=== PATIENT | male | born 1955 | race Caucasian/White ===

== ENCOUNTER 2024-04-10 11:26 | Inpatient (IN) ==
--- NOTE | 2024-04-10 11:45 | Emergency Department Note ---
Impression & Plan Hypoxia ADMIT ED Provider Note HPI: History obtained from patient. The patient is a 68-year-old gentleman with history of schizoaffective disorder, who presents the emergency department from his correctional facility with a chief complaint of altered mental status. Per report, the patient had some altered mentation beyond his baseline this morning and therefore was referred to the ER by medical staff at the intermediate. On arrival here to the ED the patient was noted to be hypotensive in the 60s, he was also hypoxic at 76 on room air. Patient was placed on nasal cannula oxygen and brought back to room B1 emergently for further assessment. On arrival here to the ED the patient is alert and he is able to follow commands, he is not able to provide me with much history and this is reportedly his baseline with history of schizoaffective disorder. He is responsive to verbal commands and appears to be protecting his airway without issue. ROS: - Per HPI Differential Diagnosis: Sepsis, pneumonia, stroke, intracranial hemorrhage, viral upper respiratory infection/COVID-19/influenza A, pleural effusion, pulmonary edema, acute coronary syndrome, pulmonary embolism, amongst other potential pathologies. *Outpatient medications and allergy history reviewed. 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, Psychiatric: Cooperative, confused at baseline with schizoaffective disorder INDEPENDENT INTERPRETATIONS: monitor tech: (As interpreted by myself): - An order was placed for continuous cardiac monitoring - Patient was noted to be in sinus rhythm with a rate of 98 EKG: (As interpreted by myself): Rate: 93 Rhythm: Normal sinus rhythm Intervals: Within normal limits ST changes: No ST elevation Time: 1143 Chest x-ray: (As interpreted by myself): Multifocal pneumonia pattern Interventions provided in ED: -IV fluid bolus, IV cefepime, IV azithromycin Medical Decision Making: IV was established and lab work obtained, patient was placed on teletypesetter monitor. Patient's blood pressure improved on reassessment into the 80s prior to IV fluids being initiated. Lab work shows no leukocytosis, hemoglobin is stable at 13.4, platelet count is normal, venous blood gas shows pH of 7.3, pCO2 is normal. CMP does not show any critical findings, creatinine is elevated at 1.55 with unclear baseline, lactic acid is also elevated at 3.5. Patient was given over 30 cc/kg of IV fluid and blood pressure improved to 101/64 prior to admission, troponin is noted to be negative. EKG per my interpretation shows normal sinus rhythm without any acute ischemic changes. Urinalysis shows trace ketones without obvious infection. Viral panel testing was obtained and is negative. Chest x-ray per my interpretation shows multifocal pneumonia pattern. Patient remained stable on 6 L oxy mask prior to admission. He appears improved on my reassessment. Lactic acid is downtrending on recheck to 2.3. I suspect his symptoms are secondary to multifocal pneumonia. CT imaging of the head was obtained that does not show any evidence of any acute intracranial process. I discussed the patient's presentation with the on-call hospitalist service for [facility], Sona Desai PA-C, and the patient was placed for admission in stable condition to the service of Dr. Lindquist. Consultants/Discussions held with other healthcare providers: -Hospitalist, Dr. Lindquist Disposition discussion held by myself with: -Patient and intermediate staff at the bedside * CRITICAL CARE TIME: ( 48 ) minutes -Management of patient with critical hypotension and hypoxia requiring IV fluid resuscitation and supplemental oxygen for hypoxia at 76% on room air on presentation, time spent at the bedside, interpretation of diagnostic studies, discussion with other healthcare providers and arrangement of admission. Diagnosis: 1. Multifocal pneumonia, acute 2. Hypotension, acute, fluid responsive 3. Hypoxia, acute 4. Lactic acidosis, acute 5. Ketonuria, acute Disposition: Admission Brian Lipscomb DO Emergency Medicine Past Med/Surg History Problem List (Updated 04/10/24 @ 15:01 by Brian Lipscomb DO) Hypoxia (Acute) Schizoaffective disorder Lactic acidosis Multifocal pneumonia Sepsis Medical History (Updated 04/10/24 @ 15:01 by Brian Lipscomb DO) Chronic constipation GERD (gastroesophageal reflux disease) HLD (hyperlipidemia) COPD (chronic obstructive pulmonary disease) Social History Smoking Status: Former smoker Preferred Language: [place] Home Meds Home Medications Medication Instructions Recorded Confirmed albuterol 90 mcg/actuation aerosol 90 mcg inhalation Q4H PRN 04/10/24 04/10/24 inhaler Shortness Of Breath aspirin 81 mg capsule 81 mg PO DAILY 04/10/24 04/10/24 brimonidine 0.2 % eye drops 1 drp ophthalmic (eye) TID 04/10/24 04/10/24 calcium polycarbophil 625 mg 1,250 mg PO BID 04/10/24 04/10/24 tablet (FiberCon) carbamazepine 200 mg tablet 200 mg PO BID 04/10/24 04/10/24 cholecalciferol (vitamin D3) 25 25 mcg PO DAILY 04/10/24 04/10/24 mcg (1,000 unit) tablet ciclesonide 80 mcg/actuation 1 puff inhalation Q12H 04/10/24 04/10/24 aerosol inhaler (Alvesco) levetiracetam 500 mg tablet 500 mg PO BID 04/10/24 04/10/24 levothyroxine 175 mcg tablet 175 mcg PO DAILY 04/10/24 04/10/24 linaclotide 145 mcg capsule 145 mcg PO DAILY 04/10/24 04/10/24 (Linzess) olanzapine 15 mg tablet 15 mg PO HS 04/10/24 04/10/24 omeprazole 40 mg capsule,delayed 40 mg PO BID 04/10/24 04/10/24 release rosuvastatin 10 mg tablet 10 mg PO DAILY 04/10/24 04/10/24 Results & Data (ED) Vital Signs Vital Signs - 24 hr 04/10/24 11:32 04/10/24 11:40 04/10/24 11:41 Temperature 36.6 C Temperature Source Skin Pulse Rate 98 H 96 H Pulse Rate [Right Finger] Pulse Rate from SpO2 Sensor Pulse Rhythm Regular Pulse Rhythm [Right Finger] Pulse Strength [Right Finger] Respiratory Rate 24 24 Respiratory Effort / Characteristics Non-Labored Spontaneous Respiratory Depth Normal Respiratory Pattern Regular Blood Pressure 65/45 L 85/58 L Blood Pressure [Left Arm] Blood Pressure Mean 51 72 Blood Pressure Mean [Left Arm] Blood Pressure Position [Left Arm] Pulse Oximetry 76 L 84 L 88 L Oxygen Delivery Method Room Air Oxymask Oxymask Oxygen Flow Rate 10 10 Sepsis Recent Fever Within 48 Hours No Sepsis New/Unexplained Change in Mental Status N/A Sepsis Action Taken by Nursing No Action Required 04/10/24 11:49 04/10/24 11:50 04/10/24 11:50 Temperature Temperature Source Pulse Rate 102 H 89 Pulse Rate [Right Finger] Pulse Rate from SpO2 Sensor 101 H Pulse Rhythm Pulse Rhythm [Right Finger] Pulse Strength [Right Finger] Respiratory Rate Respiratory Effort / Characteristics Respiratory Depth Respiratory Pattern Blood Pressure 87/67 L 99/67 L Blood Pressure [Left Arm] Blood Pressure Mean 75 71 Blood Pressure Mean [Left Arm] Blood Pressure Position [Left Arm] Pulse Oximetry Oxygen Delivery Method Oxygen Flow Rate Sepsis Recent Fever Within 48 Hours Sepsis New/Unexplained Change in Mental Status Sepsis Action Taken by Nursing 04/10/24 11:51 04/10/24 12:00 04/10/24 12:00 Temperature Temperature Source Pulse Rate 92 H Pulse Rate [Right Finger] Pulse Rate from SpO2 Sensor 93 H Pulse Rhythm Pulse Rhythm [Right Finger] Pulse Strength [Right Finger] Respiratory Rate 20 Respiratory Effort / Characteristics Respiratory Depth Respiratory Pattern Blood Pressure 116/85 116/85 Blood Pressure [Left Arm] Blood Pressure Mean 87 87 Blood Pressure Mean [Left Arm] Blood Pressure Position [Left Arm] Pulse Oximetry 97 Oxygen Delivery Method Oxymask Oxygen Flow Rate 10 Sepsis Recent Fever Within 48 Hours Sepsis New/Unexplained Change in Mental Status Sepsis Action Taken by Nursing 04/10/24 12:00 04/10/24 12:00 04/10/24 12:21 Temperature Temperature Source Pulse Rate 96 H 95 H Pulse Rate [Right Finger] Pulse Rate from SpO2 Sensor 99 H 93 H Pulse Rhythm Pulse Rhythm [Right Finger] Pulse Strength [Right Finger] Respiratory Rate 20 21 Respiratory Effort / Characteristics Respiratory Depth Respiratory Pattern Blood Pressure 116/85 Blood Pressure [Left Arm] Blood Pressure Mean 87 Blood Pressure Mean [Left Arm] Blood Pressure Position [Left Arm] Pulse Oximetry 92 96 Oxygen Delivery Method Oxymask Oxygen Flow Rate 10 Sepsis Recent Fever Within 48 Hours Sepsis New/Unexplained Change in Mental Status Sepsis Action Taken by Nursing 04/10/24 12:21 04/10/24 12:27 04/10/24 12:30 Temperature Temperature Source Pulse Rate 96 H Pulse Rate [Right Finger] 94 H Pulse Rate from SpO2 Sensor 96 H Pulse Rhythm Pulse Rhythm [Right Finger] Regular Pulse Strength [Right Finger] Normal Respiratory Rate 24 20 Respiratory Effort / Characteristics Non-Labored Spontaneous Respiratory Depth Normal Respiratory Pattern Regular Blood Pressure 144/80 H Blood Pressure [Left Arm] 104/72 Blood Pressure Mean 96 Blood Pressure Mean [Left Arm] 82 Blood Pressure Position [Left Arm] Sitting Pulse Oximetry 97 96 Oxygen Delivery Method Oxymask Oxygen Flow Rate 10 Sepsis Recent Fever Within 48 Hours Sepsis New/Unexplained Change in Mental Status Sepsis Action Taken by Nursing 04/10/24 12:45 04/10/24 12:45 04/10/24 12:48 Temperature Temperature Source Pulse Rate 96 H Pulse Rate [Right Finger] 94 H Pulse Rate from SpO2 Sensor 98 H Pulse Rhythm Pulse Rhythm [Right Finger] Regular Pulse Strength [Right Finger] Normal Respiratory Rate 20 21 Respiratory Effort / Characteristics Non-Labored Spontaneous Respiratory Depth Normal Respiratory Pattern Regular Blood Pressure 101/71 Blood Pressure [Left Arm] 101/69 Blood Pressure Mean 80 Blood Pressure Mean [Left Arm] 79 Blood Pressure Position [Left Arm] Sitting Pulse Oximetry 97 97 Oxygen Delivery Method Oxymask Oxygen Flow Rate 10 Sepsis Recent Fever Within 48 Hours Sepsis New/Unexplained Change in Mental Status Sepsis Action Taken by Nursing 04/10/24 12:49 04/10/24 12:57 04/10/24 13:15 Temperature Temperature Source Pulse Rate Pulse Rate [Right Finger] 96 H 95 H Pulse Rate from SpO2 Sensor Pulse Rhythm Pulse Rhythm [Right Finger] Regular Regular Pulse Strength [Right Finger] Normal Normal Respiratory Rate 22 20 Respiratory Effort / Characteristics Non-Labored Spontaneous Non-Labored Spontaneous Respiratory Depth Normal Normal Respiratory Pattern Regular Regular Blood Pressure 109/77 Blood Pressure [Left Arm] 106/76 106/70 Blood Pressure Mean 83 Blood Pressure Mean [Left Arm] 86 82 Blood Pressure Position [Left Arm] Sitting Sitting Pulse Oximetry 95 94 Oxygen Delivery Method Oxymask Oxymask Oxygen Flow Rate 10 6 Sepsis Recent Fever Within 48 Hours Sepsis New/Unexplained Change in Mental Status Sepsis Action Taken by Nursing 04/10/24 14:49 Temperature Temperature Source Pulse Rate Pulse Rate [Right Finger] 96 H Pulse Rate from SpO2 Sensor Pulse Rhythm Pulse Rhythm [Right Finger] Pulse Strength [Right Finger] Respiratory Rate 16 Respiratory Effort / Characteristics Spontaneous Respiratory Depth Respiratory Pattern Blood Pressure Blood Pressure [Left Arm] 101/64 Blood Pressure Mean Blood Pressure Mean [Left Arm] 76 Blood Pressure Position [Left Arm] Pulse Oximetry 93 Oxygen Delivery Method Oxymask Oxygen Flow Rate 6 Sepsis Recent Fever Within 48 Hours Sepsis New/Unexplained Change in Mental Status Sepsis Action Taken by Nursing Laboratory Data 04/10/24 11:45 04/10/24 11:45 Lab Results 04/10/24 04/10/24 04/10/24 Range/Units 11:40 11:45 11:46 WBC 8.09 (4.8-10.8) K/ul RBC 4.41 L (4.70-6.10) M/uL Hgb 13.4 L (14.0-18.0) g/dl POC Hgb (14.0-18.0) g/dl Hct 40.9 L (42.0-52.0) % POC Hct (42-52) % MCV 92.7 (80.0-100.0) fL MCH 30.4 (25.0-34.0) pg MCHC 32.8 (32.0-36.0) g/dL RDW Std Deviation 53.1 H (36.4-46.3) fL RDW Coeff of Yadira 15.9 H (11.5-14.5) % Plt Count 221 (130-400) K/uL MPV 12.3 (9.4-12.4) fL Immature Gran % (Auto) 0.1 % Neut % (Auto) 94.3 % Lymph % (Auto) 3.5 % [place] % (Auto) 1.7 % Eos % (Auto) 0.0 % Baso % (Auto) 0.4 % Neut # (Auto) 7.63 H (1.40-6.50) K/uL Lymph # (Auto) 0.28 L (1.20-3.40) K/uL [place] # (Auto) 0.14 (0.11-0.59) K/uL Eos # (Auto) 0.00 (0.00-0.50) K/uL Baso # (Auto) 0.03 (0.00-0.20) K/uL Immature Gran # (Auto) 0.01 (0.01-0.20) K/uL Toxic Vacuolation 2+ PT 12.2 H (9.0-12.0) Seconds INR 1.1 (0.9-1.1) VBG pH 7.30 L (7.36-7.41) VBG pCO2 47 (38-50) mmHg VBG pO2 33 mmHg VBG HCO3 23 mmol/L VBG O2 Saturation < 60.0 % VBG Base Excess -3.6 mEq/L POC Sodium (135-144) mmol/L Sodium 134 L (136-145) mmol/L POC Potassium (3.3-5.0) mmol/L Potassium 3.3 L (3.5-5.1) mmol/L POC Chloride (101-112) mmol/L Chloride 96 L (98-107) mmol/L Carbon Dioxide 26 (21-32) mmol/L POC Total CO2 (24-31) mmol/L Anion Gap 12 H (3-11) POC Anion Gap (16-25) mmol/L POC BUN (7-18) mg/dl BUN 28 H (6-23) mg/dl Creatinine 1.55 H (0.6-1.4) mg/dl POC Creatinine (0.6-1.3) mg/dl Est Cr Clr Drug Dosing 54.4 ml/min eGFR 49.06 BUN/Creatinine Ratio 18.1 (10-20) Glucose 111 H (70-99(Fasting)) mg/dl POC Glucose 106 H (70-99) mg/dl POC Glucose (other) (70-99) mg/dl Lactate (0.4-2.0) mmol/L Calcium 9.5 (8.6-10.3) mg/dl POC Ioniz Calcium Kaitlynn (1.12-1.32) mmol/l Magnesium 1.8 (1.7-2.4) mg/dl Total Bilirubin 0.9 (0.2-1.0) mg/dl Direct Bilirubin 0.3 H (0-0.2) mg/dl AST 20 (13-39) U/L ALT 15 (7-52) U/L Alkaline Phosphatase 71 (34-104) U/L Troponin I High Sens 6.9 (0-20) pg/ml Total Protein 6.9 (6.0-8.3) gm/dl Albumin 4.1 (3.4-5.0) gm/dl Procalcitonin Cancelled Urine Color Urine Appearance (Clear) Urine pH (4.5-7.5) Ur Specific [place] (1.000-1.030) Urine Protein (Negative) Urine Glucose (UA) (Negative) Urine Ketones (Negative) Urine Blood (Negative) Urine Nitrite (Negative) Urine Bilirubin (Negative) Urine Urobilinogen (Negative) Ur Leukocyte Esterase (Negative) Urine WBC (Auto) (0-5) /hpf Urine RBC (Auto) (0-2) /hpf U Hyaline Cast (Auto) (0-2) /lpf U Epithel Cells (Auto) (0-2) /hpf Urine Bacteria (Auto) (None Seen) Hyaline Casts (None Presnt) /lpf Other Casts (None Prsent) /lpf Adenovirus (PCR) Not Detected (NotDetected) B. pertussis DNA (PCR) Not Detected (NotDetected) B.parapertussis DNA PCR Not Detected (NotDetected) C. pneumoniae DNA (PCR) Not Detected (NotDetected) Coronavirus OC43 (PCR) Not Detected (NotDetected) Coronavirus HKU1 (PCR) Not Detected (NotDetected) Coronavirus 229E (PCR) Not Detected (NotDetected) SARS-CoV-2 (PCR) Not Detected (NotDetected) Coronavirus NL63 (PCR) Not Detected (NotDetected) Human Metapneumovir PCR Not Detected (NotDetected) Influenza Type A (PCR) Not Detected (NotDetected) Influenza Type B (PCR) Not Detected (NotDetected) M. pneumoniae (PCR) Not Detected (NotDetected) Parainfluenza 1 (PCR) Not Detected (NotDetected) Parainfluenza 2 (PCR) Not Detected (NotDetected) Parainfluenza 3 (PCR) Not Detected (NotDetected) Parainfluenza 4 (PCR) Not Detected (NotDetected) RSV (PCR) Not Detected (NotDetected) Entero/Rhino (PCR) Not Detected (NotDetected) 04/10/24 04/10/24 04/10/24 Range/Units 11:52 12:03 12:16 WBC (4.8-10.8) K/ul RBC (4.70-6.10) M/uL Hgb (14.0-18.0) g/dl POC Hgb 14.6 (14.0-18.0) g/dl Hct (42.0-52.0) % POC Hct 43 (42-52) % MCV (80.0-100.0) fL MCH (25.0-34.0) pg MCHC (32.0-36.0) g/dL RDW Std Deviation (36.4-46.3) fL RDW Coeff of Yadira (11.5-14.5) % Plt Count (130-400) K/uL MPV (9.4-12.4) fL Immature Gran % (Auto) % Neut % (Auto) % Lymph % (Auto) % [place] % (Auto) % Eos % (Auto) % Baso % (Auto) % Neut # (Auto) (1.40-6.50) K/uL Lymph # (Auto) (1.20-3.40) K/uL [place] # (Auto) (0.11-0.59) K/uL Eos # (Auto) (0.00-0.50) K/uL Baso # (Auto) (0.00-0.20) K/uL Immature Gran # (Auto) (0.01-0.20) K/uL Toxic Vacuolation PT (9.0-12.0) Seconds INR (0.9-1.1) VBG pH (7.36-7.41) VBG pCO2 (38-50) mmHg VBG pO2 mmHg VBG HCO3 mmol/L VBG O2 Saturation % VBG Base Excess mEq/L POC Sodium 134 L (135-144) mmol/L Sodium (136-145) mmol/L POC Potassium 3.3 (3.3-5.0) mmol/L Potassium (3.5-5.1) mmol/L POC Chloride 96 L (101-112) mmol/L Chloride (98-107) mmol/L Carbon Dioxide (21-32) mmol/L POC Total CO2 23 L (24-31) mmol/L Anion Gap (3-11) POC Anion Gap 19.0 (16-25) mmol/L POC BUN 27 H (7-18) mg/dl BUN (6-23) mg/dl Creatinine (0.6-1.4) mg/dl POC Creatinine 1.6 H (0.6-1.3) mg/dl Est Cr Clr Drug Dosing ml/min eGFR BUN/Creatinine Ratio (10-20) Glucose (70-99(Fasting)) mg/dl POC Glucose (70-99) mg/dl POC Glucose (other) 117 H (70-99) mg/dl Lactate 3.5 H* (0.4-2.0) mmol/L Calcium (8.6-10.3) mg/dl POC Ioniz Calcium Kaitlynn 1.16 (1.12-1.32) mmol/l Magnesium (1.7-2.4) mg/dl Total Bilirubin (0.2-1.0) mg/dl Direct Bilirubin (0-0.2) mg/dl AST (13-39) U/L ALT (7-52) U/L Alkaline Phosphatase (34-104) U/L Troponin I High Sens (0-20) pg/ml Total Protein (6.0-8.3) gm/dl Albumin (3.4-5.0) gm/dl Procalcitonin Urine Color Dark Yellow Urine Appearance Clear (Clear) Urine pH 5.5 (4.5-7.5) Ur Specific [place] 1.015 (1.000-1.030) Urine Protein Trace H (Negative) Urine Glucose (UA) Negative (Negative) Urine Ketones Trace H (Negative) Urine Blood Negative (Negative) Urine Nitrite Negative (Negative) Urine Bilirubin Negative (Negative) Urine Urobilinogen Negative (Negative) Ur Leukocyte Esterase Trace H (Negative) Urine WBC (Auto) 0-5 (0-5) /hpf Urine RBC (Auto) 0-2 (0-2) /hpf U Hyaline Cast (Auto) >20 H (0-2) /lpf U Epithel Cells (Auto) 0-2 (0-2) /hpf Urine Bacteria (Auto) None Seen (None Seen) Hyaline Casts Present A (None Presnt) /lpf Other Casts Convoluted A (None Prsent) /lpf Adenovirus (PCR) (NotDetected) B. pertussis DNA (PCR) (NotDetected) B.parapertussis DNA PCR (NotDetected) C. pneumoniae DNA (PCR) (NotDetected) Coronavirus OC43 (PCR) (NotDetected) Coronavirus HKU1 (PCR) (NotDetected) Coronavirus 229E (PCR) (NotDetected) SARS-CoV-2 (PCR) (NotDetected) Coronavirus NL63 (PCR) (NotDetected) Human Metapneumovir PCR (NotDetected) Influenza Type A (PCR) (NotDetected) Influenza Type B (PCR) (NotDetected) M. pneumoniae (PCR) (NotDetected) Parainfluenza 1 (PCR) (NotDetected) Parainfluenza 2 (PCR) (NotDetected) Parainfluenza 3 (PCR) (NotDetected) Parainfluenza 4 (PCR) (NotDetected) RSV (PCR) (NotDetected) Entero/Rhino (PCR) (NotDetected) 04/10/24 Range/Units 13:59 WBC (4.8-10.8) K/ul RBC (4.70-6.10) M/uL Hgb (14.0-18.0) g/dl POC Hgb (14.0-18.0) g/dl Hct (42.0-52.0) % POC Hct (42-52) % MCV (80.0-100.0) fL MCH (25.0-34.0) pg MCHC (32.0-36.0) g/dL RDW Std Deviation (36.4-46.3) fL RDW Coeff of Yadira (11.5-14.5) % Plt Count (130-400) K/uL MPV (9.4-12.4) fL Immature Gran % (Auto) % Neut % (Auto) % Lymph % (Auto) % [place] % (Auto) % Eos % (Auto) % Baso % (Auto) % Neut # (Auto) (1.40-6.50) K/uL Lymph # (Auto) (1.20-3.40) K/uL [place] # (Auto) (0.11-0.59) K/uL Eos # (Auto) (0.00-0.50) K/uL Baso # (Auto) (0.00-0.20) K/uL Immature Gran # (Auto) (0.01-0.20) K/uL Toxic Vacuolation PT (9.0-12.0) Seconds INR (0.9-1.1) VBG pH (7.36-7.41) VBG pCO2 (38-50) mmHg VBG pO2 mmHg VBG HCO3 mmol/L VBG O2 Saturation % VBG Base Excess mEq/L POC Sodium (135-144) mmol/L Sodium (136-145) mmol/L POC Potassium (3.3-5.0) mmol/L Potassium (3.5-5.1) mmol/L POC Chloride (101-112) mmol/L Chloride (98-107) mmol/L Carbon Dioxide (21-32) mmol/L POC Total CO2 (24-31) mmol/L Anion Gap (3-11) POC Anion Gap (16-25) mmol/L POC BUN (7-18) mg/dl BUN (6-23) mg/dl Creatinine (0.6-1.4) mg/dl POC Creatinine (0.6-1.3) mg/dl Est Cr Clr Drug Dosing ml/min eGFR BUN/Creatinine Ratio (10-20) Glucose (70-99(Fasting)) mg/dl POC Glucose (70-99) mg/dl POC Glucose (other) (70-99) mg/dl Lactate 2.3 H* (0.4-2.0) mmol/L Calcium (8.6-10.3) mg/dl POC Ioniz Calcium Kaitlynn (1.12-1.32) mmol/l Magnesium (1.7-2.4) mg/dl Total Bilirubin (0.2-1.0) mg/dl Direct Bilirubin (0-0.2) mg/dl AST (13-39) U/L ALT (7-52) U/L Alkaline Phosphatase (34-104) U/L Troponin I High Sens (0-20) pg/ml Total Protein (6.0-8.3) gm/dl Albumin (3.4-5.0) gm/dl Procalcitonin Urine Color Urine Appearance (Clear) Urine pH (4.5-7.5) Ur Specific [place] (1.000-1.030) Urine Protein (Negative) Urine Glucose (UA) (Negative) Urine Ketones (Negative) Urine Blood (Negative) Urine Nitrite (Negative) Urine Bilirubin (Negative) Urine Urobilinogen (Negative) Ur Leukocyte Esterase (Negative) Urine WBC (Auto) (0-5) /hpf Urine RBC (Auto) (0-2) /hpf U Hyaline Cast (Auto) (0-2) /lpf U Epithel Cells (Auto) (0-2) /hpf Urine Bacteria (Auto) (None Seen) Hyaline Casts (None Presnt) /lpf Other Casts (None Prsent) /lpf Adenovirus (PCR) (NotDetected) B. pertussis DNA (PCR) (NotDetected) B.parapertussis DNA PCR (NotDetected) C. pneumoniae DNA (PCR) (NotDetected) Coronavirus OC43 (PCR) (NotDetected) Coronavirus HKU1 (PCR) (NotDetected) Coronavirus 229E (PCR) (NotDetected) SARS-CoV-2 (PCR) (NotDetected) Coronavirus NL63 (PCR) (NotDetected) Human Metapneumovir PCR (NotDetected) Influenza Type A (PCR) (NotDetected) Influenza Type B (PCR) (NotDetected) M. pneumoniae (PCR) (NotDetected) Parainfluenza 1 (PCR) (NotDetected) Parainfluenza 2 (PCR) (NotDetected) Parainfluenza 3 (PCR) (NotDetected) Parainfluenza 4 (PCR) (NotDetected) RSV (PCR) (NotDetected) Entero/Rhino (PCR) (NotDetected) Administered Medications Discontinued Medications Sodium Chloride (Nss) 1,000 mls @ 999 mls/hr IV .Q1H1M KATHRIN Stop: 04/10/24 13:45 Last Admin: 04/10/24 11:52 Dose: 999 mls/hr Documented By: TERESA Cefepime HCl (Maxipime 2000mg) 2,000 mg in 20 mls @ 5 mls/min IV NOW STA; Protocol Stop: 04/10/24 13:05 Last Admin: 04/10/24 13:11 Dose: 5 mls/min Documented By: TERESA Sodium Chloride (Nss) 500 mls @ 999 mls/hr IV .Q31M ONE Stop: 04/10/24 13:34 Last Admin: 04/10/24 13:28 Dose: 999 mls/hr Documented By: TERESA Imaging Data Radiologist's Impression: Chest X-Ray 04/10/24 11:41 XR chest 1V portable CLINICAL HISTORY: Sepsis COMPARISON STUDY: No previous studies for comparison. FINDINGS: Multifocal bilateral airspace opacities are greater within the right lung. There is interstitial thickening. No pneumothorax or pleural effusion is identified. Cardiomediastinal silhouette is normal. Prominent gas-filled loops of bowel within the upper abdomen are present. There may be a large amount of stool within the splenic flexure of the colon. IMPRESSION: 1. Extensive bilateral airspace opacities, greater within the right lung, and interstitial thickening. The findings favor multifocal pneumonia. Asymmetric pulmonary edema could appear similar although is considered less likely. Radiographic follow-up to ensure resolution is recommended. 2. Distended loops of bowel within the upper abdomen, likely reflecting colonic loops. Suspected large amount of stool within the splenic flexure of the colon. ACT 112: Negative or not required by law. Electronically signed by: Jaun Bullock M.D. 04/10/2024 12:[address] 04/10/24 11:41 CT OF THE HEAD WITHOUT CONTRAST CLINICAL HISTORY: Altered mental status. COMPARISON STUDY: No previous studies for comparison. CT DOSE: 1016.05 mGy.cm TECHNIQUE: Helical axial images of the head were obtained without IV contrast. Automated exposure control was utilized for the study. A dose lowering technique was utilized adhering to the principles of ALARA. FINDINGS: This exam is mildly compromised by motion artifact. No acute intracranial hemorrhage, midline shift or mass effect is present. Ventricular system is unremarkable. Basal cisterns are patent. There are no extra-axial collections. Asymmetric bilateral basal ganglia calcification is present. There are no findings to suggest acute dural sinus thrombosis or acute territorial infarct. White matter hypodensity suggests small vessel disease. There are no calvarial fractures. Mastoid air cells are clear. Mild sinus opacification is present. IMPRESSION: No acute intracranial findings. Exam mildly compromised by motion artifact. ACT 112: Negative or not required by law. Electronically signed by: Jaun Bullock M.D. 04/10/2024 12:46 PM Discharge Plan Visit Data Chief Complaint: Vomiting Stated Complaint: VOMITING, DIARRHEA ED Provider: Brian Lipscomb Discharge Problem: Hypoxia Forms Stand Alone Forms: [facility] [employer] Prescriptions Prescriptions: No Action levothyroxine 175 mcg Tablet 175 mcg PO DAILY levetiracetam 500 mg Tablet 500 mg PO BID omeprazole 40 mg Capsule,Delayed Release(Dr/Ec) 40 mg PO BID carbamazepine 200 mg Tablet 200 mg PO BID brimonidine [Alphagan] 0.2 % Drops 1 drp OPHTHALMIC (EYE) TID Rx Instructions: administer approximately 8 hours apart calcium polycarbophil [FiberCon] 625 mg Tablet 1,250 mg PO BID olanzapine 15 mg Tablet 15 mg PO HS albuterol 90 mcg/actuation Aerosol 90 mcg INHALATION Q4H PRN (Reason: Shortness Of Breath) rosuvastatin 10 mg Tablet 10 mg PO DAILY cholecalciferol (vitamin D3) 25 mcg (1,000 unit) Tablet 25 mcg PO DAILY Alvesco 80 mcg/actuation Hfa Aerosol Inhaler 1 puff INHALATION Q12H Linzess 145 mcg Capsule 145 mcg PO DAILY aspirin 81 mg Capsule 81 mg PO DAILY Referrals Referrals: PCP,NO [Physician] -
[2024-04-10] MEDS: SODIUM CHLORIDE 0.9% 1,000 ML IV SCH (11:52)
[2024-04-10 12:05] LABS: iSTAT Creatinine 1.6 mg/dl (0.6-1.3); iSTAT Hemoglobin 14.6 g/dl (14.0-18.0); iSTAT Ionized Calcium 1.16 mmol/l (1.12-1.32); iSTAT Potassium 3.3 mmol/L (3.3-5.0)
[2024-04-10 12:24] LABS: Base Excess VBG -3.6 mEq/L; HCO3 VBG 23 mmol/L; Oxygen Saturation VBG < 60.0 %; PCO2 VBG 47 mmHg (38-50); PO2 VBG 33 mmHg
[2024-04-10 12:31] LABS: Hematocrit (blood only) 40.9 % (42.0-52.0); Hemoglobin 13.4 g/dl (14.0-18.0); Mean Corpuscular Hemoglobin 30.4 pg (25.0-34.0); Mean Corpuscular Hgb Conc 32.8 g/dL (32.0-36.0); Mean Corpuscular Volume 92.7 fL (80.0-100.0); Mean Platelet Volume 12.3 fL (9.4-12.4); Platelet Count 221 K/uL (130-400); RDW Coefficient of Variation 15.9 % (11.5-14.5); RDW Standard Deviation 53.1 fL (36.4-46.3); Red Blood Count 4.41 M/uL (4.70-6.10); White Blood Count 8.09 K/ul (4.8-10.8)
--- NOTE | 2024-04-10 12:38 | XRay Report ---
XR chest 1V portable CLINICAL HISTORY: Sepsis COMPARISON STUDY: No previous studies for comparison. FINDINGS: Multifocal bilateral airspace opacities are greater within the right lung. There is interst itial thickening. No pneumothorax or pleural effusion is identified. Cardiomediastinal silhouette is normal. Prominent gas-filled loops of bowel within the upper abdomen are present. There may be a larg e amount of stool within the splenic flexure of the colon. IMPRESSION: 1. Extensive bilateral airspace opacities, greater within the right lung, and interstitial thickening . The findings favor multifocal pneumonia. Asymmetric pulmonary edema could appear similar although i s considered less likely. Radiographic follow-up to ensure resolution is recommended. 2. Distended loops of bowel within the upper abdomen, likely reflecting colonic loops. Suspected larg e amount of stool within the splenic flexure of the colon. ACT 112: Negative or not required by law. Electronically signed by: Jaun Bullock M.D. 04/10/2024 12:36 PM
[2024-04-10 12:48] LABS: Basophils # (auto) 0.03 K/uL (0.00-0.20); Basophils % (auto) 0.4 %; Immature Granulocytes # (auto) 0.01 K/uL (0.01-0.20); Immature Granulocytes % (auto) 0.1 %; Lymphocytes # (auto) 0.28 K/uL (1.20-3.40); Lymphocytes % (auto) 3.5 %; Monocytes # (auto) 0.14 K/uL (0.11-0.59); Monocytes % (auto) 1.7 %; Neutrophils # (auto) 7.63 K/uL (1.40-6.50); Neutrophils % (auto) 94.3 %; Toxic Vacuolation 2+
--- NOTE | 2024-04-10 12:48 | CT Scan Report ---
CT OF THE HEAD WITHOUT CONTRAST CLINICAL HISTORY: Altered mental status. COMPARISON STUDY: No previous studies for comparison. CT DOSE: 1016.05 mGy.cm TECHNIQUE: Helical axial images of the head were obtained without IV contrast. Automated exposure con trol was utilized for the study. A dose lowering technique was utilized adhering to the principles o f ALARA. FINDINGS: This exam is mildly compromised by motion artifact. No acute intracranial hemorrhage, midli ne shift or mass effect is present. Ventricular system is unremarkable. Basal cisterns are patent. Th ere are no extra-axial collections. Asymmetric bilateral basal ganglia calcification is present. Ther e are no findings to suggest acute dural sinus thrombosis or acute territorial infarct. White matter hypodensity suggests small vessel disease. There are no calvarial fractures. Mastoid air cells are cl ear. Mild sinus opacification is present. IMPRESSION: No acute intracranial findings. Exam mildly compromised by motion artifact. ACT 112: Negative or not required by law. Electronically signed by: Jaun Bullock M.D. 04/10/2024 12:46 PM
[2024-04-10 12:51] LABS: Albumin Level 4.1 gm/dl (3.4-5.0); BUN Creatinine Ratio 18.1 (10-20); Bilirubin Direct 0.3 mg/dl (0-0.2); Bilirubin,Total 0.9 mg/dl (0.2-1.0); Calcium 9.5 mg/dl (8.6-10.3); Creatinine Clr Calc Pharmacy 54.4 ml/min; Magnesium 1.8 mg/dl (1.7-2.4); Potassium 3.3 mmol/L (3.5-5.1); Total Protein 6.9 gm/dl (6.0-8.3)
[2024-04-10 12:56] LABS: Troponin I High Sensitivity 6.9 pg/ml (0-20)
[2024-04-10 12:59] LABS: INR 1.1 (0.9-1.1); Prothrombin Time 12.2 Seconds (9.0-12.0)
[2024-04-10 13:01] LABS: Appearance Urine Clear (Clear); Bacteria Urine Automated None Seen (None Seen); Bilirubin Urine Negative (Negative); Blood Urine Negative (Negative); Cast Urine Automated >20 /lpf (0-2); Color Urine Dark Yellow; Epithelial Cell Urine Auto 0-2 /hpf (0-2); Glucose Urine UA Negative (Negative); Ketones Urine Trace (Negative); Leukocyte Esterase Urine Trace (Negative); Nitrite Urine Negative (Negative); Protein Urine Trace (Negative); Specific Gravity Urine 1.015 (1.000-1.030); Urobilinogen Urine Negative (Negative); WBC Urine Automated 0-5 /hpf (0-5); pH Urine 5.5 (4.5-7.5)
[2024-04-10 13:03] LABS: Hyaline Casts Urine Present /lpf (None Presnt)
[2024-04-10 13:06] LABS: Other Casts Urine Convoluted /lpf (None Prsent); RBC Urine Automated 0-2 /hpf (0-2)
[2024-04-10] MEDS: CEFEPIME 2000MG 2,000 MG/20 ML SYR IV STA (13:11)
[2024-04-10 13:15] LABS: Adenovirus PCR Not Detected (NotDetected); Bordetella parapertussis PCR Not Detected (NotDetected); Bordetella pertussis PCR Not Detected (NotDetected); Chlamydia pneumoniae PCR Not Detected (NotDetected); Coronavirus 229E PCR Not Detected (NotDetected); Coronavirus CoV-2 (COVID19)PCR Not Detected (NotDetected); Coronavirus HKU1 PCR Not Detected (NotDetected); Coronavirus NL63 PCR Not Detected (NotDetected); Coronavirus OC43PCR Not Detected (NotDetected); Human Metapneumovirus PCR Not Detected (NotDetected); Influenza A PCR Not Detected (NotDetected); Influenza B PCR Not Detected (NotDetected); Mycoplasma pneumoniae PCR Not Detected (NotDetected); Parainfluenza Virus 1 PCR Not Detected (NotDetected); Parainfluenza Virus 2 PCR Not Detected (NotDetected); Parainfluenza Virus 3 PCR Not Detected (NotDetected); Parainfluenza Virus 4 PCR Not Detected (NotDetected); Respiratory Syncytial VirusPCR Not Detected (NotDetected); Rhinovirus/Enterovirus PCR Not Detected (NotDetected)
[2024-04-10] MEDS: SODIUM CHLORIDE 0.9% 500 ML IV ONE (13:28)
--- NOTE | 2024-04-10 13:49 | Electrocardiogram Report ---
Test Reason : Blood Pressure : */* mmHG Vent. Rate : 93 BPM Atrial Rate : 93 BPM P-R Int : 138 ms QRS Dur : 80 ms QT Int : 360 ms P-R-T Axes : 69 92 77 degrees QTcB Int : 447 ms Normal sinus rhythm Rightward axis Borderline ECG No previous ECGs available Confirmed by Jaron Ham ([id number]) on 04/10/2024 1:49:12 PM Referred By: Alfonso CHRISTENSEN Confirmed By: Jaron Ham
--- NOTE | 2024-04-10 13:54 | History & Physical Report ---
Date of Service April 10, 2024 Assessment & Plan (1) Sepsis: (2) Multifocal pneumonia: (3) Lactic acidosis: (4) Schizoaffective disorder: Plan: Multifocal pneumonia Lactic acidosis Acute hypoxic respiratory failure -Admit to PCU -Sepsis protocol initiated -CXR showing multifocal pneumonia with questionable pulmonary edema -NSS x 1.5 L so far, continue with LR x 1.5 more liter -Follow blood cultures, obtain sputum culture -BioFire respiratory panel is negative, check MRSA swab -WBC 8.09, lactic acid initially elevated at 3.5--> 2.3 - Procal pending - Duoneb and hypertonic saline nebs scheduled - Obtain CT chest and CT abdomen -Incentive spirometer, flutter, Mucinex, supportive O2, wean as tolerated. Was initially placed on nonrebreather now on oxy mask at 6 L with satting in the mid 90s. - Started on zosyn and azithromycin IV Schizoaffective disorder - Cont on zyprexa for mood stabilization - Pt is conversational, oriented x 3, pleasant, expressed understanding of hospitalization Seizure disorder -Continue on Keppra and carbamazepine, no hx of seizure for many years Chronic constipation -Start MiraLAX and milk of magnesia p.o. scheduled, last BM on 04/09 COPD -Continue home inhalers Peripheral vascular disease Hyperlipidemia -Chronic, stable continue home meds Hypothyroidism -Continue levothyroxine daily -TSH with am labs GERD -Continue home PPI Glaucoma -patient reports that he is legally blind, assist with ambulation DVT ppx: teds, scds Lines: 2 PIV FEN/GI: Heart healthy CODE: Full code Dispo: From Alfonso CHRISTENSEN, likely to remain in the hospital x 1-2 days A total of {} minutes were spent with greater than 50% of that time face to face with the patient, personally reviewing all current laboratories, imaging studies, past medication reconciliation, outpatient chart review, and discussion with specialists to collaborate care for the patient with attending. Please see attending documentation for corrections and/or additions. History of Present Illness Chief Complaint: AMS Primary Care Provider: AMPARO Hamilton This is a 68-year-old male with PMHx of schizoaffective disorder, seizure, last seizure was many years ago, COPD, GERD, glaucoma, chronic constipation, hypothyroidism, HLD from [facility] who presents to the hospital with worsening altered mental status, increased confusion compared to his baseline via state vehicle from the residential. Pt states that he did not feel well for past few days, vomited x 1 today, and may have passed out at the prision. He states that he was admitted to a hospital 4 days ago but I cannot see any documentation from any recent hospitalization. Pt was found to be hypotensive with SBP in the 60s, hypoxic with O2 sats in the 80s, and was placed on a nonrebreather and administered sepsis protocol fluid resuscitation here in the ER. CXR is concerning for multifocal pneumonia with questionable pulmonary edema. He was started on cefepime and azithromycin IV for treatment of such. He is currently on an oxy mask at 6 L with O2 sats at 94%. Blood pressure has improved to 106/70 status post 1.5 L normal saline. Surgical Hx: Unknown Family Hx: Noncontributory Social Hx: Denies alcohol, ilicit drug use, previous smoking hx Home Medications Medication Instructions Recorded Confirmed Type albuterol 90 mcg/actuation aerosol 90 mcg inhalation Q4H PRN 04/10/24 04/10/24 History inhaler Shortness Of Breath aspirin 81 mg capsule 81 mg PO DAILY 04/10/24 04/10/24 History brimonidine 0.2 % eye drops 1 drp ophthalmic (eye) TID 04/10/24 04/10/24 History calcium polycarbophil 625 mg 1,250 mg PO BID 04/10/24 04/10/24 History tablet (FiberCon) carbamazepine 200 mg tablet 200 mg PO BID 04/10/24 04/10/24 History cholecalciferol (vitamin D3) 25 25 mcg PO DAILY 04/10/24 04/10/24 History mcg (1,000 unit) tablet ciclesonide 80 mcg/actuation 1 puff inhalation Q12H 04/10/24 04/10/24 History aerosol inhaler (Alvesco) levetiracetam 500 mg tablet 500 mg PO BID 04/10/24 04/10/24 History levothyroxine 175 mcg tablet 175 mcg PO DAILY 04/10/24 04/10/24 History linaclotide 145 mcg capsule 145 mcg PO DAILY 04/10/24 04/10/24 History (Linzess) olanzapine 15 mg tablet 15 mg PO HS 04/10/24 04/10/24 History omeprazole 40 mg capsule,delayed 40 mg PO BID 04/10/24 04/10/24 History release rosuvastatin 10 mg tablet 10 mg PO DAILY 04/10/24 04/10/24 History Past Med/Surg History Problem List (Updated 04/10/24 @ 15:01 by Brian Lipscomb DO) Hypoxia (Acute) Schizoaffective disorder Lactic acidosis Multifocal pneumonia Sepsis Medical History (Updated 04/10/24 @ 15:01 by Brian Lipscomb DO) Chronic constipation GERD (gastroesophageal reflux disease) HLD (hyperlipidemia) COPD (chronic obstructive pulmonary disease) Social History Smoking Status: Former smoker Preferred Language: Kiswahili Review of Systems Review of Systems: Constitutional: No fever, sweats or chills Eyes: + legally blind due to glaucoma, No diplopia, no worsening or blurred vis ion ENT: normal hearing, no trouble swallowing Respiratory: No cough, sputum, dyspnea at rest or on exertion Cardiovascular: No chest pain, tightness or palpitations Abdomen: No pain, nausea, vomiting, diarrhea, + hx of constipation but last BM was twice in the past 2 days Musculoskeletal: No joint pain, calf pain, swelling Neurologic: No weakness, numbness/tingling, or balance problems Psychiatric: No anxiety or depression, + schizoaffective Skin: No rash or itch Physical Exam Physical Exam: Please see physician addendum for physical exam. Results & Data Results & Data Vital Signs (Past 12 Hours) Vital Signs Temp Pulse Pulse Resp BP BP Pulse Ox 04/10/24 13:15 95 H 20 106/70 94 04/10/24 12:57 96 H 22 106/76 95 04/10/24 12:49 109/77 04/10/24 12:48 96 H 21 97 04/10/24 12:45 101/71 04/10/24 12:45 94 H 20 101/69 97 04/10/24 12:30 94 H 20 104/72 96 04/10/24 12:27 96 H 24 97 04/10/24 12:21 144/80 H 04/10/24 12:21 95 H 21 96 04/10/24 12:00 96 H 20 92 04/10/24 12:00 116/85 04/10/24 12:00 116/85 04/10/24 12:00 116/85 04/10/24 11:51 92 H 20 97 04/10/24 11:50 99/67 L 04/10/24 11:50 89 04/10/24 11:49 102 H 87/67 L 04/10/24 11:41 96 H 24 88 L 04/10/24 11:40 85/58 L 84 L 04/10/24 11:32 36.6 C 98 H 24 65/45 L 76 L O2 Del Method O2 Flow Rate 04/10/24 13:15 Oxymask 6 04/10/24 12:57 Oxymask 10 04/10/24 12:49 04/10/24 12:48 04/10/24 12:45 04/10/24 12:45 Oxymask 10 04/10/24 12:30 Oxymask 10 04/10/24 12:27 04/10/24 12:21 04/10/24 12:21 04/10/24 12:00 Oxymask 10 04/10/24 12:00 04/10/24 12:00 04/10/24 12:00 04/10/24 11:51 Oxymask 10 04/10/24 11:50 04/10/24 11:50 04/10/24 11:49 04/10/24 11:41 Oxymask 10 04/10/24 11:40 Oxymask 10 04/10/24 11:32 Room Air Laboratory Results 04/10/24 12:03 Aerobic Blood Culture - Pending Blood Anaerobic Blood Culture - Pending 04/10/24 12:03 Aerobic Blood Culture - Pending Blood Anaerobic Blood Culture - Pending 04/10/24 04/10/24 04/10/24 12:16 12:03 11:52 WBC RBC Hgb POC Hgb 14.6 Hct POC Hct 43 MCV MCH MCHC RDW Std Deviation RDW Coeff of Yadira Plt Count MPV Immature Gran % (Auto) Neut % (Auto) Lymph % (Auto) [place] % (Auto) Eos % (Auto) Baso % (Auto) Neut # (Auto) Lymph # (Auto) [place] # (Auto) Eos # (Auto) Baso # (Auto) Immature Gran # (Auto) Toxic Vacuolation PT INR VBG pH VBG pCO2 VBG pO2 VBG HCO3 VBG O2 Saturation VBG Base Excess POC Sodium 134 L Sodium POC Potassium 3.3 Potassium POC Chloride 96 L Chloride Carbon Dioxide POC Total CO2 23 L Anion Gap POC Anion Gap 19.0 POC BUN 27 H BUN Creatinine POC Creatinine 1.6 H Est Cr Clr Drug Dosing eGFR BUN/Creatinine Ratio Glucose POC Glucose POC Glucose (other) 117 H Lactate 3.5 H* Calcium POC Ioniz Calcium Kaitlynn 1.16 Magnesium Total Bilirubin Direct Bilirubin AST ALT Alkaline Phosphatase Troponin I High Sens Total Protein Albumin Procalcitonin Urine Color Dark Yellow Urine Appearance Clear Urine pH 5.5 Ur Specific [place] 1.015 Urine Protein Trace H Urine Glucose (UA) Negative Urine Ketones Trace H Urine Blood Negative Urine Nitrite Negative Urine Bilirubin Negative Urine Urobilinogen Negative Ur Leukocyte Esterase Trace H Urine WBC (Auto) 0-5 Urine RBC (Auto) 0-2 U Hyaline Cast (Auto) >20 H U Epithel Cells (Auto) 0-2 Urine Bacteria (Auto) None Seen Hyaline Casts Present A Other Casts Convoluted A Adenovirus (PCR) B. pertussis DNA (PCR) B.parapertussis DNA PCR C. pneumoniae DNA (PCR) Coronavirus OC43 (PCR) Coronavirus HKU1 (PCR) Coronavirus 229E (PCR) SARS-CoV-2 (PCR) Coronavirus NL63 (PCR) Human Metapneumovir PCR Influenza Type A (PCR) Influenza Type B (PCR) M. pneumoniae (PCR) Parainfluenza 1 (PCR) Parainfluenza 2 (PCR) Parainfluenza 3 (PCR) Parainfluenza 4 (PCR) RSV (PCR) Entero/Rhino (PCR) 04/10/24 04/10/24 04/10/24 11:46 11:45 11:40 WBC 8.09 RBC 4.41 L Hgb 13.4 L POC Hgb Hct 40.9 L POC Hct MCV 92.7 MCH 30.4 MCHC 32.8 RDW Std Deviation 53.1 H RDW Coeff of Yadira 15.9 H Plt Count 221 MPV 12.3 Immature Gran % (Auto) 0.1 Neut % (Auto) 94.3 Lymph % (Auto) 3.5 [place] % (Auto) 1.7 Eos % (Auto) 0.0 Baso % (Auto) 0.4 Neut # (Auto) 7.63 H Lymph # (Auto) 0.28 L [place] # (Auto) 0.14 Eos # (Auto) 0.00 Baso # (Auto) 0.03 Immature Gran # (Auto) 0.01 Toxic Vacuolation 2+ PT 12.2 H INR 1.1 VBG pH 7.30 L VBG pCO2 47 VBG pO2 33 VBG HCO3 23 VBG O2 Saturation < 60.0 VBG Base Excess -3.6 POC Sodium Sodium 134 L POC Potassium Potassium 3.3 L POC Chloride Chloride 96 L Carbon Dioxide 26 POC Total CO2 Anion Gap 12 H POC Anion Gap POC BUN BUN 28 H Creatinine 1.55 H POC Creatinine Est Cr Clr Drug Dosing 54.4 eGFR 49.06 BUN/Creatinine Ratio 18.1 Glucose 111 H POC Glucose 106 H POC Glucose (other) Lactate Calcium 9.5 POC Ioniz Calcium Kaitlynn Magnesium 1.8 Total Bilirubin 0.9 Direct Bilirubin 0.3 H AST 20 ALT 15 Alkaline Phosphatase 71 Troponin I High Sens 6.9 Total Protein 6.9 Albumin 4.1 Procalcitonin Cancelled Urine Color Urine Appearance Urine pH Ur Specific [place] Urine Protein Urine Glucose (UA) Urine Ketones Urine Blood Urine Nitrite Urine Bilirubin Urine Urobilinogen Ur Leukocyte Esterase Urine WBC (Auto) Urine RBC (Auto) U Hyaline Cast (Auto) U Epithel Cells (Auto) Urine Bacteria (Auto) Hyaline Casts Other Casts Adenovirus (PCR) Not Detected B. pertussis DNA (PCR) Not Detected B.parapertussis DNA PCR Not Detected C. pneumoniae DNA (PCR) Not Detected Coronavirus OC43 (PCR) Not Detected Coronavirus HKU1 (PCR) Not Detected Coronavirus 229E (PCR) Not Detected SARS-CoV-2 (PCR) Not Detected Coronavirus NL63 (PCR) Not Detected Human Metapneumovir PCR Not Detected Influenza Type A (PCR) Not Detected Influenza Type B (PCR) Not Detected M. pneumoniae (PCR) Not Detected Parainfluenza 1 (PCR) Not Detected Parainfluenza 2 (PCR) Not Detected Parainfluenza 3 (PCR) Not Detected Parainfluenza 4 (PCR) Not Detected RSV (PCR) Not Detected Entero/Rhino (PCR) Not Detected Diagnostic Findings Chest X-Ray 04/10/24 11:41 XR chest 1V portable CLINICAL HISTORY: Sepsis COMPARISON STUDY: No previous studies for comparison. FINDINGS: Multifocal bilateral airspace opacities are greater within the right lung. There is interstitial thickening. No pneumothorax or pleural effusion is identified. Cardiomediastinal silhouette is normal. Prominent gas-filled loops of bowel within the upper abdomen are present. There may be a large amount of stool within the splenic flexure of the colon. IMPRESSION: 1. Extensive bilateral airspace opacities, greater within the right lung, and interstitial thickening. The findings favor multifocal pneumonia. Asymmetric pulmonary edema could appear similar although is considered less likely. Radiographic follow-up to ensure resolution is recommended. 2. Distended loops of bowel within the upper abdomen, likely reflecting colonic loops. Suspected large amount of stool within the splenic flexure of the colon. ACT 112: Negative or not required by law. Electronically signed by: Jaun Bullock M.D. 04/10/2024 12:[address] 04/10/24 11:41 CT OF THE HEAD WITHOUT CONTRAST CLINICAL HISTORY: Altered mental status. COMPARISON STUDY: No previous studies for comparison. CT DOSE: 1016.05 mGy.cm TECHNIQUE: Helical axial images of the head were obtained without IV contrast. Automated exposure control was utilized for the study. A dose lowering technique was utilized adhering to the principles of ALARA. FINDINGS: This exam is mildly compromised by motion artifact. No acute intracranial hemorrhage, midline shift or mass effect is present. Ventricular system is unremarkable. Basal cisterns are patent. There are no extra-axial collections. Asymmetric bilateral basal ganglia calcification is present. There are no findings to suggest acute dural sinus thrombosis or acute territorial infarct. White matter hypodensity suggests small vessel disease. There are no calvarial fractures. Mastoid air cells are clear. Mild sinus opacification is present. IMPRESSION: No acute intracranial findings. Exam mildly compromised by motion artifact. ACT 112: Negative or not required by law. Electronically signed by: Jaun Bullock M.D. 04/10/2024 12:46 PM Supervising Physician Co-Signing Physician Notes Patient is a 68-year-old male with past medical history of GERD, seizure disorder, seizure affective disorder, peripheral vascular disease, COPD, hyperlipidemia was brought to the hospital from residential for concern of altered mental status. Patient was awake, oriented to self, place and time during the time of the evaluation. He reported that he felt dizzy today morning, reported " passing out", nausea and vomiting. He reports occasional cough due to his history of COPD. He denies feeling short of breath at this time. No fever, chills, abdominal pain or urinary symptoms. On physical examination; Constitutional: Awake, oriented to self, place and time. Respiratory: Decreased breath sound on right lower lung field. Cardiovascular: RRR, no murmur, no edema Vessels: no JVD or carotid bruit Chest: normal inspection of chest Abdomen: Soft, nontender. 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 Dorsalis pedis palpable bilaterally Neurologic: PERRL, EOMI, accommodation nl, no face palsy, no dysarthria CN's II- XI intact bilaterally and moves all extremities Psychiatric: A+Ox3, euthymic affect Assessment/plan Sepsis POA Multifocal pneumonia Acute hypoxic respiratory failure Possible CRISPIN versus CKD Constipation Patient presents from residential with reported history of altered mental status. Patient reported nausea, vomiting, dizziness and generalized weakness. Hypoxic to 70% of saturation on presentation, hypertensive Creatinine elevated to 1.55; baseline unknown Lactate elevated on admission, down trended with IV fluids Will start on Zosyn, vancomycin and azithromycin. Obtain MRSA nares. Follow-up on blood culture. Obtain CT chest without contrast to better delineate findings on chest x-ray. Obtain CT abdomen and pelvis Airway clearance therapy with flutter valve, DuoNebs plus hypertonic saline Sputum culture Bowel regimen with MiraLAX and milk of magnesia Continue home meds. I have reviewed the advanced practitioner's documentation, and I agree with, and take responsibility for the plan of care I spent a total of 40 minutes coordinating, documenting, and providing care for this patient excluding time spent in the performance of separately billed services. All of the aforementioned completed while collaborating with the assigned advanced practitioner for a full treatment plan
[2024-04-10] MEDS: AZITHROMYCIN 500 MG in DEXTROSE 5% 250 ML IV ONE (14:54)
--- NOTE | 2024-04-10 15:43 | CT Scan Report ---
CT SCAN OF THE CHEST WITHOUT IV CONTRAST CLINICAL HISTORY: Pneumonia. COMPARISON STUDY: Chest x-ray dated 04/10/2024. TECHNIQUE: CT scan of the thorax was performed from the thoracic inlet to the upper abdomen. Images are reviewed in the axial, sagittal, and coronal planes. IV contrast was not administered for this ex amination as per the referring clinician. A dose lowering technique was utilized adhering to the josselin nciples of REINA. The Examination is significantly compromised by motion artifact. FINDINGS: Thyroid: Not well visualized due to motion artifact. Thoracic aorta: There is atherosclerotic calcification of the thoracic aorta, which is normal in evelyn laxmi and demonstrates standard 3-vessel arch anatomy. Heart: The heart is mildly enlarged noting a small to moderate pericardial effusion. The coronary art eries are densely calcified. There is diminished attenuation of the cardiac blood pool as compared to the myocardium suggesting anemia. Lungs and pleural spaces: Evaluation of the lung parenchyma is compromised by motion artifact. Emphys ematous changes observed. Secretions are noted in the distal trachea and right mainstem bronchus. Mul tifocal airspace consolidation is seen throughout both lungs, most confluent in the right upper lobe and at the lung bases. There are trace pleural effusions. Mediastinum: There are mildly enlarged mediastinal lymph nodes. A prevascular node measures 1.2 cm in short axis. A subcarinal node measures 2.4 cm in short axis. Zulma: Not well assessed without IV contrast. Axillae: There is no axillary lymphadenopathy. Upper abdomen: Calcified gallstones are partially imaged. There is a small hiatal hernia. Pneumatosis intestinalis is seen within the partially imaged left colon. Skeletal structures: The skeletal structures are osteopenic. No lytic or blastic bony lesions are see n. Degenerative change is noted in the shoulders and spine. IMPRESSION: 1. Cardiomegaly and emphysema. 2. Multifocal airspace consolidation is typical for pneumonia. Clinical correlation will be required and radiographic follow-up to resolution is recommended. 3. Trace pleural effusions. 4. Nonspecific pneumatosis intestinalis is seen in the partially imaged left colon. 5. Mildly enlarged mediastinal lymph nodes are nonspecific and likely reactive. 6. Advanced coronary artery atherosclerosis. 7. Additional findings as above. ACT 112: Negative or not required by law. Electronically signed by: Haresh Milligan M.D. 04/10/2024 3:41 PM
--- NOTE | 2024-04-10 15:58 | CT Scan Report ---
CT SCAN OF THE ABDOMEN AND PELVIS WITHOUT IV CONTRAST CLINICAL HISTORY: Sepsis. COMPARISON STUDY: No priors. TECHNIQUE: CT scan of the abdomen and pelvis is performed from the lung bases to the proximal femora. Images are reviewed in the axial, sagittal, and coronal planes. IV contrast was not administered for this examination as per the referring clinician. Note that the examination was performed in signific antly suboptimal fashion without oral and IV contrast. A dose lowering technique was utilized adherin g to the principles of ALARA. CT DOSE: 580.3 mGy.cm FINDINGS: Lung bases: The heart is mildly enlarged noting a small to moderate pericardial effusion. The coronar y arteries are densely calcified. There is diminished attenuation of the cardiac blood pool as compar ed to the myocardium suggesting anemia. Emphysema is noted. Multiple airspace consolidation is seen a t the lung bases. There are trace pleural effusions. A small hiatal hernia is noted. Liver: The unenhanced liver is normal in size, contour, and attenuation. There is no intrahepatic jose iary ductal dilatation. Gallbladder: There are calcified gallstones with no CT evidence of acute cholecystitis. Spleen: Normal in size and attenuation. Pancreas: The unenhanced pancreas is mildly atrophic and grossly unremarkable. Adrenal glands: Unremarkable. Kidneys: The unenhanced kidneys are normal in size and without hydronephrosis. There are no renal jose culi identified. There is no evidence of contour deforming renal mass lesion. Abdominal vasculature: The abdominal aorta is normal in course and caliber noting advanced atheroscle rotic calcification. Bowel: There is rectosigmoid fecal impaction and moderate to severe constipation. The rectal wall is thickened with surrounding infiltration. The rectum measures up to 10.7 cm in diameter. There is nons pecific pneumatosis intestinalis seen involving the left colon, greatest involving the splenic flexur e and proximal descending colon. The small bowel loops are normal in caliber. The appendix is normal as visualized. Peritoneum: No intraperitoneal free air is clearly seen. There is no abdominal ascites. A fat-contain ing umbilical hernia is noted. Lymphadenopathy: None. Pelvic viscera: The bladder is decompressed around a Dumont catheter and not well assessed. The prosta te gland is mildly enlarged. Skeletal structures: The skeletal structures are osteopenic. There is moderate lumbosacral spondylosi s. No lytic or blastic lesions are seen. IMPRESSION: 1. Significant suboptimal examination without oral and IV contrast. 2. There is rectosigmoid fecal reaction and moderate to severe constipation with diffuse colonic dist ention. 3. There is evidence of a nonspecific proctocolitis, likely stercoral. 4. There is nonspecific pneumatosis intestinalis of left colon as detailed above, which may be relate d to stercoral proctocolitis. This could also potentially be seen in the setting of bowel ischemia. C linical correlation will be essential. 5. The small bowel loops normal caliber with no evidence of high-grade obstruction. 6. Cardiomegaly and emphysema. 7. Cholelithiasis. 8. Additional findings as above. ACT 112: Negative or not required by law. Electronically signed by: Haresh Milligan M.D. 04/10/2024 3:56 PM
[2024-04-10] MEDS ORDERED: ONDANSETRON INJ 2 MG/ML 2 ML VIAL IV PRN (16:07)
[2024-04-10] MEDS ORDERED: VANCOMYCIN CONSULT ACTIVE PRN (16:07)
[2024-04-10] MEDS ORDERED: Patient's ALLERGY Info needs ENTERED SCH (16:15)
[2024-04-10] MEDS: BENZONATATE 100 MG CAPSULE PO SCH (17:06)
[2024-04-10] MEDS: LACTATED RINGER'S 1,000 ML IV SCH (17:06)
[2024-04-10] MEDS: bisacodyL 10 MG SUPP PR STA (17:06)
[2024-04-10] MEDS: VANCOMYCIN HCL 2,000 MG in SODIUM CHLORIDE 0.9% 500 ML IV ONE (17:07)
[2024-04-10] MEDS: 4.5GM X1 IV ONE (17:07)
[2024-04-10] MEDS: levETIRAcetam 500 MG TAB PO SCH (17:31)
[2024-04-10] MEDS: MAGNESIUM HYDROXIDE SUSP 30 ML UDC PO SCH ×2 (17:31→17:54)
[2024-04-10] MEDS: SODIUM CHLOR 7% 4 ML NEB NEB SCH (20:02)
[2024-04-10] MEDS: PANTOprazole 40 MG TAB PO SCH (20:29)
[2024-04-10] MEDS: OLANZapine 5 MG TABLET PO SCH (20:30)
[2024-04-10] MEDS: carBAMazepine 200 MG TABLET PO SCH (20:30)
[2024-04-10] MEDS: guaiFENesin 600 MG TABCR PO SCH (20:31)
[2024-04-10] MEDS: BRIMONIDINE TARTRATE 0.2% 5ML OP SCH (20:32)
[2024-04-10] MEDS: HEPARIN SOD 5,000 UNIT/0.5 ML VIAL SQ SCH (20:43)
[2024-04-10] MEDS: POLYETHYLENE (MIRALAX) 17 GM PACK PO SCH (20:44)
[2024-04-10] MEDS: ALBUMIN 25% 25 GM/100 ML VIAL IV ONE ×2 (20:49→23:14)
[2024-04-10] MEDS ORDERED: MAGNESIUM HYDROXIDE SUSP 30 ML UDC PO SCH (21:00)
[2024-04-10 21:33] LABS: Base Excess VBG -1.9 mEq/L; HCO3 VBG 24 mmol/L; Oxygen Saturation VBG < 60.0 %; PCO2 VBG 46 mmHg (38-50); PO2 VBG 31 mmHg; pH VBG 7.33 (7.36-7.41)
[2024-04-10] MEDS: PIPERACILLIN/TAZOBACTAM 4.5 GM/100 ML BAG IV SCH (22:18)
[2024-04-10] MEDS: MIDODRINE HCL 2.5 MG TAB PO STA (22:25)
[2024-04-11] MEDS: MIDODRINE HCL 2.5 MG TAB PO STA (00:46)
--- NOTE | 2024-04-11 01:00 | Communication Note ---
Date of Service: April 11, 2024 Patient with persistent hypotension despite infusion of 4 L crystalloid since admission yesterday, multiple antibiotic Rx, and midodrine. Persistent lactic acidosis elevated. Patient without abdominal complaints as per RN. AP Septic shock ICU transfer to facilitate Levophed
[2024-04-11] MEDS: LACTULOSE SYRUP 30 GM/45 ML UDP PO STA (01:24)
[2024-04-11] MEDS: ALBUMIN 25% 12.5 GM/50 ML VIAL IV ONE (01:24)
[2024-04-11] MEDS: LINACLOTIDE 145 MCG CAPSULE PO SCH (01:32)
[2024-04-11 01:48] LABS: Thyroid Stimulating Hormone 6.985 uIu/ml (0.300-4.500)
[2024-04-11 02:20] LABS: T4 Free Thyroxine 0.96 ng/dl (0.61-1.60)
[2024-04-11] MEDS ORDERED: STAT IV Infusion **Titration per Protocol STA ×2 (02:37→02:59)
[2024-04-11] MEDS: NOREPINEPHRINE/D5W 4 MG/250 ML PLCT IV SCH ×2 (03:12→03:55)
[2024-04-11] MEDS: LACTATED RINGER'S 1,000 ML IV SCH (03:12)
[2024-04-11] MEDS: OPTIRAY 320 125ml IV ONE (03:36)
--- NOTE | 2024-04-11 03:44 | Critical Care Consultation ---
Date of Consultation April 11, 2024 Assessment & Plan (1) Shock: (2) Stercoral colitis: (3) Fecal impaction: (4) Hypoxia: (5) Schizoaffective disorder: (6) Electrolyte disturbance: (7) Multifocal pneumonia: Plan Reason Critically Ill: 68 YOM admitted for pneumonia, stool impaction found to have pneumatosis on CT scan as well as elnarged colon- now transferred to ICU secondary to refractory hypotension. Neuro - hx of seizure disorder, schizoaffective disorder, glaucoma- no acute needs CAM ICU: Negative - Continue carbamazepine, keppra - For his mood stabilization continue with olanzapine - Continue eye drops for glaucoma Cardiac - Shock unspecified, HLD - Shock unspecified- however likely distributive in setting of severe constipation with colitis- may also have a component of hypovolemia -Vasopressor support to keep MAP greater than 65 - Trend lactate - Follow blood and urine cultures Respiratory - Multifocal airspace opacities, hypoxia, COPD - Multifocal airspace opacities likely related to aspiration O2 supplementation to keep oxygen saturation between 90-92% Not in COPD exacerbation GI - Severe constipation, stercoral colitis, pneumatosis intestinales, enlarged colon - Patient was started on stool softeners and enema on admission-s/p manual disimpaction morning of 04/11/2024 -Surgery has been consulted, No intervention from them for the time being - Appears to also have hx of IBS with frequent constipation - continue Linzess - Continue home PPI RENAL/LYTES - CRISPIN - unknown baseline with our current record view- [employer] 1.5 which might be around his normal -Trend BUN/creatinine Avoid nephrotoxic medication ENDO - Hypothyroidism - No acute needs- continue home Synthroid HEME - No acute needs ID - Septic shock - likely GI related vs. Pulmonary or combination of the two - Continue broad spectrum with Zosyn and Vancomycin - MRSA swab- if negative can likely discontinue the Vancomycin - Continue with crystalloid support and trend lactate and renal function LINES/IV ACCESS - PIV x3, skelton catheter Continue use of these lines DVT PROPHYLAXIS - SCDS, Heparin 5, 000 units sq q12 DISPO: ICU while on vasopressors Supervising Physician Co-Signing Physician Notes I saw and evaluated the patient with ANDRE Lloyd, and agree with findings and plan as documented in the note. CT chest 04/10/2024 personally reviewed: Motion degraded study Patchy opacities appreciated bilaterally right upper right middle lingula as well as bilateral lower lobes Cardiomegaly With trace bilateral pleural effusion Minimal mediastinal and hilar lymphadenopathy 68-year-old male admitted to the hospital for pneumonia and was found to have enlarged lower colon. Was admitted to the ICU for hypotension Past medical history: COPD, Hypothyroidism At the time of examination patient was saturating 94% on 2 L nasal cannula, I went down to 1 L He denied any chest pain, no shortness of breath He complained of mild abdominal pain in the lower quadrant. No nausea vomiting No headache, no blurry vision Constitutional: No acute distress HEENT: EOMI, PERRLA Respiratory system: Decreased air entry bilaterally, no wheeze, no rhonchi, positive crackles bilaterally CVS: S1-S2 positive, no murmurs or gallops Abdomen: Soft, nondistended, positive bowel sounds x4, minimal right lower quadrant tenderness, no rebound Extremities: +2 pulses bilaterally radialis/ dorsalis pedis, no cyanosis, no edema Neuro: Awake alert oriented to self and place Psych: Normal mood and affect G/U: Positive Skelton --Prophylaxis VTE: Heparin GI: Pantoprazole Lines: Peripheral Diet: N.p.o. Plan: In/out: Positive 3 liters, urine output [id number] Patient has been off vasopressors since 6 AM. At the time of examination MAP was in the high 60s to low 70s Continue with antibiotics for covering multilobar pneumonia. Will get official swallow eval to make sure he is not aspirating. 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 As per them it is very minimal and seems to be improved compared to the CAT scan which is then 04/10/2024 DC vancomycin Continue with carbamazepine and [facility] Vascular surgery consulted for SMA occlusion Potassium being replaced Repeat BMP as well as H&H later today Will try to see how the patient is doing in the next 6 hours. If he is able to maintain his blood pressure off vasopressors then we will consider downgrading him I have personally spent 55 minutes of critical care time in the direct management of this patient. This is a life/limb threatening event. This includes time spent evaluating patient, direct bedside care, chart review, placing orders, interpretation of diagnostic studies, discussion with consultants, patient, and family members, as well as other required patient management activities. This time is exclusive of all separately billable procedures, and teaching time and separate from and in addition to any other critical care service time. Please note the above document was generated using voice recognition software. It may contain grammatical, syntax or spelling errors. History of Present Illness Reason for Consultation: shock unspecified Requesting Physician: Jonn Beckford Attending Physician: Jon Rodriguez MD History of Present Illness 68 YOM with medical history of: Schizoaffective disorder, seizure (on Carbamazepine), COPD, GERD, Glaucoma, Constipation, Hypothyroidism, HTN, HLD. Patient is in[facility]mate at [facility]. Initially admitted on with confusion, generalized not feeling well, vomiting episode and possible syncope. In EMD the patient was noted to be hypotensive and hypoxic. He initially responded well to IVF. His CXR was noted for diffuse opacities and CT scan without contrast was with multifocal areas of consolidation likely pneumonia/pneumonitis from aspiration, CT of the abdomen without contrast noted severe stool burden with impaction and colonic distention initially measured at 10cm, proctocolitis and nonspecific pneumatosis of the colon. Later in the evening the patient was having worsening hypotension that was managed by the hospitalist with albumin 25 Gm x2 and midodrine, without effect on blood pressure. ICU was consulted for refractory hypotension. Patient arrives to the ICU mentating well, talking, denies abdominal pain and is generally soft. He reports last BM 2 days ago and was mostly liquid, he reports not being able to see well, so could not tell if there was blood. He reports having some abdominal pain earlier in the week as well as vomiting, which he thinks was just one or two times. BP will be stabilized with vasopressor agents, CTA of the abdomen will be obtained to rule out any ischemia as well as re-evaluate colon size. CODE: FULL Allergies Allergy/AdvReac Type Severity Reaction Status Date / Time No Known Allergies Allergy Verified 04/10/24 16:36 Home Medications Medication Instructions Recorded Confirmed Type albuterol 90 mcg/actuation aerosol 90 mcg inhalation Q4H PRN 04/10/24 04/10/24 History inhaler Shortness Of Breath aspirin 81 mg capsule 81 mg PO DAILY 04/10/24 04/10/24 History brimonidine 0.2 % eye drops 1 drp ophthalmic (eye) TID 04/10/24 04/10/24 History calcium polycarbophil 625 mg 1,250 mg PO BID 04/10/24 04/10/24 History tablet (FiberCon) carbamazepine 200 mg tablet 200 mg PO BID 04/10/24 04/10/24 History cholecalciferol (vitamin D3) 25 25 mcg PO DAILY 04/10/24 04/10/24 History mcg (1,000 unit) tablet ciclesonide 80 mcg/actuation 1 puff inhalation Q12H 04/10/24 04/10/24 History aerosol inhaler (Alvesco) levetiracetam 500 mg tablet 500 mg PO BID 04/10/24 04/10/24 History levothyroxine 175 mcg tablet 175 mcg PO DAILY 04/10/24 04/10/24 History linaclotide 145 mcg capsule 145 mcg PO DAILY 04/10/24 04/10/24 History (Linzess) olanzapine 15 mg tablet 15 mg PO HS 04/10/24 04/10/24 History omeprazole 40 mg capsule,delayed 40 mg PO BID 04/10/24 04/10/24 History release rosuvastatin 10 mg tablet 10 mg PO DAILY 04/10/24 04/10/24 History Patient History Medical History Chronic constipation GERD (gastroesophageal reflux disease) HLD (hyperlipidemia) COPD (chronic obstructive pulmonary disease) Social History Smoking Status: Former smoker Hx Alcohol Use: No Hx Substance Use: No Preferred Language: [place] Communication Ability: Unable Injection Molding Supervisor Required: No Beliefs That Will Affect Care: None Current Living Situation: Other Current Living Situation Comment: [facility] Other Information That Helps Us Care for You: No Assistive Devices: None Review of Systems Review of Systems: REVIEW OF SYSTEMS: Constitutional: No fever, sweats or chills Eyes: (+) poor vision from glaucoma, No diplopia, no worsening or blurred vision ENT: (+) difficulty hearing, dentures Respiratory: (+) dyspnea with exertion, No cough, sputum, Cardiovascular: No chest pain, tightness or palpitations Abdomen: (+) pain, nausea, vomiting, diarrhea and constipation Musculoskeletal: No joint pain, calf pain, swelling Neurologic: No weakness, numbness/tingling, or balance problems Psychiatric: (+) hx schizophrenia, currently mood stable Skin: No rash or itch Physical Exam Physical Exam: PHYSICAL EXAM: General: awake, alert, no apparent distress Head: Normocephalic, atraumatic ENT: EOMI, no pharyngeal exudate, mucous membranes dry Neuro: AAO x 3, speech clear and appropriate- difficult to understand at times secondary to no dentures and dry mouth, strength intact bilaterally 5/5, sensation intact and equal all extremities and dermatomes, no pronator drift Chest: equal rise and fall of the chest, no accessory muscle use, no heaves or thrills, decreased in bases end expiratory wheeze throughout, on 5L NC Cardiac: Regular rate and rhythm, telelmetry reviewed, skin warm dry, cap refill <3 seconds, peripheral pusles +2 no JVD, no murmur, no JVD, no edema GI: NABS x 4 quadrants, softly distended, nontender to palpation, no rebound, guarding or tenderness : Skelton to gravity Extremities: Normal inspection, no peripheral edema or erythema, calfs nontender to palpation Psych: Normal mood and affect Results & Data Results & Data Vital Signs (Past 12 Hours) Vital Signs Temp Pulse Pulse Resp BP BP Pulse Ox 04/11/24 02:32 75/54 L 04/11/24 01:48 95/58 L 04/11/24 00:51 85/56 L 04/11/24 00:44 79/50 L 04/11/24 00:12 04/10/24 23:55 88 04/10/24 23:39 36.8 C 87 18 81/53 L 99 04/10/24 22:23 88/55 L 04/10/24 20:31 85/57 L 04/10/24 20:10 36.7 C 90 22 90/62 L 96 04/10/24 20:02 83 18 96 04/10/24 15:50 95 H 04/10/24 15:50 04/10/24 15:50 36.8 C 91 H 18 103/69 96 O2 Del Method O2 Flow Rate 04/11/24 02:32 04/11/24 01:48 04/11/24 00:51 04/11/24 00:44 04/11/24 00:12 Oxymask 6 04/10/24 23:55 10/06/24 23:39 Oxymask 9 04/10/24 22:23 04/10/24 20:31 04/10/24 20:10 Nasal Cannula 5.0 04/10/24 20:02 Nasal Cannula 5 04/10/24 15:50 04/10/24 15:50 Oxymask 6 04/10/24 15:50 Oxymask 6 Laboratory Results Abnormal lab results 04/10/24 04/10/24 04/10/24 Range/Units 11:40 11:45 11:52 RBC 4.41 L (4.70-6.10) M/uL Hgb 13.4 L (14.0-18.0) g/dl Hct 40.9 L (42.0-52.0) % RDW Std Deviation 53.1 H (36.4-46.3) fL RDW Coeff of Yadira 15.9 H (11.5-14.5) % Neut # (Auto) 7.63 H (1.40-6.50) K/uL Lymph # (Auto) 0.28 L (1.20-3.40) K/uL PT 12.2 H (9.0-12.0) Seconds VBG pH 7.30 L (7.36-7.41) POC Sodium 134 L (135-144) mmol/L Sodium 134 L (136-145) mmol/L Potassium 3.3 L (3.5-5.1) mmol/L POC Chloride 96 L (101-112) mmol/L Chloride 96 L (98-107) mmol/L POC Total CO2 23 L (24-31) mmol/L Anion Gap 12 H (3-11) POC BUN 27 H (7-18) mg/dl BUN 28 H (6-23) mg/dl Creatinine 1.55 H (0.6-1.4) mg/dl POC Creatinine 1.6 H (0.6-1.3) mg/dl Glucose 111 H (70-99(Fasting)) mg/dl POC Glucose 106 H (70-99) mg/dl POC Glucose (other) 117 H (70-99) mg/dl Lactate (0.4-2.0) mmol/L Direct Bilirubin 0.3 H (0-0.2) mg/dl B-Natriuretic Peptide (0-100) pg/ml TSH 6.985 H (0.300-4.500) uIu/ml Urine Protein (Negative) Urine Ketones (Negative) Ur Leukocyte Esterase (Negative) U Hyaline Cast (Auto) (0-2) /lpf Hyaline Casts (None Presnt) /lpf Other Casts (None Prsent) /lpf 04/10/24 04/10/24 04/10/24 Range/Units 12:03 12:16 13:59 RBC (4.70-6.10) M/uL Hgb (14.0-18.0) g/dl Hct (42.0-52.0) % RDW Std Deviation (36.4-46.3) fL RDW Coeff of Yadira (11.5-14.5) % Neut # (Auto) (1.40-6.50) K/uL Lymph # (Auto) (1.20-3.40) K/uL PT (9.0-12.0) Seconds VBG pH (7.36-7.41) POC Sodium (135-144) mmol/L Sodium (136-145) mmol/L Potassium (3.5-5.1) mmol/L POC Chloride (101-112) mmol/L Chloride (98-107) mmol/L POC Total CO2 (24-31) mmol/L Anion Gap (3-11) POC BUN (7-18) mg/dl BUN (6-23) mg/dl Creatinine (0.6-1.4) mg/dl POC Creatinine (0.6-1.3) mg/dl Glucose (70-99(Fasting)) mg/dl POC Glucose (70-99) mg/dl POC Glucose (other) (70-99) mg/dl Lactate 3.5 H* 2.3 H* (0.4-2.0) mmol/L Direct Bilirubin (0-0.2) mg/dl B-Natriuretic Peptide (0-100) pg/ml TSH (0.300-4.500) uIu/ml Urine Protein Trace H (Negative) Urine Ketones Trace H (Negative) Ur Leukocyte Esterase Trace H (Negative) U Hyaline Cast (Auto) >20 H (0-2) /lpf Hyaline Casts Present A (None Presnt) /lpf Other Casts Convoluted A (None Prsent) /lpf 04/10/24 04/11/24 Range/Units 21:19 00:31 RBC (4.70-6.10) M/uL Hgb (14.0-18.0) g/dl Hct (42.0-52.0) % RDW Std Deviation (36.4-46.3) fL RDW Coeff of Yadira (11.5-14.5) % Neut # (Auto) (1.40-6.50) K/uL Lymph # (Auto) (1.20-3.40) K/uL PT (9.0-12.0) Seconds VBG pH 7.33 L (7.36-7.41) POC Sodium (135-144) mmol/L Sodium (136-145) mmol/L Potassium (3.5-5.1) mmol/L POC Chloride (101-112) mmol/L Chloride (98-107) mmol/L POC Total CO2 (24-31) mmol/L Anion Gap (3-11) POC BUN (7-18) mg/dl BUN (6-23) mg/dl Creatinine (0.6-1.4) mg/dl POC Creatinine (0.6-1.3) mg/dl Glucose (70-99(Fasting)) mg/dl POC Glucose (70-99) mg/dl POC Glucose (other) (70-99) mg/dl Lactate 2.9 H* 2.6 H* (0.4-2.0) mmol/L Direct Bilirubin (0-0.2) mg/dl B-Natriuretic Peptide 225 H (0-100) pg/ml TSH (0.300-4.500) uIu/ml Urine Protein (Negative) Urine Ketones (Negative) Ur Leukocyte Esterase (Negative) U Hyaline Cast (Auto) (0-2) /lpf Hyaline Casts (None Presnt) /lpf Other Casts (None Prsent) /lpf Medications Administered Home Medications albuterol 90 mcg/actuation aerosol inhaler 90 mcg inhalation Q4H PRN Shortness Of Breath 04/10/24 [History Confirmed 04/10/24] aspirin 81 mg capsule 81 mg PO DAILY 04/10/24 [History Confirmed 04/10/24] brimonidine 0.2 % eye drops 1 drp ophthalmic (eye) TID 04/10/24 [History Confirmed 04/10/24] calcium polycarbophil 625 mg tablet (FiberCon) 1,250 mg PO BID 04/10/24 [History Confirmed 04/10/24] carbamazepine 200 mg tablet 200 mg PO BID 04/10/24 [History Confirmed 04/10/24] cholecalciferol (vitamin D3) 25 mcg (1,000 unit) tablet 25 mcg PO DAILY 04/10/24 [History Confirmed 04/10/24] ciclesonide 80 mcg/actuation aerosol inhaler (Alvesco) 1 puff inhalation Q12H 04/10/24 [History Confirmed 04/10/24] levetiracetam 500 mg tablet 500 mg PO BID 04/10/24 [History Confirmed 04/10/24] levothyroxine 175 mcg tablet 175 mcg PO DAILY 04/10/24 [History Confirmed 04/10/24] linaclotide 145 mcg capsule (Linzess) 145 mcg PO DAILY 04/10/24 [History Confirmed 04/10/24] olanzapine 15 mg tablet 15 mg PO HS 04/10/24 [History Confirmed 04/10/24] omeprazole 40 mg capsule,delayed release 40 mg PO BID 04/10/24 [History Confirmed 04/10/24] rosuvastatin 10 mg tablet 10 mg PO DAILY 04/10/24 [History Confirmed 04/10/24] Active Medications Acetaminophen (Acetaminophen 325 Mg Tab) 650 mg PO Q4H PRN PRN Reason: Moderate Pain (Scale 4, 5, 6) Stop: 05/10/24 16:06 Aspirin (Aspirin 81 Mg Ectab) 81 mg PO DAILY [facility] Stop: 05/11/24 08:59 Benzonatate (Benzonatate 100 Mg Capsule) 100 mg PO TID [facility] Stop: 05/10/24 16:06 Last Admin: 04/10/24 20:30 Dose: 100 mg Brimonidine Tartrate (Brimonidine Tartrate 0.2% 5ml) 1 drops OP TID [facility] Stop: 05/10/24 20:59 Last Admin: 04/10/24 20:32 Dose: 1 drops Carbamazepine (Carbamazepine 200 Mg Tablet) 200 mg PO BID [facility] Stop: 05/10/24 20:59 Last Admin: 04/10/24 20:30 Dose: 200 mg Fluticasone Furoate (Fluticasone Furoate 100mcg 14 Puffs/Inhaler) 1 puffs INH DAILY [facility] Stop: 05/11/24 08:59 Guaifenesin (Guaifenesin 600 Mg Tabcr) 1,200 mg PO Q12 [facility] Stop: 05/10/24 20:59 Last Admin: 04/10/24 20:31 Dose: 1,200 mg Heparin Sodium (Porcine) (Heparin Sod 5,000 Unit/0.5 Ml Vial) 5,000 units SQ Q12 [facility] Stop: 05/10/24 20:59 Last Admin: 04/10/24 20:43 Dose: 5,000 units Azithromycin 250 mg/ Dextrose 252.5 mls @ 125 mls/hr IV Q24H [facility] Stop: 04/16/24 16:02 Piperacillin Sod/Tazobactam Sod (Zosyn) 4.5 gm in 100 mls @ 25 mls/hr IV Q8H [facility]; Protocol Stop: 04/17/24 21:59 Last Infusion: 04/11/24 02:33 Dose: Infused Vancomycin HCl 750 mg/ Sodium (Chloride) 265 mls @ 200 mls/hr IV Q12H [facility] Stop: 04/18/24 04:59 Norepinephrine Bitartrate (Levophed/D5w) 4 mg in 250 mls @ 14.438 mls/hr IV .[id number] [facility]; Protocol Stop: 05/11/24 02:58 Last Admin: 04/11/24 03:12 Dose: 0.05 mcg/kg/min, 14.4 mls/hr Lactated Ringer's (Lr) 1,000 mls @ 115 mls/hr IV .Q8H42M [facility] Stop: 05/11/24 02:59 Last Admin: 04/11/24 03:12 Dose: 115 mls/hr Levothyroxine Sodium (Levothyroxine Sodium 175 Mcg Tablet) 175 mcg PO DAILYBB [facility] Stop: 05/11/24 06:29 Linaclotide (Linaclotide 145 Mcg Capsule) 145 mcg PO DAILY [facility] Stop: 05/11/24 01:04 Last Admin: 04/11/24 01:32 Dose: 145 mcg Magnesium Hydroxide (Magnesium Hydroxide Susp 30 Ml Udc) 30 ml PO Q8H [facility] Stop: 05/10/24 16:29 Last Admin: 04/11/24 00:46 Dose: 30 ml Miscellaneous (Icu Protocol For Hyperglycemia) 1 each N/A ACHS [facility] Stop: 04/13/24 07:29 Miscellaneous Information (Vancomycin Consult Active) 1 each N/A UD PRN PRN Reason: Consult Stop: 05/10/24 16:06 Olanzapine (Olanzapine 5 Mg Tablet) 15 mg PO HS [facility] Stop: 05/10/24 20:59 Last Admin: 04/10/24 20:30 Dose: 15 mg Ondansetron HCl (Ondansetron Inj 2 Mg/Ml 2 Ml Vial) 4 mg IV Q4H PRN PRN Reason: Nausea And Vomiting Stop: 05/10/24 16:06 Pantoprazole Sodium (Pantoprazole 40 Mg Tab) 40 mg PO BID [facility] Stop: 05/10/24 20:59 Last Admin: 04/10/24 20:29 Dose: 40 mg Polyethylene Glycol (Polyethylene (Miralax) 17 Gm Pack) 17 gm PO BID [facility] Stop: 05/10/24 20:59 Last Admin: 04/10/24 20:44 Dose: 17 gm Rosuvastatin Calcium (Rosuvastatin Calcium 10 Mg Tab) 10 mg PO DAILY [facility] Stop: 05/11/24 08:59 Sodium Chloride (Sodium Chlor 7% 4 Ml Neb) 4 ml NEB BIDR [facility] Stop: 05/10/24 18:59 Last Admin: 04/10/24 20:02 Dose: 4 ml Coding Level of Care Code 92355 CRITICAL CARE 1ST 30-74M Diagnoses Shock R57.9 Stercoral colitis K52.89 Fecal impaction K56.41 Hypoxia R09.02 Schizoaffective disorder F25.9 Electrolyte disturbance E87.8 Multifocal pneumonia J18.9
[2024-04-11 04:20] LABS: BUN Creatinine Ratio 22.3 (10-20); Calcium 9.1 mg/dl (8.6-10.3); Creatinine Clr Calc Pharmacy 76.8 ml/min; Potassium 3.3 mmol/L (3.5-5.1)
[2024-04-11 04:34] LABS: Hematocrit (blood only) 30.6 % (42.0-52.0); Hemoglobin 9.9 g/dl (14.0-18.0); Mean Corpuscular Hgb Conc 32.4 g/dL (32.0-36.0); Mean Corpuscular Volume 92.7 fL (80.0-100.0); Mean Platelet Volume 12.7 fL (9.4-12.4); Platelet Count 167 K/uL (130-400); RDW Coefficient of Variation 16.1 % (11.5-14.5); White Blood Count 10.24 K/ul (4.8-10.8)
[2024-04-11] MEDS: VANCOMYCIN HCL 750 MG in SODIUM CHLORIDE 0.9% 250 ML IV SCH (05:23)
[2024-04-11 05:51] LABS: Basophils # (auto) 0.05 K/uL (0.00-0.20); Basophils % (auto) 0.5 %; Eosinophils # (auto) 0.03 K/uL (0.00-0.50); Eosinophils % (auto) 0.3 %; Immature Granulocytes # (auto) 0.11 K/uL (0.01-0.20); Immature Granulocytes % (auto) 1.1 %; Lymphocytes # (auto) 0.52 K/uL (1.20-3.40); Lymphocytes % (auto) 5.1 %; Monocytes # (auto) 0.52 K/uL (0.11-0.59); Monocytes % (auto) 5.1 %; Neutrophils # (auto) 8.97 K/uL (1.40-6.50); Neutrophils % (auto) 87.9 %; Toxic Vacuolation 1+
[2024-04-11] MEDS: LEVOTHYROXINE SODIUM 175 MCG TABLET PO SCH (06:06)
--- NOTE | 2024-04-11 06:46 | CT Scan Report ---
Exam(s): CTA ABDOMEN + PELVIS With Contrast IV Amt: 118 ml opti 320 EXAM: CT Angiography Abdomen and Pelvis With Intravenous Contrast CLINICAL HISTORY: Evaluate for ischemic bowel and measure colon size. TECHNIQUE: Axial computed tomographic angiography images of the abdomen and pelvis with intravenous contrast. CTDI is 26.12 mGy and DLP is 973.94 mGy-cm. Automated exposure control was utilized for the study. A dose lowering technique was utilized adhering to the principles of ALARA. MIP reconstructed images were created and reviewed. CONTRAST: Patient received 118 ml opti 320 of IV contrast COMPARISON: No relevant prior studies available. FINDINGS: VASCULATURE: Aorta: Mild atherosclerosis of the aorta. No abdominal aortic aneurysm. No dissection. Celiac trunk and mesenteric arteries: There is mild atherosclerosis of the origin of the celiac trunk, SMA and MARÍA ELENA without significant stenosis. Renal arteries: There is atherosclerosis of the origin of both renal arteries without significant stenosis. Iliac arteries: There is atherosclerosis of the bilateral common, internal and external iliac arteries without significant stenosis. 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 The remaining mesenteric arteries are patent. Lung bases: See below. Pleural space: Small bilateral pleural effusions with bibasilar airspace opacities concerning for multifocal pneumonia and/or aspiration. Mediastinum: Small hiatal hernia. ABDOMEN: Liver: Unremarkable. No mass. Gallbladder and bile ducts: Unremarkable. No calcified stones. No ductal dilation. Pancreas: Unremarkable. No ductal dilation. No mass. Spleen: Unremarkable. No splenomegaly. Adrenals: Unremarkable. No mass. Kidneys and ureters: Unremarkable. No hydronephrosis. No solid mass. Stomach and bowel: There is marked distention of the colon with significant stool in the rectal there is thickening of the wall of the rectosigmoid colon. Fluid-filled distended small bowel without definitive evidence of obstruction. PELVIS: Appendix: Normal appendix. Bladder: A Dumont catheter is present. Reproductive: Unremarkable as visualized. ABDOMEN and PELVIS: Intraperitoneal space: Unremarkable. No significant fluid collection. No free air. Bones/joints: There are degenerative changes of the spine. No acute fracture. No dislocation. Soft tissues: Unremarkable. Lymph nodes: Unremarkable. No enlarged lymph nodes. IMPRESSION: 1. 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 The remaining mesenteric arteries are patent. 2. There is marked distention of the colon with significant stool in the rectal there is thickening of the wall of the rectosigmoid colon. This is concerning for nonspecific colitis, stercoral colitis to be included on the differential. The rectosigmoid colon measures 10 cm in diameter. 3. Small bilateral pleural effusions with bibasilar airspace opacities concerning for multifocal pneumonia and/or aspiration. 4. Fluid-filled distended small bowel without definitive evidence of obstruction. 5. Small hiatal hernia. Communications: Verify Receipt Electronically signed by: Valerie Lu MD 04/11/24 06:44 AM
[2024-04-11] MEDS: ICU Protocol for HYPERglycemia SCH (07:47)
[2024-04-11] MEDS ORDERED: MIDODRINE HCL 2.5 MG TAB PO SCH (08:00)
[2024-04-11] MEDS: MAGNESIUM SULFATE / D5W 1 GM/100 ML BAG IV ONE (08:10)
[2024-04-11] MEDS: POTASSIUM CHLORIDE / WTR 10 MEQ/100 ML PLCT IV SCH (08:10)
[2024-04-11] MEDS: ROSUVASTATIN CALCIUM 10 MG TAB PO SCH (08:12)
[2024-04-11] MEDS: FLUTICASONE FUROATE 100MCG 14 PUFFS/INHALER INH SCH (08:14)
[2024-04-11] MEDS ORDERED: POLYETHYLENE (MIRALAX) 17 GM PACK PO SCH (09:00)
[2024-04-11] MEDS ORDERED: CHOLECALCIFEROL 25 MCG (1000 UNITS) TAB PO SCH (09:00)
--- NOTE | 2024-04-11 09:28 | Surgery Consultation ---
Date of Consultation April 11, 2024 Assessment & Plan (1) Stercoral colitis: This is a 68yM prisoner with a PMH of schizoaffective disorder, hypothyroidism who presented to the [facility] ED on 04/10/24 with altered mental status found to be hypotensive and hypoxic on admission. He was found to have imaging performed concerning for pneumonia. Upon further workup he underwent a CT a/p which showed rectosigmoid fecal reaction and moderate to severe constipation with diffuse colonic distention, with nonspecific proctocolitis, likely stercoral. It also mentions nonspecific findings of pneumatosis intestinalis of the L colon. He was admitted and started on IV abx. During his stay he ultimately became hypotensive requiring transfer to the ICU for blood pressure support, which is now weaned off. He underwent repeat imaging, this time with a CTA a/p that showed marked focal near-complete occlusion of the proximal SMA, with marked distention of the colon with significant stool in the rectal there is thickening of the wall of the rectosigmoid colon. The rectosigmoid colon measures 10 cm. The patient tells me that he has no abdominal pain or recent emesis. But he says the inhalers are helping his breathing and he states he had some flatus. Lab data this AM shows WBC 10, Hbg 9.9, K 3.3, Cr 1, and lactate 2.4 (down from 3.5 on admission). Vitals currently show SBPs 90-120s (currently off pressors), afebrile with HRs 90-100s, on 2 L supplemental O2. On exam patient is resting and in no acute distress. His abdomen is soft, mildly distended, without any tenderness to palpation. I have been given report that manual disimpaction was performed rectally and able to remove some stool. At this time as vitals and lactate improving and patient's abdomen is soft/non tender I believe we can continue with close monitoring and supportive care. Continue IVF resuscitation, IV abx for both respiratory and pulmonary sources, and aggressive bowel regimen to try to manage his stool burden. Would also consider heparin gtt for his nearly occluded SMA. We will follow along closely, please inform us with any changes or deterioration in patient's status. (2) Fecal impaction: History of Present Illness Attending Physician: Markos Lindquist MD History of Present Illness This is a 68yM prisoner with a PMH of schizoaffective disorder, hypothyroidism who presented to the [facility] ED on 04/10/24 with altered mental status found to be hypotensive and hypoxic on admission. Upon further workup he underwent a CT a/p which showed rectosigmoid fecal reaction and moderate to severe constipation wi th diffuse colonic distention, with nonspecific proctocolitis, likely stercoral, it also mentions nonspecific findings of pneumatosis intestinalis of the L colon. He was also found to have evidence of pneumonia. He was admitted and started on IV abx. During his stay he ultimately became hypotensive requiring transfer to the ICU for blood pressure support, which is now weaned off. He underwent repeat imaging, this time with a CTA a/p that showed marked focal near-complete occlusion of the proximal SMA, with marked distention of the colon with significant stool in the rectal there is thickening of the wall of the rectosigmoid colon. The rectosigmoid colon measures 10 cm. The patient tells me that he has no abdominal pain or recent emesis. But he says the inhalers are helping his breathing and he states he had some flatus. Allergies Allergy/AdvReac Type Severity Reaction Status Date / Time No Known Allergies Allergy Verified 04/10/24 16:36 Home Medications Medication Instructions Recorded Confirmed Type albuterol 90 mcg/actuation aerosol 90 mcg inhalation Q4H PRN 04/10/24 04/10/24 History inhaler Shortness Of Breath aspirin 81 mg capsule 81 mg PO DAILY 04/10/24 04/10/24 History brimonidine 0.2 % eye drops 1 drp ophthalmic (eye) TID 04/10/24 04/10/24 History calcium polycarbophil 625 mg 1,250 mg PO BID 04/10/24 04/10/24 History tablet (FiberCon) carbamazepine 200 mg tablet 200 mg PO BID 04/10/24 04/10/24 History cholecalciferol (vitamin D3) 25 25 mcg PO DAILY 04/10/24 04/10/24 History mcg (1,000 unit) tablet ciclesonide 80 mcg/actuation 1 puff inhalation Q12H 04/10/24 04/10/24 History aerosol inhaler (Alvesco) levetiracetam 500 mg tablet 500 mg PO BID 04/10/24 04/10/24 History levothyroxine 175 mcg tablet 175 mcg PO DAILY 04/10/24 04/10/24 History linaclotide 145 mcg capsule 145 mcg PO DAILY 04/10/24 04/10/24 History (Linzess) olanzapine 15 mg tablet 15 mg PO HS 04/10/24 04/10/24 History omeprazole 40 mg capsule,delayed 40 mg PO BID 04/10/24 04/10/24 History release rosuvastatin 10 mg tablet 10 mg PO DAILY 04/10/24 04/10/24 History Patient History Medical History Chronic constipation GERD (gastroesophageal reflux disease) HLD (hyperlipidemia) COPD (chronic obstructive pulmonary disease) Social History Smoking Status: Former smoker Hx Alcohol Use: No Hx Substance Use: No Preferred Language: Divehi Communication Ability: Unable 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: No Beliefs That Will Affect Care: None Current Living Situation: Other Current Living Situation Comment: [facility] Other Information That Helps Us Care for You: No Assistive Devices: None Review of Systems Constitutional: + malaise; no fever and no chills Respiratory: no dyspnea Gastrointestinal: + vomiting (prior to admission) and + co nstipation; no abdominal pain Physical Exam Physical Exam: resting in bed, communicative, maybe mildly confused Respiratory: on supplemental O2 Gastrointestinal (Abdomen): Inspection/Auscultation: + abdomen distended (mild) Percussion/Palpation: abdomen soft; abdomen nontender Results & Data Vital Signs (Past 12 Hours) Vital Signs Temp Pulse Pulse Pulse Resp BP BP 04/11/24 07:14 100 H 18 04/11/24 06:30 103 H 30 H 102/70 04/11/24 06:15 102 H 121/71 04/11/24 06:00 100 H 20 110/70 04/11/24 05:30 105 H 115/39 L 04/11/24 05:15 94 H 130/75 04/11/24 05:00 97.7 F 92 H 18 102/66 04/11/24 04:45 93 H 97/62 L 04/11/24 04:15 99 H 26 H 108/69 04/11/24 04:11 04/11/24 04:00 99 H 26 H 110/70 04/11/24 04:00 99 H 27 H 112/69 04/11/24 03:40 97 H 27 H 112/71 04/11/24 03:15 93 H 25 H 105/65 04/11/24 03:00 97.7 F 93 H 30 H 110/70 04/11/24 02:59 92 H 04/11/24 02:32 04/11/24 01:48 04/11/24 00:51 04/11/24 00:44 04/11/24 00:12 04/10/24 23:55 88 04/10/24 23:39 98.2 F 87 18 04/10/24 22:23 BP Pulse Ox O2 Del Method O2 Flow Rate 04/11/24 07:14 96 Nasal Cannula 2 04/11/24 06:30 95 Nasal Cannula 2 04/11/24 06:15 04/11/24 06:00 94 Oxymask 2 04/11/24 05:30 04/11/24 05:15 04/11/24 05:00 92 Oxymask 2 04/11/24 04:45 04/11/24 04:15 92 Oxymask 2 04/11/24 04:11 Oxymask 04/11/24 04:00 91 Oxymask 2 04/11/24 04:00 92 Oxymask 2 04/11/24 03:40 96 Oxymask 5 04/11/24 03:15 97 Oxymask 6 04/11/24 03:00 96 Nasal Cannula 6 04/11/24 02:59 04/11/24 02:32 75/54 L 04/11/24 01:48 95/58 L 04/11/24 00:51 85/56 L 04/11/24 00:44 79/50 L 04/11/24 00:12 Oxymask 6 04/10/24 23:55 04/10/24 23:39 81/53 L 99 Oxymask 9 04/10/24 22:23 88/[address] SCAN OF THE ABDOMEN AND PELVIS WITHOUT IV CONTRAST CLINICAL HISTORY: Sepsis. COMPARISON STUDY: No priors. TECHNIQUE: CT scan of the abdomen and pelvis is performed from the lung bases to the proximal femora. Images are reviewed in the axial, sagittal, and coronal planes. IV contrast was not administered for this examination as per the referring clinician. Note that the examination was performed in significantly suboptimal fashion without oral and IV contrast. A dose lowering technique was utilized adhering to the principles of ALARA. CT DOSE: 580.3 mGy.cm FINDINGS: Lung bases: The heart is mildly enlarged noting a small to moderate pericardial effusion. The coronary arteries are densely calcified. There is diminished atten uation of the cardiac blood pool as compared to the myocardium suggesting anemia. Emphysema is noted. Multiple airspace consolidation is seen at the lung bases. There are trace pleural effusions. A small hiatal hernia is noted. Liver: The unenhanced liver is normal in size, contour, and attenuation. There is no intrahepatic biliary ductal dilatation. Gallbladder: There are calcified gallstones with no CT evidence of acute cholecystitis. Spleen: Normal in size and attenuation. Pancreas: The unenhanced pancreas is mildly atrophic and grossly unremarkable. Adrenal glands: Unremarkable. Kidneys: The unenhanced kidneys are normal in size and without hydronephrosis. There are no renal calculi identified. There is no evidence of contour deforming renal mass lesion. Abdominal vasculature: The abdominal aorta is normal in course and caliber noting advanced atherosclerotic calcification. Bowel: There is rectosigmoid fecal impaction and moderate to severe constipation. The rectal wall is thickened with surrounding infiltration. The rectum measures up to 10.7 cm in diameter. There is nonspecific pneumatosis intestinalis seen involving the left colon, greatest involving the splenic flex ure and proximal descending colon. The small bowel loops are normal in caliber. The appendix is normal as visualized. Peritoneum: No intraperitoneal free air is clearly seen. There is no abdominal a scites. A fat-containing umbilical hernia is noted. Lymphadenopathy: None. Pelvic viscera: The bladder is decompressed around a Dumont catheter and not well assessed. The prostate gland is mildly enlarged. Skeletal structures: The skeletal structures are osteopenic. There is moderate lumbosacral spondylosis. No lytic or blastic lesions are seen. IMPRESSION: 1. Significant suboptimal examination without oral and IV contrast. 2. There is rectosigmoid fecal reaction and moderate to severe constipation with diffuse colonic distention. 3. There is evidence of a nonspecific proctocolitis, likely stercoral. 4. There is nonspecific pneumatosis intestinalis of left colon as detailed above, which may be related to stercoral proctocolitis. This could also potentially be seen in the setting of bowel ischemia. Clinical correlation will be essential. 5. The small bowel loops normal caliber with no evidence of high-grade obstruction. 6. Cardiomegaly and emphysema. 7. Cholelithiasis. 8. Additional findings as above. ACT 112: Negative or not required by law. Electronically signed by: Haresh Milligan M.D. 04/10/2024 3:56 PM ADDENDUM ADDENDUM: 04/11/24 06:50 Verify Receipt Verified receipt with YAAKOV Sotelo on 04/11 06:49 (-04:00) Electronically signed by: Valerie Lu MD Electronically signed by: Valerie Lu MD 04/11/24 06:44 AM ADDENDUM END Exam(s): CTA ABDOMEN + PELVIS With Contrast IV Amt: 118 ml opti 320 EXAM: CT Angiography Abdomen and Pelvis With Intravenous Contrast CLINICAL HISTORY: Evaluate for ischemic bowel and measure colon size. TECHNIQUE: Axial computed tomographic angiography images of the abdomen and pelvis with intravenous contrast. CTDI is 26.12 mGy and DLP is 973.94 mGy-cm. Automated exposure control was utilized for the study. A dose lowering technique was utilized adhering to the principles of ALARA. MIP reconstructed images were created and reviewed. CONTRAST: Patient received 118 ml opti 320 of IV contrast COMPARISON: No relevant prior studies available. FINDINGS: VASCULATURE: Aorta: Mild atherosclerosis of the aorta. No abdominal aortic aneurysm. No dissection. Celiac trunk and mesenteric arteries: There is mild atherosclerosis of the origin of the celiac trunk, SMA and MARÍA ELENA without significant stenosis. Renal arteries: There is atherosclerosis of the origin of both renal arteries without significant stenosis. Iliac arteries: There is atherosclerosis of the bilateral common, internal and external iliac arteries without significant stenosis. 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 The remaining mesenteric arteries are patent. Lung bases: See below. Pleural space: Small bilateral pleural effusions with bibasilar airspace opacities concerning for multifocal pneumonia and/or aspiration. Mediastinum: Small hiatal hernia. ABDOMEN: Liver: Unremarkable. No mass. Gallbladder and bile ducts: Unremarkable. No calcified stones. No ductal dilation. Pancreas: Unremarkable. No ductal dilation. No mass. Spleen: Unremarkable. No splenomegaly. Adrenals: Unremarkable. No mass. Kidneys and ureters: Unremarkable. No hydronephrosis. No solid mass. Stomach and bowel: There is marked distention of the colon with significant stool in the rectal there is thickening of the wall of the rectosigmoid colon. Fluid-filled distended small bowel without definitive evidence of obstruction. PELVIS: Appendix: Normal appendix. Bladder: A Dumont catheter is present. Reproductive: Unremarkable as visualized. ABDOMEN and PELVIS: Intraperitoneal space: Unremarkable. No significant fluid collection. No free air. Bones/joints: There are degenerative changes of the spine. No acute fracture. No dislocation. Soft tissues: Unremarkable. Lymph nodes: Unremarkable. No enlarged lymph nodes. IMPRESSION: 1. 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 The remaining mesenteric arteries are patent. 2. There is marked distention of the colon with significant stool in the rectal there is thickening of the wall of the rectosigmoid colon. This is concerning for nonspecific colitis, stercoral colitis to be included on the differential. The rectosigmoid colon measures 10 cm in diameter. 3. Small bilateral pleural effusions with bibasilar airspace opacities concerning for multifocal pneumonia and/or aspiration. 4. Fluid-filled distended small bowel without definitive evidence of obstruction. 5. Small hiatal hernia. Communications: Verify Receipt Electronically signed by: Valerie Lu MD 04/11/24 06:44 AM PG Care Time/CCT Total # of Minutes Spent Total Time Spent with Patient: Total time spent is greater than 50% in coordination of care (as documented) at patient's floor/unit and/or counseling patient: Coding Level of Care Code 96891 IN/OBS CONSULT LVL 4,60M Diagnoses Stercoral colitis K52.89 Fecal impaction K56.41
[2024-04-11] MEDS ORDERED: Heparin IV Adult Wt-Based Standard *NO* INITIAL Bolus Protocol IV SCH (09:38)
[2024-04-11] MEDS: HEPARIN SODIUM/DEXTROSE 25,000 UNITS/500 ML BAG IV SCH (10:45)
[2024-04-11] MEDS: levETIRAcetam 500 MG TAB PO SCH (10:46)
[2024-04-11] MEDS: ASPIRIN 81 MG ECTAB PO SCH (10:46)
--- NOTE | 2024-04-11 11:16 | Consultation ---
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 MARÍA ELENA widely patent. Pt with severe fecal impaction. No indications for vascular surgical intervention at this time. If required, would need transfer to tertiary center for a [id number] bypass. Left sided colon surgery will place pt at risk of complications d/t MARÍA ELENA being only patent mesenteric artery and should also be performed at tertiary center. Please call if needed. History of Present Illness Reason for Consultation: mesenteric steosis Attending Physician: Markos Lindquist MD History of Present Illness 68 yo m with hx of hypothyroidism, HTN, IBS, hyperlipidemia, GERD, asthma, a dmitted with altered mental status, seen in consultation today for SMA and celiac art stenosis noted on CTA abd. Pt poor historian, unable to give any reliable hx. Deneis abd pain. Denies ELDER, fever, N/V, other complaints. CTA abd/pelvis demonstrates SMA and celaic art occlusions. Allergies Allergy/AdvReac Type Severity Reaction Status Date / Time No Known Allergies Allergy Verified 04/10/24 16:36 Home Medications Medication Instructions Recorded Confirmed Type albuterol 90 mcg/actuation aerosol 90 mcg inhalation Q4H PRN 04/10/24 04/10/24 History inhaler Shortness Of Breath aspirin 81 mg capsule 81 mg PO DAILY 04/10/24 04/10/24 History brimonidine 0.2 % eye drops 1 drp ophthalmic (eye) TID 04/10/24 04/10/24 History calcium polycarbophil 625 mg 1,250 mg PO BID 04/10/24 04/10/24 History tablet (FiberCon) carbamazepine 200 mg tablet 200 mg PO BID 04/10/24 04/10/24 History cholecalciferol (vitamin D3) 25 25 mcg PO DAILY 04/10/24 04/10/24 History mcg (1,000 unit) tablet ciclesonide 80 mcg/actuation 1 puff inhalation Q12H 04/10/24 04/10/24 History aerosol inhaler (Alvesco) levetiracetam 500 mg tablet 500 mg PO BID 04/10/24 04/10/24 History levothyroxine 175 mcg tablet 175 mcg PO DAILY 04/10/24 04/10/24 History linaclotide 145 mcg capsule 145 mcg PO DAILY 04/10/24 04/10/24 History (Linzess) olanzapine 15 mg tablet 15 mg PO HS 04/10/24 04/10/24 History omeprazole 40 mg capsule,delayed 40 mg PO BID 04/10/24 04/10/24 History release rosuvastatin 10 mg tablet 10 mg PO DAILY 04/10/24 04/10/24 History Patient History Medical History Chronic constipation GERD (gastroesophageal reflux disease) HLD (hyperlipidemia) COPD (chronic obstructive pulmonary disease) Social History Smoking Status: Former smoker Hx Alcohol Use: No Hx Substance Use: No Preferred Language: Moroccan Communication Ability: Unable Sales 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 Marketing Manager Required: No Beliefs That Will Affect Care: None Current Living Situation: Other Current Living Situation Comment: Assisted Other Information That Helps Us Care for You: No Assistive Devices: None Review of Systems Review of Systems: Unobtainable due to mental health condition and Unobtainable due to cognitive status Physical Exam Constitutional: cooperative and comfortable; not in distress Neck: trachea midline Respiratory: normal respiratory effort, lungs clear to auscultation Auscultation: + diminished lung sounds Cardiovascular: Rate/Rhythm: regular rate and regular rhythm Vessels: femoral pulses present, posterior tibial pulses present, dorsalis pedis pulses present and radial pulses present; + abnormal peripheral pulses Extremities: normal capillary refill; no edema Gastrointestinal (Abdomen): Inspection/Auscultation: + abdomen distended and normal bowel sounds Percussion/Palpation: + abdomen tender (generalized,mild) and + abdomen firm; + abdomen not soft Musculoskeletal: no cyanosis or clubbing, extremities motor strength 5/5 Skin: no rashes, warm and dry Neurologic: moves all extremities, awake and + confused; no focal motor deficits Psychiatric: Orientation: alert, oriented x 3 and cooperative Thought Content: + paranoid and + delusions Results & Data Vital Signs (Past 12 Hours) Vital Signs Temp Pulse Pulse Pulse Resp BP BP 04/11/24 10:23 04/11/24 08:39 96 H 26 H 103/71 04/11/24 07:30 115/69 04/11/24 07:30 99 H 24 04/11/24 07:14 100 H 18 04/11/24 07:00 104/66 04/11/24 07:00 100 H 26 H 04/11/24 06:30 102 H 19 04/11/24 06:30 102/70 04/11/24 06:30 102/70 04/11/24 06:30 103 H 30 H 102/70 04/11/24 06:15 102 H 121/71 04/11/24 06:09 101 H 22 110/70 04/11/24 06:00 100 H 20 110/70 04/11/24 05:30 105 H 115/39 L 04/11/24 05:15 94 H 130/75 04/11/24 05:00 36.5 C 92 H 18 102/66 04/11/24 04:45 93 H 97/62 L 04/11/24 04:15 99 H 26 H 108/69 04/11/24 04:11 04/11/24 04:00 99 H 26 H 110/70 04/11/24 04:00 99 H 27 H 112/69 04/11/24 03:40 97 H 27 H 112/71 04/11/24 03:15 93 H 25 H 105/65 04/11/24 03:00 36.5 C 93 H 30 H 110/70 04/11/24 02:59 92 H 04/11/24 02:32 04/11/24 01:48 04/11/24 00:51 04/11/24 00:44 04/11/24 00:12 04/10/24 23:55 88 04/10/24 23:39 36.8 C 87 18 BP Pulse Ox O2 Del Method O2 Flow Rate 04/11/24 10:23 Nasal Cannula 2 04/11/24 08:39 93 04/11/24 07:30 04/11/24 07:30 95 04/11/24 07:14 96 Nasal Cannula 2 04/11/24 07:00 04/11/24 07:00 95 04/11/24 06:30 94 04/11/24 06:30 04/11/24 06:30 04/11/24 06:30 95 Nasal Cannula 2 04/11/24 06:15 04/11/24 06:09 93 04/11/24 06:00 94 Oxymask 2 04/11/24 05:30 04/11/24 05:15 04/11/24 05:00 92 Oxymask 2 04/11/24 04:45 04/11/24 04:15 92 Oxymask 2 04/11/24 04:11 Oxymask 04/11/24 04:00 91 Oxymask 2 04/11/24 04:00 92 Oxymask 2 04/11/24 03:40 96 Oxymask 5 04/11/24 03:15 97 Oxymask 6 04/11/24 03:00 96 Nasal Cannula 6 04/11/24 02:59 04/11/24 02:32 75/54 L 04/11/24 01:48 95/58 L 04/11/24 00:51 85/56 L 04/11/24 00:44 79/50 L 04/11/24 00:12 Oxymask 6 04/10/24 23:55 04/10/24 23:39 81/53 L 99 Oxymask 9
--- NOTE | 2024-04-11 13:08 | Hospitalist Progress Note ---
Date of Service April 11, 2024 Assessment & Plan (1) Sepsis: (2) Multifocal pneumonia: (3) Lactic acidosis: (4) Schizoaffective disorder: Plan: Multifocal pneumonia Septic shock--POA Lactic acidosis Acute hypoxic respiratory failure with hypoxia --Chest CT:Cardiomegaly and emphysema. Multifocal airspace consolidation is typical for pneumonia. Clinical correlation will be required and radiographic follow-up to resolution is recommended. Trace pleural effusions. Nonspecific pneumatosis intestinalis is seen in the partially imaged left colon. Mildly enlarged mediastinal lymph nodes are nonspecific and likely reactive. --ECHO: Mild concentric LVH. Left ventricle is hyperdynamic. EF> 70%. No regional wall motion abnormality. No significant valvular pathology. Trace circumferential pericardial effusion. -- BioFire negative --Blood cultures negative to date Procalcitonin pending Nasal MRSA negative Vancomycin discontinued Levophed discontinued Continue azithromycin, Zosyn Continue IV fluids, nebs Appreciate critical care input Fecal retention Stercoral colitis Pneumatosis intestinalis of left colon ? Obstipation --CT ABD:There is rectosigmoid fecal reaction and moderate to severe constipation with diffuse colonic distention. There is evidence of a nonspecific proctocolitis, likely stercoral. There is nonspecific pneumatosis intestinalis of left colon as detailed above, which may be related to stercoral proctocolitis. This could also potentially be seen in the setting of bowel ischemia. Clinical correlation will be essential. The small bowel loops normal caliber with no evidence of high-grade obstruction. --S/P manual disimpaction on 04/11/2024 --Lactic acidosis improving -- Continue IV fluids --Appreciate surgery input Continue bowel regimen Superior mesenteric artery occlusion --ABD CTA:Marked focal near-complete occlusion of the proximal superficial mesenteric artery. The remaining mesenteric arteries are patent. -- Continue aspirin, statin Also started on IV heparin Surgery on board No surgical intervention needed currently as per vascular surgery Acute kidney injury Likely multifactorial secondary to dehydration, septic shock Cr improved with IV fluids Monitor renal function Avoid nephrotoxic agents as able Hypokalemia Replete electrolytes as needed Monitor Schizoaffective disorder Follow-up Tegretol levels - Continue on Zyprexa, Tegretol Seizure disorder -Continue Keppra and carbamazepine Chronic constipation ? IBS on Linzess Continue Linzess Also started on bowel regimen COPD -Continue home inhalers Peripheral vascular disease Hyperlipidemia -Chronic, stable continue home meds Hypothyroidism Elevated TSH, normal free T4 -Continue levothyroxine Will need repeat thyroid function test as outpatient GERD -Continue home PPI Glaucoma -patient reports that he is legally blind, assist with ambulation DVT Px: IV Heparin for now CODE STATUS Full code Admission and Anticipated Discharge Date Admission Date: April 10, 2024 Subjective Patient is seen and examined at bedside Admits to have intermittent cough Had bowel movement this morning per staff Patient denies any dyspnea, chest pain, abdominal pain, nausea, vomiting Was disimpacted overnight Guards at bedside Review of Systems Review of Systems: All systems reviewed & are unremarkable except as noted in Subjective Physical Exam Physical Exam: Physical Exam: Vitals signs as noted above General Appearance:Thin, Frail, Chronic ill appearing, no apparent distress Head: normocephalic, Atraumatic Eyes: normal inspection, EOMI Neck: supple, Trachea midline Respiratory/Chest: Decreased breath sounds, scattered crackles, No accessory muscle use Cardiovascular: S1, S2, No murmur Abdomen/GI:Soft, Non tender, mildly distended, bowel sounds present Extremities/Musculoskeletal:normal inspection, no edema Neurologic/Psych:AAOX3, grossly no focal neurological deficits Skin: normal color, warm Results & Data Results & Data Vital Signs (Past 12 Hours) Vital Signs Temp Pulse Pulse Resp BP BP BP 04/11/24 12:11 36.8 C 04/11/24 11:06 99 H 32 H 112/69 04/11/24 10:30 94/61 L 04/11/24 10:23 04/11/24 10:00 91 H 27 H 95/71 L 04/11/24 09:30 95/64 L 04/11/24 08:39 96 H 26 H 103/71 04/11/24 07:30 115/69 04/11/24 07:30 99 H 24 04/11/24 07:14 100 H 18 04/11/24 07:00 104/66 04/11/24 07:00 100 H 26 H 04/11/24 06:30 102 H 19 04/11/24 06:30 102/70 04/11/24 06:30 102/70 04/11/24 06:30 103 H 30 H 102/70 04/11/24 06:15 102 H 121/71 04/11/24 06:09 101 H 22 110/70 04/11/24 06:00 100 H 20 110/70 04/11/24 05:30 105 H 115/39 L 04/11/24 05:15 94 H 130/75 04/11/24 05:00 36.5 C 92 H 18 102/66 04/11/24 04:45 93 H 97/62 L 04/11/24 04:15 99 H 26 H 108/69 04/11/24 04:11 04/11/24 04:00 99 H 26 H 110/70 04/11/24 04:00 99 H 27 H 112/69 04/11/24 03:40 97 H 27 H 112/71 04/11/24 03:15 93 H 25 H 105/65 04/11/24 03:00 36.5 C 93 H 30 H 110/70 04/11/24 02:59 92 H 04/11/24 02:32 75/54 L 04/11/24 01:48 95/58 L Pulse Ox O2 Del Method O2 Flow Rate 04/11/24 12:11 04/11/24 11:06 92 04/11/24 10:30 04/11/24 10:23 Nasal Cannula 2 04/11/24 10:00 94 04/11/24 09:30 04/11/24 08:39 93 04/11/24 07:30 04/11/24 07:30 95 04/11/24 07:14 96 Nasal Cannula 2 04/11/24 07:00 04/11/24 07:00 95 04/11/24 06:30 94 04/11/24 06:30 04/11/24 06:30 04/11/24 06:30 95 Nasal Cannula 2 04/11/24 06:15 04/11/24 06:09 93 04/11/24 06:00 94 Oxymask 2 04/11/24 05:30 04/11/24 05:15 04/11/24 05:00 92 Oxymask 2 04/11/24 04:45 04/11/24 04:15 92 Oxymask 2 04/11/24 04:11 Oxymask 04/11/24 04:00 91 Oxymask 2 04/11/24 04:00 92 Oxymask 2 04/11/24 03:40 96 Oxymask 5 04/11/24 03:15 97 Oxymask 6 04/11/24 03:00 96 Nasal Cannula 6 04/11/24 02:59 04/11/24 02:32 04/11/24 01:48 Laboratory Results Short CBC 04/11/24 Range/Units 03:42 WBC 10.24 (4.8-10.8) K/ul Hgb 9.9 L D (14.0-18.0) g/dl Hct 30.6 L (42.0-52.0) % Plt Count 167 (130-400) K/uL BMP 04/11/24 03:46 Sodium 137 Potassium 3.3 L Chloride 102 Carbon Dioxide 27 BUN 23 Creatinine 1.03 D Glucose 81 Calcium 9.1
[2024-04-11] MEDS: AZITHROMYCIN 250 MG in DEXTROSE 5% 250 ML IV SCH (14:33)
[2024-04-11 15:08] LABS: Hematocrit (blood only) 27.8 % (42.0-52.0); Hemoglobin 9.5 g/dl (14.0-18.0)
[2024-04-11] MEDS ORDERED: Nursing to Pharmacy Communication SCH (16:00)
[2024-04-11 17:56] LABS: ANTI-Xa, UFH(UnfractionatedHep 0.22 IU/ml (0.3-0.7)
[2024-04-11] MEDS: DOCUSATE SODIUM 100 MG CAP PO SCH (21:23)
[2024-04-12 01:22] LABS: ANTI-Xa, UFH(UnfractionatedHep 0.17 IU/ml (0.3-0.7)
[2024-04-12] MEDS: HEPARIN SOD (PORCINE) 1000 UNIT/ML IV ONE (02:04)
[2024-04-12 08:58] LABS: Acanthocytes 1+; Basophils # (auto) 0.08 K/uL (0.00-0.20); Basophils % (auto) 0.5 %; Dohle Bodies 1+; Eosinophils # (auto) 0.05 K/uL (0.00-0.50); Eosinophils % (auto) 0.3 %; Hematocrit (blood only) 35.9 % (42.0-52.0); Hemoglobin 11.7 g/dl (14.0-18.0); Immature Granulocytes # (auto) 0.25 K/uL (0.01-0.20); Immature Granulocytes % (auto) 1.4 %; Lymphocytes # (auto) 0.54 K/uL (1.20-3.40); Lymphocytes % (auto) 3.1 %; Mean Corpuscular Hemoglobin 29.9 pg (25.0-34.0); Mean Corpuscular Hgb Conc 32.6 g/dL (32.0-36.0); Mean Corpuscular Volume 91.8 fL (80.0-100.0); Mean Platelet Volume 12.2 fL (9.4-12.4); Monocytes # (auto) 0.57 K/uL (0.11-0.59); Monocytes % (auto) 3.2 %; Neutrophils # (auto) 16.08 K/uL (1.40-6.50); Neutrophils % (auto) 91.5 %; Platelet Count 172 K/uL (130-400); Polychromasia 1+; RDW Coefficient of Variation 16.1 % (11.5-14.5); RDW Standard Deviation 53.3 fL (36.4-46.3); Red Blood Count 3.91 M/uL (4.70-6.10); Toxic Granulation 1+; Toxic Vacuolation 2+; White Blood Count 17.57 K/ul (4.8-10.8)
[2024-04-12 09:15] LABS: Calcium 8.8 mg/dl (8.6-10.3); Magnesium 2.1 mg/dl (1.7-2.4); Potassium 3.2 mmol/L (3.5-5.1)
[2024-04-12 09:21] LABS: BUN Creatinine Ratio 20.8 (10-20); Creatinine Clr Calc Pharmacy 107.7 ml/min
[2024-04-12 09:23] LABS: ANTI-Xa, UFH(UnfractionatedHep 0.21 IU/ml (0.3-0.7)
[2024-04-12] MEDS: POTASSIUM CHLORIDE CRTAB 20 MEQ TABCR PO ONE (12:14)
--- NOTE | 2024-04-12 12:31 | Fluoroscopy Report ---
FL video swallow CLINICAL HISTORY: 68 years-old Male with assess for silent aspiration. Dysphagia TECHNIQUE: Video fluoroscopic evaluation of swallowing was performed in the AP and lateral projection s by the speech pathology staff. The patient is fed varying consistencies of barium. FLUOROSCOPY TIME: 2.21 minutes. 3,359 images. 7.72 mGy COMPARISON STUDY: None. FINDINGS: There is abnormal hyoid excursion and epiglottic deflection. Silent aspiration with thin li quid barium. Laryngeal penetration with nectar, pudding and solid consistencies. IMPRESSION: 1. Silent aspiration with thin liquid barium. Multiple consistency laryngeal penetration. 2. Please see the speech pathologist report for detailed findings and recommendations. ACT 112: Negative or not required by law. Electronically signed by: Jevon Redding M.D. 04/12/2024 12:29 PM
--- NOTE | 2024-04-12 13:26 | Hospitalist Progress Note ---
Date of Service April 12, 2024 Assessment & Plan (1) Sepsis: (2) Multifocal pneumonia: (3) Lactic acidosis: (4) Schizoaffective disorder: Plan: Multifocal pneumonia Septic shock--POA Lactic acidosis Acute hypoxic respiratory failure with hypoxia --Chest CT:Cardiomegaly and emphysema. Multifocal airspace consolidation is typical for pneumonia. Clinical correlation will be required and radiographic follow-up to resolution is recommended. Trace pleural effusions. Nonspecific pneumatosis intestinalis is seen in the partially imaged left colon. Mildly enlarged mediastinal lymph nodes are nonspecific and likely reactive. --ECHO: Mild concentric LVH. Left ventricle is hyperdynamic. EF> 70%. No regional wall motion abnormality. No significant valvular pathology. Trace circumferential pericardial effusion. --Video Swallow:Silent aspiration with thin liquid barium. Multiple consistency laryngeal penetration. -- BioFire negative --Blood cultures negative to date Procalcitonin elevated 3.1 Nasal MRSA negative Vancomycin discontinued Levophed discontinued Continue azithromycin, Zosyn Received IV fluids, nebs PRN Appreciate critical care input Persistent leukocytosis Had swallow evaluation earlier today Continue aspiration precautions Fecal retention Stercoral colitis Pneumatosis intestinalis of left colon ? Obstipation --CT ABD:There is rectosigmoid fecal reaction and moderate to severe constipation with diffuse colonic distention. There is evidence of a nonspecific proctocolitis, likely stercoral. There is nonspecific pneumatosis intestinalis of left colon as detailed above, which may be related to stercoral proctocolitis. This could also potentially be seen in the setting of bowel ischemia. Clinical correlation will be essential. The small bowel loops normal caliber with no evidence of high-grade obstruction. 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 The remaining mesenteric arteries are patent. -- Continue aspirin, statin Appreciate vascular surgery input:Discussed on 04/11/2024: Recommends long-term anticoagulation No surgical intervention needed currently as per vascular surgery --Continue IV heparin Will start on Coumadin Monitor INR Acute kidney injury Likely multifactorial secondary to dehydration, septic shock Cr improved with IV fluids Monitor renal function Avoid nephrotoxic agents as able Resolved Hypokalemia Replete electrolytes as needed Monitor Schizoaffective disorder Normal Tegretol levels - Continue on Zyprexa, Tegretol Seizure disorder -Continue Keppra and carbamazepine Chronic constipation ? IBS on Linzess Continue Linzess Also started on bowel regimen Encouraged to ambulate COPD -Continue home inhalers Peripheral vascular disease Hyperlipidemia -Chronic, stable continue home meds Hypothyroidism Elevated TSH, normal free T4 -Continue levothyroxine Will need repeat thyroid function test as outpatient GERD -Continue home PPI Glaucoma -patient reports that he is legally blind, assist with ambulation DVT Px: IV Heparin+ Coumadin CODE STATUS Full code Admission and Anticipated Discharge Date Admission Date: April 10, 2024 Subjective Patient is seen and examined at bedside States having cough with mild expectoration Had swallow evaluation earlier today Denies any abdominal pain, chest pain, dyspnea No other complaints Guards at bedside Review of Systems Review of Systems: All systems reviewed & are unremarkable except as noted in Subjective Physical Exam Physical Exam: Physical Exam: Vitals signs as noted above General Appearance:Thin, Frail, Chronic ill appearing, no apparent distress Head: normocephalic, Atraumatic Eyes: normal inspection, EOMI Neck: supple, Trachea midline Respiratory/Chest: Decreased breath sounds, scattered crackles, No accessory muscle use Cardiovascular: S1, S2, No murmur Abdomen/GI:Soft, Non tender, mildly distended, bowel sounds present Extremities/Musculoskeletal:normal inspection, no edema Neurologic/Psych:AAOX3, grossly no focal neurological deficits Skin: normal color, warm Results & Data Results & Data Vital Signs (Past 12 Hours) Vital Signs Temp Pulse Pulse Resp BP Pulse Ox O2 Del Method 04/12/24 11:13 36.5 C 89 30 H 121/78 90 Nasal Cannula 04/12/24 10:34 Nasal Cannula 04/12/24 07:48 101 H 04/12/24 07:40 93 H 20 95 Room Air 04/12/24 07:38 37.5 C 93 H 18 127/78 95 Room Air 04/12/24 03:35 37.1 C 98 H 16 126/80 89 L Nasal Cannula O2 Flow Rate 04/12/24 11:13 04/12/24 10:34 2 04/12/24 07:48 04/12/24 07:40 04/12/24 07:38 04/12/24 03:35 2 Laboratory Results Short CBC 04/11/24 04/12/24 Range/Units 14:47 08:21 WBC 17.57 H (4.8-10.8) K/ul Hgb 9.5 L 11.7 L (14.0-18.0) g/dl Hct 27.8 L 35.9 L (42.0-52.0) % Plt Count 172 (130-400) K/uL BMP 04/12/24 08:21 Sodium 134 L Potassium 3.2 L Chloride 99 Carbon Dioxide 27 BUN 16 Creatinine 0.77 Glucose 104 H Calcium 8.8
--- NOTE | 2024-04-12 14:32 | Surgery Progress Note ---
Date of Service April 12, 2024 Assessment & Plan (1) Stercoral colitis: Plan: Pt here from half-way with altered mental status workup thus far has revealed pneumonia, near total occlusion of his SMA and a dilated rectosigmoid with severe fecal retention today wbc 17 (10). vitals stable, outside of requiring supplemental O2 On IV abx for pneumonia and concern for sterocoral colitis Abdomen a bit more distended to me than yesterday, but remains soft and non ten [place]ron Apparently no BM today, will need to continue aggressive bowel regimen to help manage stool burden on iv hep gtt for SMA occlusion speech eval today revealed silent aspiration If surgery becomes warranted patient will need to be transferred out as he will require vascular surgery for revascularization as above. pt doing much better. +bm's. no pain. ro diet will sign off. call if any questions/concerns (2) Fecal impaction: Admission and Anticipated Discharge Date Admission Date: April 10, 2024 Subjective Pt resting in bed. Wakes up but a bit hard to understand when he speaks. Otherwise I can gather that he denies abdominal pain. Says "a little" when asked if he has any nausea. And no to any recent bowel movement activity. Physical Exam Physical Exam: resting, but arousable, maybe a little confused Respiratory: requiring supplemental nasal cannula Gastrointestinal (Abdomen): Inspection/Auscultation: + abdomen distended Percussion/Palpation: abdomen soft; abdomen nontender Results & Data Vital Signs (Past 12 Hours) Vital Signs Temp Pulse Pulse Resp BP Pulse Ox O2 Del Method 04/12/24 13:44 18 04/12/24 11:13 97.7 F 89 30 H 121/78 90 Nasal Cannula 04/12/24 10:34 Nasal Cannula 04/12/24 07:48 101 H 04/12/24 07:40 93 H 20 95 Room Air 04/12/24 07:38 99.5 F 93 H 18 127/78 95 Room Air 04/12/24 03:35 98.8 F 98 H 16 126/80 89 L Nasal Cannula O2 Flow Rate 04/12/24 13:44 04/12/24 11:13 04/12/24 10:34 2 04/12/24 07:48 04/12/24 07:40 04/12/24 07:38 04/12/24 03:35 2 PG Care Time/CCT Total # of Minutes Spent Total Time Spent with Patient: Total time spent is greater than 50% in coordination of care (as documented) at patient's floor/unit and/or counseling patient: Coding Level of Care Code 54681 SUB INP/OBS CARE Diagnoses Stercoral colitis K52.89 Fecal impaction K56.41
[2024-04-12 15:35] LABS: ANTI-Xa, UFH(UnfractionatedHep 0.18 IU/ml (0.3-0.7)
[2024-04-12] MEDS ORDERED: HEPARIN BOLUS IV ONE (15:43)
[2024-04-12] MEDS: HEPARIN BOLUS IV ONE (16:22)
[2024-04-12] MEDS: WARFARIN SOD 5 MG TAB PO SCH (16:23)
[2024-04-12] MEDS: POTASSIUM CHLORIDE 10 MEQ TABCR PO SCH (20:34)
[2024-04-13 05:45] LABS: BUN Creatinine Ratio 24.6 (10-20); Calcium 8.2 mg/dl (8.6-10.3); Magnesium 1.9 mg/dl (1.7-2.4); Potassium 3.2 mmol/L (3.5-5.1)
[2024-04-13 05:52] LABS: Basophils # (auto) 0.05 K/uL (0.00-0.20); Basophils % (auto) 0.4 %; Eosinophils # (auto) 0.09 K/uL (0.00-0.50); Eosinophils % (auto) 0.7 %; Hematocrit (blood only) 28.5 % (42.0-52.0); Hemoglobin 9.4 g/dl (14.0-18.0); Immature Granulocytes # (auto) 0.06 K/uL (0.01-0.20); Immature Granulocytes % (auto) 0.5 %; Lymphocytes # (auto) 0.72 K/uL (1.20-3.40); Lymphocytes % (auto) 5.5 %; Mean Corpuscular Volume 91.1 fL (80.0-100.0); Mean Platelet Volume 12.1 fL (9.4-12.4); Monocytes # (auto) 0.87 K/uL (0.11-0.59); Monocytes % (auto) 6.7 %; Neutrophils # (auto) 11.19 K/uL (1.40-6.50); Neutrophils % (auto) 86.2 %; Platelet Count 161 K/uL (130-400); RBC Morphology Unremarkable; RDW Coefficient of Variation 15.9 % (11.5-14.5); RDW Standard Deviation 51.7 fL (36.4-46.3); Red Blood Count 3.13 M/uL (4.70-6.10); White Blood Count 12.98 K/ul (4.8-10.8)
[2024-04-13 05:57] LABS: INR 1.1 (0.9-1.1); Prothrombin Time 12.1 Seconds (9.0-12.0)
--- NOTE | 2024-04-13 07:25 | XRay Report ---
XR chest 1V portable HISTORY: 68 years-old Male hypoxia acute hypoxia COMPARISON: Chest CT 04/10/2024 TECHNIQUE: AP view of the chest FINDINGS: Cardiac silhouette is upper limits of normal in size. Pulmonary emphysema. Mixed interstitial and josé luis eolar opacities are redemonstrated within a peripheral predominant distribution, mildly progressed fr om the comparison CT. No pneumothorax or large pleural effusion. Bones appear grossly intact. IMPRESSION: 1. Progressive peripheral predominant bilateral multilobar airspace opacities compatible with multifo jose pneumonia, possible viral etiology. 2. Pulmonary emphysema. 3. No pneumothorax. ACT 112: Negative or not required by law. The above report was generated using voice recognition software. It may contain grammatical, syntax o r spelling errors. Electronically signed by: Jevon Redding M.D. 04/13/2024 7:22 AM
--- NOTE | 2024-04-13 08:41 | Hospitalist Progress Note ---
Date of Service April 13, 2024 Assessment & Plan (1) Sepsis: (2) Multifocal pneumonia: (3) Lactic acidosis: (4) Schizoaffective disorder: Plan: Multifocal pneumonia Septic shock--POA Lactic acidosis Acute hypoxic respiratory failure with hypoxia --Chest CT:Cardiomegaly and emphysema. Multifocal airspace consolidation is typical for pneumonia. Clinical correlation will be required and radiographic follow-up to resolution is recommended. Trace pleural effusions. Nonspecific pneumatosis intestinalis is seen in the partially imaged left colon. Mildly enlarged mediastinal lymph nodes are nonspecific and likely reactive. --ECHO: Mild concentric LVH. Left ventricle is hyperdynamic. EF> 70%. No regional wall motion abnormality. No significant valvular pathology. Trace circumferential pericardial effusion. --Video Swallow:Silent aspiration with thin liquid barium. Multiple consistency laryngeal penetration. -- BioFire negative --Blood cultures negative to date Procalcitonin elevated 3.1 Nasal MRSA negative Vancomycin discontinued Levophed discontinued Continue azithromycin, Zosyn Received IV fluids, nebs PRN Appreciate critical care input Leukocytosis improved Had swallow evaluation on 04/12 Continue aspiration precautions Fecal retention Stercoral colitis Pneumatosis intestinalis of left colon ? Obstipation --CT ABD:There is rectosigmoid fecal reaction and moderate to severe constipation with diffuse colonic distention. There is evidence of a nonspecific proctocolitis, likely stercoral. There is nonspecific pneumatosis intestinalis of left colon as detailed above, which may be related to stercoral proctocolitis. This could also potentially be seen in the setting of bowel ischemia. Clinical correlation will be essential. The small bowel loops normal caliber with no evidence of high-grade obstruction. 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 The remaining mesenteric arteries are patent. -- Continue aspirin, statin Appreciate vascular surgery input:Discussed on 04/11/2024: Recommends long-term anticoagulation No surgical intervention needed currently as per vascular surgery --Continue IV heparin Started on Coumadin Monitor INR Acute kidney injury Likely multifactorial secondary to dehydration, septic shock Cr improved with IV fluids Monitor renal function Avoid nephrotoxic agents as able Resolved Hypokalemia Replete electrolytes as needed Monitor Schizoaffective disorder Normal Tegretol levels - Continue on Zyprexa, Tegretol Seizure disorder -Continue Keppra and carbamazepine Chronic constipation ? IBS on Linzess Continue Linzess Also started on bowel regimen Encouraged to ambulate COPD -Continue home inhalers Peripheral vascular disease Hyperlipidemia -Chronic, stable continue home meds Hypothyroidism Elevated TSH, normal free T4 -Continue levothyroxine Will need repeat thyroid function test as outpatient GERD -Continue home PPI Glaucoma -patient reports that he is legally blind, assist with ambulation DVT Px: IV Heparin+ Coumadin CODE STATUS Full code Admission and Anticipated Discharge Date Admission Date: April 10, 2024 Subjective Patient seen in follow up of pneumonia, stercoral colitis + cough with some sputum Had swallow evaluation yesterday Denies any abdominal pain, chest pain, dyspnea Still on suppl. O2 No other complaints Guards at bedside Discussed w/ RN, pt having liquid stool, also BP on lower side in the afternoon - IVF bolus given and BP improved Review of Systems Review of Systems: All systems reviewed & are unremarkable except as noted in Subjective Physical Exam Physical Exam: General Appearance:Thin, Frail, Chronically ill appearing, no apparent distress Head: normocephalic, Atraumatic Eyes: normal inspection Neck: supple Respiratory/Chest: Decreased breath sounds, scattered crackles, No accessory muscle use Cardiovascular: S1, S2, No murmur Abdomen/GI:Soft, Non tender, mildly distended, bowel sounds present Extremities/Musculoskeletal:normal inspection, no edema Neurologic/Psych:AAOX3, grossly no focal neurological deficits Skin: warm, dry Results & Data Results & Data Vital Signs (Past 12 Hours) Vital Signs Temp Pulse Pulse Pulse Resp BP Pulse Ox 04/13/24 07:55 37.4 C 98 H 20 154/85 H 91 04/13/24 07:11 91 H 17 89 L 04/13/24 07:00 87 04/13/24 03:07 36.6 C 93 H 18 144/80 H 92 04/12/24 23:59 37.0 C 86 18 119/74 91 04/12/24 22:35 87 04/12/24 21:47 O2 Del Method O2 Flow Rate 04/13/24 07:55 Nasal Cannula 3.0 04/13/24 07:11 Nasal Cannula 3 04/13/24 07:00 04/13/24 03:07 Nasal Cannula 2 04/12/24 23:59 Nasal Cannula 2 04/12/24 22:35 04/12/24 21:47 Nasal Cannula 2 Laboratory Results 04/13/24 04/12/24 04/12/24 Range/Units 04:53 20:20 14:31 WBC 12.98 H (4.8-10.8) K/ul RBC 3.13 L (4.70-6.10) M/uL Hgb 9.4 L (14.0-18.0) g/dl Hct 28.5 L (42.0-52.0) % MCV 91.1 (80.0-100.0) fL MCH 30.0 (25.0-34.0) pg MCHC 33.0 (32.0-36.0) g/dL RDW Std Deviation 51.7 H (36.4-46.3) fL RDW Coeff of Yadira 15.9 H (11.5-14.5) % Plt Count 161 (130-400) K/uL MPV 12.1 (9.4-12.4) fL Immature Gran % (Auto) 0.5 % Neut % (Auto) 86.2 % Lymph % (Auto) 5.5 % [place] % (Auto) 6.7 % Eos % (Auto) 0.7 % Baso % (Auto) 0.4 % Neut # (Auto) 11.19 H (1.40-6.50) K/uL Lymph # (Auto) 0.72 L (1.20-3.40) K/uL [place] # (Auto) 0.87 H (0.11-0.59) K/uL Eos # (Auto) 0.09 (0.00-0.50) K/uL Baso # (Auto) 0.05 (0.00-0.20) K/uL Immature Gran # (Auto) 0.06 (0.01-0.20) K/uL Toxic Granulation Toxic Vacuolation Dohle Bodies RBC Morphology Unremarkable Polychromasia Acanthocytes (Spur) PT 12.1 H (9.0-12.0) Seconds INR 1.1 (0.9-1.1) Heparin Anti-Xa, LM Wt Cancelled Heparin Anti-Xa, Unfract 0.20 L 0.30 0.18 L (0.3-0.7) IU/ml Sodium 134 L (136-145) mmol/L Potassium 3.2 L (3.5-5.1) mmol/L Chloride 101 (98-107) mmol/L Carbon Dioxide 27 (21-32) mmol/L Anion Gap 6 (3-11) BUN 15 (6-23) mg/dl Creatinine 0.61 (0.6-1.4) mg/dl Est Cr Clr Drug Dosing 136.0 ml/min eGFR 105.93 BUN/Creatinine Ratio 24.6 H (10-20) Glucose 94 (70-99(Fasting)) mg/dl Calcium 8.2 L (8.6-10.3) mg/dl Magnesium 1.9 (1.7-2.4) mg/dl Procalcitonin (0-0.5) ng/ml Carbamazepine (4.0-12.0) mg/L 04/12/24 04/10/24 Range/Units 08:21 21:19 WBC 17.57 H (4.8-10.8) K/ul RBC 3.91 L (4.70-6.10) M/uL Hgb 11.7 L (14.0-18.0) g/dl Hct 35.9 L (42.0-52.0) % MCV 91.8 (80.0-100.0) fL MCH 29.9 (25.0-34.0) pg MCHC 32.6 (32.0-36.0) g/dL RDW Std Deviation 53.3 H (36.4-46.3) fL RDW Coeff of Yadira 16.1 H (11.5-14.5) % Plt Count 172 (130-400) K/uL MPV 12.2 (9.4-12.4) fL Immature Gran % (Auto) 1.4 % Neut % (Auto) 91.5 % Lymph % (Auto) 3.1 % [place] % (Auto) 3.2 % Eos % (Auto) 0.3 % Baso % (Auto) 0.5 % Neut # (Auto) 16.08 H (1.40-6.50) K/uL Lymph # (Auto) 0.54 L (1.20-3.40) K/uL [place] # (Auto) 0.57 (0.11-0.59) K/uL Eos # (Auto) 0.05 (0.00-0.50) K/uL Baso # (Auto) 0.08 (0.00-0.20) K/uL Immature Gran # (Auto) 0.25 H (0.01-0.20) K/uL Toxic Granulation 1+ Toxic Vacuolation 2+ Dohle Bodies 1+ RBC Morphology Polychromasia 1+ Acanthocytes (Spur) 1+ PT (9.0-12.0) Seconds INR (0.9-1.1) Heparin Anti-Xa, LM Wt Heparin Anti-Xa, Unfract 0.21 L (0.3-0.7) IU/ml Sodium 134 L (136-145) mmol/L Potassium 3.2 L (3.5-5.1) mmol/L Chloride 99 (98-107) mmol/L Carbon Dioxide 27 (21-32) mmol/L Anion Gap 8 (3-11) BUN 16 (6-23) mg/dl Creatinine 0.77 (0.6-1.4) mg/dl Est Cr Clr Drug Dosing 107.7 ml/min eGFR 98.74 BUN/Creatinine Ratio 20.8 H (10-20) Glucose 104 H (70-99(Fasting)) mg/dl Calcium 8.8 (8.6-10.3) mg/dl Magnesium 2.1 (1.7-2.4) mg/dl Procalcitonin 3.15 H (0-0.5) ng/ml Carbamazepine 4.5 (4.0-12.0) mg/L Medications Administered Current Inpatient Medications Acetaminophen (Acetaminophen 325 Mg Tab) 650 mg PO Q4H PRN PRN Reason: Moderate Pain (Scale 4, 5, 6) Stop: 05/10/24 16:06 Albuterol (Albuterol Hfa 8 Gm Inhaler) 1 puffs INH Q4H PRN PRN Reason: Shortness Of Breath Stop: 05/11/24 03:36 Aspirin (Aspirin 81 Mg Ectab) 81 mg PO DAILY [facility] Stop: 05/11/24 08:59 Last Admin: 04/13/24 08:33 Dose: 81 mg Benzonatate (Benzonatate 100 Mg Capsule) 100 mg PO TID [facility] Stop: 05/10/24 16:06 Last Admin: 04/13/24 08:33 Dose: 100 mg Brimonidine Tartrate (Brimonidine Tartrate 0.2% 5ml) 1 drops OP TID [facility] Stop: 05/10/24 20:59 Last Admin: 04/13/24 08:34 Dose: 1 drops Carbamazepine (Carbamazepine 200 Mg Tablet) 200 mg PO BID [facility] Stop: 05/10/24 20:59 Last Admin: 04/13/24 08:33 Dose: 200 mg Docusate Sodium (Docusate Sodium 100 Mg Cap) 100 mg PO BID [facility] Stop: 05/11/24 20:59 Last Admin: 04/13/24 08:34 Dose: Not Given Fluticasone Furoate (Fluticasone Furoate 100mcg 14 Puffs/Inhaler) 1 puffs INH DAILY [facility] Stop: 05/11/24 08:59 Last Admin: 04/13/24 08:34 Dose: 1 puffs Guaifenesin (Guaifenesin 600 Mg Tabcr) 1,200 mg PO Q12 [facility] Stop: 05/10/24 20:59 Last Admin: 04/13/24 08:33 Dose: 1,200 mg Azithromycin 250 mg/ Dextrose 252.5 mls @ 125 mls/hr IV Q24H [facility] Stop: 04/16/24 19:02 Last Infusion: 04/12/24 18:26 Dose: Infused Piperacillin Sod/Tazobactam Sod (Zosyn) 4.5 gm in 100 mls @ 25 mls/hr IV Q8H [facility]; Protocol Stop: 04/17/24 21:59 Last Admin: 04/13/24 05:56 Dose: 25 mls/hr Heparin Sodium/Dextrose (Heparin Sodium/Dextrose) 25,000 units in 500 mls @ 40 mls/hr IV .[id number] [facility]; Protocol Stop: 05/11/24 10:29 Last Admin: 04/13/24 08:08 Dose: 2,000 units/hr, 40 mls/hr Levetiracetam (Levetiracetam 500 Mg Tab) 500 mg PO BID [facility] Stop: 05/11/24 11:59 Last Admin: 04/13/24 08:33 Dose: 500 mg Levothyroxine Sodium (Levothyroxine Sodium 175 Mcg Tablet) 175 mcg PO DAILYBB [facility] Stop: 05/11/24 06:29 Last Admin: 04/13/24 05:55 Dose: 175 mcg Linaclotide (Linaclotide 145 Mcg Capsule) 145 mcg PO DAILY [facility] Stop: 05/11/24 01:04 Last Admin: 04/13/24 08:33 Dose: 145 mcg Magnesium Hydroxide (Magnesium Hydroxide Susp 30 Ml Udc) 30 ml PO Q8H [facility] Stop: 05/10/24 16:29 Last Admin: 04/13/24 08:33 Dose: 30 ml Olanzapine (Olanzapine 5 Mg Tablet) 15 mg PO HS [facility] Stop: 05/10/24 20:59 Last Admin: 04/12/24 20:24 Dose: 15 mg Ondansetron HCl (Ondansetron Inj 2 Mg/Ml 2 Ml Vial) 4 mg IV Q4H PRN PRN Reason: Nausea And Vomiting Stop: 05/10/24 16:06 Pantoprazole Sodium (Pantoprazole 40 Mg Tab) 40 mg PO BID [facility] Stop: 05/10/24 20:59 Last Admin: 04/13/24 08:33 Dose: 40 mg Polyethylene Glycol (Polyethylene (Miralax) 17 Gm Pack) 17 gm PO BID [facility] Stop: 05/10/24 20:59 Last Admin: 04/13/24 08:34 Dose: Not Given Potassium Chloride (Potassium Chloride 10 Meq Tabcr) 10 meq PO BID [facility] Stop: 05/12/24 20:59 Last Admin: 04/13/24 08:33 Dose: 10 meq Rosuvastatin Calcium (Rosuvastatin Calcium 10 Mg Tab) 10 mg PO DAILY [facility] Stop: 05/11/24 08:59 Last Admin: 04/13/24 08:33 Dose: 10 mg Sodium Chloride (Sodium Chlor 7% 4 Ml Neb) 4 ml NEB BIDR [facility] Stop: 05/10/24 18:59 Last Admin: 04/13/24 07:09 Dose: 4 ml Warfarin Sodium (Warfarin Sod 5 Mg Tab) 5 mg PO DAILY@1600 [facility] Stop: 05/12/24 15:59 Last Admin: 04/12/24 16:23 Dose: 5 mg
[2024-04-13] MEDS: POTASSIUM CHLORIDE CRTAB 20 MEQ TABCR PO STA (09:00)
[2024-04-13 13:38] LABS: ANTI-Xa, UFH(UnfractionatedHep 0.24 IU/ml (0.3-0.7)
[2024-04-13] MEDS: ACETAMINOPHEN 325 MG TAB PO PRN (14:29)
[2024-04-13] MEDS: SODIUM CHLORIDE 0.9% 1,000 ML IV ONE (16:11)
[2024-04-13] MEDS: ALBUMIN 25% 25 GM/100 ML VIAL IV ONE (17:09)
[2024-04-13 21:07] LABS: ANTI-Xa, UFH(UnfractionatedHep 0.26 IU/ml (0.3-0.7)
[2024-04-14 04:09] LABS: Basophils # (auto) 0.06 K/uL (0.00-0.20); Basophils % (auto) 0.4 %; Eosinophils # (auto) 0.14 K/uL (0.00-0.50); Eosinophils % (auto) 0.9 %; Hematocrit (blood only) 30.3 % (42.0-52.0); Hemoglobin 10.2 g/dl (14.0-18.0); Immature Granulocytes # (auto) 0.16 K/uL (0.01-0.20); Immature Granulocytes % (auto) 1.1 %; Lymphocytes # (auto) 1.04 K/uL (1.20-3.40); Mean Corpuscular Hemoglobin 30.4 pg (25.0-34.0); Mean Corpuscular Hgb Conc 33.7 g/dL (32.0-36.0); Mean Corpuscular Volume 90.2 fL (80.0-100.0); Mean Platelet Volume 12.2 fL (9.4-12.4); Monocytes # (auto) 1.08 K/uL (0.11-0.59); Monocytes % (auto) 7.3 %; Neutrophils % (auto) 83.3 %; Platelet Count 175 K/uL (130-400); RDW Standard Deviation 52.3 fL (36.4-46.3); Red Blood Count 3.36 M/uL (4.70-6.10); White Blood Count 14.78 K/ul (4.8-10.8)
[2024-04-14 04:21] LABS: BUN Creatinine Ratio 23.1 (10-20); Calcium 8.5 mg/dl (8.6-10.3); Creatinine Clr Calc Pharmacy 129.8 ml/min; Potassium 3.3 mmol/L (3.5-5.1)
[2024-04-14 04:25] LABS: ANTI-Xa, UFH(UnfractionatedHep 0.33 IU/ml (0.3-0.7)
[2024-04-14 04:34] LABS: Magnesium 2.2 mg/dl (1.7-2.4); Phosphorus 1.5 mg/dl (2.5-4.9)
[2024-04-14] MEDS ORDERED: POTASSIUM PHOS 3 MMOL/1 ML INFUSION IV STA (04:42)
[2024-04-14] MEDS: POTASSIUM PHOSPHATE 30 MMOL in SODIUM CHLORIDE 0.9% 500 ML IV ONE (05:38)
--- NOTE | 2024-04-14 09:07 | Hospitalist Progress Note ---
Date of Service April 14, 2024 Assessment & Plan (1) Sepsis: (2) Multifocal pneumonia: (3) Lactic acidosis: (4) Schizoaffective disorder: Plan: Multifocal pneumonia Septic shock--POA Lactic acidosis Acute hypoxic respiratory failure with hypoxia --Chest CT:Cardiomegaly and emphysema. Multifocal airspace consolidation is typical for pneumonia. Clinical correlation will be required and radiographic follow-up to resolution is recommended. Trace pleural effusions. Nonspecific pneumatosis intestinalis is seen in the partially imaged left colon. Mildly enlarged mediastinal lymph nodes are nonspecific and likely reactive. --ECHO: Mild concentric LVH. Left ventricle is hyperdynamic. EF> 70%. No regional wall motion abnormality. No significant valvular pathology. Trace circumferential pericardial effusion. --Video Swallow:Silent aspiration with thin liquid barium. Multiple consistency laryngeal penetration. -- BioFire negative --Blood cultures negative to date Procalcitonin elevated 3.1 -> 1.2 Nasal MRSA negative Vancomycin discontinued Levophed discontinued Continue azithromycin, Zosyn Received IV fluids, nebs PRN Appreciate critical care input Leukocytosis improved Had swallow evaluation on 04/12 Continue aspiration precautions Fecal retention Stercoral colitis Pneumatosis intestinalis of left colon ? Obstipation --CT ABD:There is rectosigmoid fecal reaction and moderate to severe constipation with diffuse colonic distention. There is evidence of a nonspecific proctocolitis, likely stercoral. There is nonspecific pneumatosis intestinalis of left colon as detailed above, which may be related to stercoral proctocolitis. This could also potentially be seen in the setting of bowel ischemia. Clinical correlation will be essential. The small bowel loops normal caliber with no evidence of high-grade obstruction. 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 The remaining mesenteric arteries are patent. -- Continue aspirin, statin Appreciate vascular surgery input:Discussed on 04/11/2024: Recommends long-term anticoagulation No surgical intervention needed currently as per vascular surgery --Continue IV heparin Started on Coumadin Monitor INR Acute kidney injury Likely multifactorial secondary to dehydration, septic shock Cr improved with IV fluids Monitor renal function Avoid nephrotoxic agents as able Resolved Hypokalemia Replete electrolytes as needed Monitor Schizoaffective disorder Normal Tegretol levels - Continue on Zyprexa, Tegretol Seizure disorder -Continue Keppra and carbamazepine Chronic constipation ? IBS on Linzess Continue Linzess Also started on bowel regimen Encouraged to ambulate COPD -Continue home inhalers Peripheral vascular disease Hyperlipidemia -Chronic, stable continue home meds Hypothyroidism Elevated TSH, normal free T4 -Continue levothyroxine Will need repeat thyroid function test as outpatient GERD -Continue home PPI Glaucoma -patient reports that he is legally blind, assist with ambulation DVT Px: IV Heparin+ Coumadin CODE STATUS: Full code Admission and Anticipated Discharge Date Admission Date: April 10, 2024 Subjective Patient seen in follow up of pneumonia, stercoral colitis + cough with sputum (reddish) Had swallow evaluation Denies any abdominal pain, chest pain, dyspnea Still on suppl. O2 No other complaints Guards at bedside Discussed w/ RN, pt had liquid stool yesterday, BP improved today after IVF Review of Systems Review of Systems: All systems reviewed & are unremarkable except as noted in Subjective Physical Exam Physical Exam: General Appearance:Thin, Frail, Chronically ill appearing, no apparent distress Head: normocephalic, Atraumatic Eyes: normal inspection Neck: supple Respiratory/Chest: Decreased breath sounds, scattered crackles, No accessory muscle use Cardiovascular: S1, S2, No murmur Abdomen/GI:Soft, Non tender, mildly distended, bowel sounds present Extremities/Musculoskeletal:normal inspection, no edema Neurologic/Psych:AAOX3, grossly no focal neurological deficits Skin: warm, dry Results & Data Results & Data Vital Signs (Past 12 Hours) Vital Signs Temp Pulse Pulse Pulse Resp BP Pulse Ox 04/14/24 07:25 85 16 93 04/14/24 07:19 36.9 C 94 H 20 130/80 89 L 04/14/24 07:00 88 04/14/24 03:05 36.8 C 91 H 21 134/83 92 04/14/24 02:00 04/13/24 22:42 37.2 C 83 18 107/68 90 04/13/24 22:11 86 Pulse Ox O2 Del Method O2 Del Method O2 Flow Rate O2 Flow Rate 04/14/24 07:25 Nasal Cannula 3 04/14/24 07:19 Nasal Cannula 3.0 04/14/24 07:00 04/14/24 03:05 Nasal Cannula 3 04/14/24 02:00 91 Nasal Cannula 2 04/13/24 22:42 Nasal Cannula 3 04/13/24 22:11 Laboratory Results 04/14/24 04/13/24 04/13/24 Range/Units 03:27 19:45 17:34 WBC 14.78 H (4.8-10.8) K/ul RBC 3.36 L (4.70-6.10) M/uL Hgb 10.2 L (14.0-18.0) g/dl Hct 30.3 L (42.0-52.0) % MCV 90.2 (80.0-100.0) fL MCH 30.4 (25.0-34.0) pg MCHC 33.7 (32.0-36.0) g/dL RDW Std Deviation 52.3 H (36.4-46.3) fL RDW Coeff of Yadira 16.0 H (11.5-14.5) % Plt Count 175 (130-400) K/uL MPV 12.2 (9.4-12.4) fL Immature Gran % (Auto) 1.1 % Neut % (Auto) 83.3 % Lymph % (Auto) 7.0 % [place] % (Auto) 7.3 % Eos % (Auto) 0.9 % Baso % (Auto) 0.4 % Neut # (Auto) 12.30 H (1.40-6.50) K/uL Lymph # (Auto) 1.04 L (1.20-3.40) K/uL [place] # (Auto) 1.08 H (0.11-0.59) K/uL Eos # (Auto) 0.14 (0.00-0.50) K/uL Baso # (Auto) 0.06 (0.00-0.20) K/uL Immature Gran # (Auto) 0.16 (0.01-0.20) K/uL Heparin Anti-Xa, Unfract 0.33 0.26 L (0.3-0.7) IU/ml Sodium 136 (136-145) mmol/L Potassium 3.3 L (3.5-5.1) mmol/L Chloride 100 (98-107) mmol/L Carbon Dioxide 27 (21-32) mmol/L Anion Gap 9 (3-11) BUN 15 (6-23) mg/dl Creatinine 0.65 (0.6-1.4) mg/dl Est Cr Clr Drug Dosing 129.8 ml/min eGFR 103.92 BUN/Creatinine Ratio 23.1 H (10-20) Glucose 89 (70-99(Fasting)) mg/dl Lactate 1.1 (0.4-2.0) mmol/L Calcium 8.5 L (8.6-10.3) mg/dl Phosphorus 1.5 L* (2.5-4.9) mg/dl Magnesium 2.2 (1.7-2.4) mg/dl Procalcitonin 1.23 H (0-0.5) ng/ml 04/13/24 Range/Units 12:45 WBC (4.8-10.8) K/ul RBC (4.70-6.10) M/uL Hgb (14.0-18.0) g/dl Hct (42.0-52.0) % MCV (80.0-100.0) fL MCH (25.0-34.0) pg MCHC (32.0-36.0) g/dL RDW Std Deviation (36.4-46.3) fL RDW Coeff of Yadira (11.5-14.5) % Plt Count (130-400) K/uL MPV (9.4-12.4) fL Immature Gran % (Auto) % Neut % (Auto) % Lymph % (Auto) % [place] % (Auto) % Eos % (Auto) % Baso % (Auto) % Neut # (Auto) (1.40-6.50) K/uL Lymph # (Auto) (1.20-3.40) K/uL [place] # (Auto) (0.11-0.59) K/uL Eos # (Auto) (0.00-0.50) K/uL Baso # (Auto) (0.00-0.20) K/uL Immature Gran # (Auto) (0.01-0.20) K/uL Heparin Anti-Xa, Unfract 0.24 L (0.3-0.7) IU/ml Sodium (136-145) mmol/L Potassium (3.5-5.1) mmol/L Chloride (98-107) mmol/L Carbon Dioxide (21-32) mmol/L Anion Gap (3-11) BUN (6-23) mg/dl Creatinine (0.6-1.4) mg/dl Est Cr Clr Drug Dosing ml/min eGFR BUN/Creatinine Ratio (10-20) Glucose (70-99(Fasting)) mg/dl Lactate (0.4-2.0) mmol/L Calcium (8.6-10.3) mg/dl Phosphorus (2.5-4.9) mg/dl Magnesium (1.7-2.4) mg/dl Procalcitonin (0-0.5) ng/ml Medications Administered Current Inpatient Medications Acetaminophen (Acetaminophen 325 Mg Tab) 650 mg PO Q4H PRN PRN Reason: Moderate Pain (Scale 4, 5, 6) Stop: 05/10/24 16:06 Last Admin: 04/13/24 14:29 Dose: 650 mg Albuterol (Albuterol Hfa 8 Gm Inhaler) 1 puffs INH Q4H PRN PRN Reason: Shortness Of Breath Stop: 05/11/24 03:36 Aspirin (Aspirin 81 Mg Ectab) 81 mg PO DAILY [facility] Stop: 05/11/24 08:59 Last Admin: 04/13/24 08:33 Dose: 81 mg Benzonatate (Benzonatate 100 Mg Capsule) 100 mg PO TID [facility] Stop: 05/10/24 16:06 Last Admin: 04/14/24 02:54 Dose: 100 mg Brimonidine Tartrate (Brimonidine Tartrate 0.2% 5ml) 1 drops OP TID [facility] Stop: 05/10/24 20:59 Last Admin: 04/13/24 21:32 Dose: 1 drops Carbamazepine (Carbamazepine 200 Mg Tablet) 200 mg PO BID [facility] Stop: 05/10/24 20:59 Last Admin: 04/13/24 21:32 Dose: 200 mg Docusate Sodium (Docusate Sodium 100 Mg Cap) 100 mg PO BID [facility] Stop: 05/11/24 20:59 Last Admin: 04/13/24 21:31 Dose: 100 mg Fluticasone Furoate (Fluticasone Furoate 100mcg 14 Puffs/Inhaler) 1 puffs INH DAILY [facility] Stop: 05/11/24 08:59 Last Admin: 04/13/24 08:34 Dose: 1 puffs Guaifenesin (Guaifenesin 600 Mg Tabcr) 1,200 mg PO Q12 [facility] Stop: 05/10/24 20:59 Last Admin: 04/13/24 21:32 Dose: 1,200 mg Azithromycin 250 mg/ Dextrose 252.5 mls @ 125 mls/hr IV Q24H [facility] Stop: 04/16/24 19:02 Last Infusion: 04/13/24 20:38 Dose: Infused Piperacillin Sod/Tazobactam Sod (Zosyn) 4.5 gm in 100 mls @ 25 mls/hr IV Q8H [facility]; Protocol Stop: 04/17/24 21:59 Last Admin: 04/14/24 05:38 Dose: 25 mls/hr Heparin Sodium/Dextrose (Heparin Sodium/Dextrose) 25,000 units in 500 mls @ 44 mls/hr IV .[id number] [facility]; Protocol Stop: 05/11/24 10:29 Last Admin: 04/14/24 08:44 Dose: 2,200 units/hr, 44 mls/hr Potassium Phosphate 30 mmol/ (Sodium Chloride) 510 mls @ 100 mls/hr IV ONE ONE Stop: 04/14/24 10:35 Last Admin: 04/14/24 05:38 Dose: 100 mls/hr Levetiracetam (Levetiracetam 500 Mg Tab) 500 mg PO BID [facility] Stop: 05/11/24 11:59 Last Admin: 04/13/24 21:32 Dose: 500 mg Levothyroxine Sodium (Levothyroxine Sodium 175 Mcg Tablet) 175 mcg PO DAILYBB [facility] Stop: 05/11/24 06:29 Last Admin: 04/14/24 05:38 Dose: 175 mcg Linaclotide (Linaclotide 145 Mcg Capsule) 145 mcg PO DAILY [facility] Stop: 05/11/24 01:04 Last Admin: 04/13/24 08:33 Dose: 145 mcg Magnesium Hydroxide (Magnesium Hydroxide Susp 30 Ml Udc) 30 ml PO Q8H [facility] Stop: 05/10/24 16:29 Last Admin: 04/14/24 02:54 Dose: 30 ml Olanzapine (Olanzapine 5 Mg Tablet) 15 mg PO HS [facility] Stop: 05/10/24 20:59 Last Admin: 04/13/24 21:32 Dose: 15 mg Ondansetron HCl (Ondansetron Inj 2 Mg/Ml 2 Ml Vial) 4 mg IV Q4H PRN PRN Reason: Nausea And Vomiting Stop: 05/10/24 16:06 Pantoprazole Sodium (Pantoprazole 40 Mg Tab) 40 mg PO BID [facility] Stop: 05/10/24 20:59 Last Admin: 04/13/24 21:32 Dose: 40 mg Polyethylene Glycol (Polyethylene (Miralax) 17 Gm Pack) 17 gm PO BID [facility] Stop: 05/10/24 20:59 Last Admin: 04/13/24 21:27 Dose: Not Given Potassium Chloride (Potassium Chloride 10 Meq Tabcr) 10 meq PO BID [facility] Stop: 05/12/24 20:59 Last Admin: 04/13/24 21:32 Dose: 10 meq Rosuvastatin Calcium (Rosuvastatin Calcium 10 Mg Tab) 10 mg PO DAILY [facility] Stop: 05/11/24 08:59 Last Admin: 04/13/24 08:33 Dose: 10 mg Sodium Chloride (Sodium Chlor 7% 4 Ml Neb) 4 ml NEB BIDR [facility] Stop: 05/10/24 18:59 Last Admin: 04/14/24 07:25 Dose: 4 ml Warfarin Sodium (Warfarin Sod 5 Mg Tab) 5 mg PO DAILY@1600 [facility] Stop: 05/12/24 15:59 Last Admin: 04/13/24 17:33 Dose: 5 mg
[2024-04-14 10:10] LABS: INR 1.6 (0.9-1.1); Prothrombin Time 16.4 Seconds (9.0-12.0)
--- NOTE | 2024-04-14 17:59 | XRay Report ---
XR chest 1V portable, XR KUB/Abdomen 1 view HISTORY: 68 years-old Male hypoxia, follow up pna acute shortness of breath COMPARISON: Chest radiograph 04/13/2024, CT chest, abdomen and pelvis 04/10/2024 TECHNIQUE: AP view of the chest FINDINGS: CHEST: Cardiac silhouette is upper limits of normal in size. Pulmonary emphysema. Mixed interstitial and josé luis eolar opacities are redemonstrated within a peripheral predominant distribution there is progressive airspace consolidation throughout the right lung. No pneumothorax or large pleural effusion. Bones ap pear grossly intact. Gaseous distention of the large bowel. KUB: Gaseous distention of the large bowel. Pneumatosis of the colon better seen on prior CT. Contrast in the cecum. No urolith. No acute fracture. IMPRESSION: 1. Multifocal mixed interstitial and alveolar opacities redemonstrated, mildly progressed within the right lung. 2. Emphysema. 3. Gaseous distention of the colon is redemonstrated which may represent a colonic ileus. The previou sly noted pneumatosis is better seen on the prior study. Findings appear appears similar to the Octob er 2023 CT abdomen and pelvis. ACT 112: Negative or not required by law. The above report was generated using voice recognition software. It may contain grammatical, syntax o r spelling errors. Electronically signed by: Jevon Redding M.D. 04/14/2024 5:56 PM
[2024-04-15] MEDS: ALBUTEROL HFA 8 GM INHALER INH PRN (03:19)
--- NOTE | 2024-04-15 06:56 | XRay Report ---
XR chest 1V portable HISTORY: 68 years-old Male sob acute shortness of breath COMPARISON: 04/14/2024 TECHNIQUE: AP view of the chest FINDINGS: Emphysema with multifocal mixed interstitial and alveolar opacities redemonstrated, generally unchang ed. No pneumothorax or pleural effusion. Heart size is upper limits of normal. Prominent gaseous dist ention of the colon redemonstrated. IMPRESSION: No significant change of the extensive mixed interstitial and alveolar opacities. ACT 112: Negative or not required by law. The above report was generated using voice recognition software. It may contain grammatical, syntax o r spelling errors. Electronically signed by: Jevon Redding M.D. 04/15/2024 6:54 AM
[2024-04-15] MEDS: ALBUT/IPRATROP 3MG/0.5MG NEB 3 ML VIAL NEB PRN (07:53)
--- NOTE | 2024-04-15 08:02 | Hospitalist Progress Note ---
Date of Service April 15, 2024 Assessment & Plan (1) Sepsis: (2) Multifocal pneumonia: (3) Lactic acidosis: (4) Schizoaffective disorder: Plan: Multifocal pneumonia Septic shock--POA Lactic acidosis Acute hypoxic respiratory failure with hypoxia --Chest CT:Cardiomegaly and emphysema. Multifocal airspace consolidation is typical for pneumonia. Clinical correlation will be required and radiographic follow-up to resolution is recommended. Trace pleural effusions. Nonspecific pneumatosis intestinalis is seen in the partially imaged left colon. Mildly enlarged mediastinal lymph nodes are nonspecific and likely reactive. --ECHO: Mild concentric LVH. Left ventricle is hyperdynamic. EF> 70%. No regional wall motion abnormality. No significant valvular pathology. Trace circumferential pericardial effusion. --Video Swallow:Silent aspiration with thin liquid barium. Multiple consistency laryngeal penetration. -- BioFire negative --Blood cultures negative to date Procalcitonin elevated 3.1 -> 1.2 -> 0.5 Nasal MRSA negative Vancomycin discontinued Levophed discontinued Continue azithromycin, Zosyn Received IV fluids, nebs PRN Appreciate critical care input Had swallow evaluation on 04/12 Continue aspiration precautions 04/14 CXR and KUB repeated- cont. to show multifocal pna, colon dilation. lactate normal and procalcitonin down to 1.2. Sputum cultx results - normal nellie. Pt cont. on zosyn and azithro. 04/15/24 Pt's oxygen requirement has increased - overnight placed on highflow oxygen. Discussed with pulmonary/ director of market analysis -> plan to transfer to ICU for further eval and care Fecal retention Stercoral colitis Pneumatosis intestinalis of left colon ? Obstipation --CT ABD:There is rectosigmoid fecal reaction and moderate to severe constipation with diffuse colonic distention. There is evidence of a nonspecific proctocolitis, likely stercoral. There is nonspecific pneumatosis intestinalis of left colon as detailed above, which may be related to stercoral pr octocolitis. This could also potentially be seen in the setting of bowel ischemia. Clinical correlation will be essential. The small bowel loops normal caliber with no evidence of high-grade obstruction. --S/P manual disimpaction on 04/11/2024 --Lactic acidosis improved/ normal 1.1 -- received IV fluids --Appreciate surgery input Continue bowel regimen KUB repeated as abd. cont. to be distended, shows colonic distention - Pt is passing gas, having liquid BMs. -> re-discussed w/ surgery - Per surgery - It is expected that the patient will continue to show bowel dilation on radiology imaging for quite sometime. 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 The remaining mesenteric arteries are patent. -- Continue aspirin, statin Appreciate vascular surgery input:Discussed on 04/11/2024: Recommends long-term anticoagulation No surgical intervention needed currently as per vascular surgery --Continue IV heparin -> now stopped as INR supratherap. Started on Coumadin - now on hold as INR supratherap. Monitor INR Acute kidney injury Likely multifactorial secondary to dehydration, septic shock Cr improved with IV fluids Monitor renal function Avoid nephrotoxic agents as able Resolved Hypokalemia Replete electrolytes as needed Monitor Schizoaffective disorder Normal Tegretol levels - Continue on Zyprexa, Tegretol Seizure disorder -Continue Keppra and carbamazepine Chronic constipation ? IBS on Linzess Continue Linzess Also started on bowel regimen Encouraged to ambulate COPD -Continue home inhalers Peripheral vascular disease Hyperlipidemia -Chronic, stable continue home meds Hypothyroidism Elevated TSH, normal free T4 -Continue levothyroxine Will need repeat thyroid function test as outpatient GERD -Continue home PPI Glaucoma -patient reports that he is legally blind, assist with ambulation DVT Px: IV Heparin+ Coumadin (now on hold as INR supratherap.) CODE STATUS: Full code Admission and Anticipated Discharge Date Admission Date: April 10, 2024 Subjective Patient seen in follow up of pneumonia, stercoral colitis + cough with sputum (villareal color + red) Had swallow evaluation Denies any abdominal pain, chest pain, dyspnea - however abdomen distended. Pt reports passing flatus, has liquid BM per RN Has been on suppl. O2- however now requirement increased, overnight pt was placed on highflow - discussed w/ pulm. / director of market analysis -> plan to transfer pt to ICU for for further eval and care Review of Systems Review of Systems: All systems reviewed & are unremarkable except as noted in Subjective Physical Exam Physical Exam: General Appearance:Thin, Frail, Chronically ill appearing, no apparent distress Head: normocephalic, Atraumatic Eyes: normal inspection Neck: supple Respiratory/Chest: + course breath sounds, No accessory muscle use Cardiovascular: S1, S2, No murmur Abdomen/GI:Soft, Non tender, mildly distended, bowel sounds present Extremities/Musculoskeletal:normal inspection, no edema Neurologic/Psych:AAOX3, grossly no focal neurological deficits Skin: warm, dry Results & Data Results & Data Vital Signs (Past 12 Hours) Vital Signs Temp Pulse Pulse Pulse Resp BP Pulse Ox 04/15/24 05:53 97 04/15/24 03:39 84 22 91 04/15/24 02:51 36.4 C L 80 19 105/68 89 L 04/15/24 02:00 04/14/24 23:40 36.8 C 75 18 94/59 L 93 04/14/24 21:47 79 Pulse Ox O2 Del Method O2 Del Method O2 Flow Rate O2 Flow Rate FiO2 04/15/24 05:53 High Flow Nasal Cannula 30 90 04/15/24 03:39 High Flow Nasal Cannula 30 100 04/15/24 02:51 Nasal Cannula 4.5 04/15/24 02:00 92 Nasal Cannula 4.5 04/14/24 23:40 Nasal Cannula 4.5 04/14/24 21:47 Laboratory Results 04/15/24 04/15/24 Range/Units 09:12 06:55 WBC 15.86 H (4.8-10.8) K/ul RBC 3.31 L (4.70-6.10) M/uL Hgb 9.9 L (14.0-18.0) g/dl Hct 30.0 L (42.0-52.0) % MCV 90.6 (80.0-100.0) fL MCH 29.9 (25.0-34.0) pg MCHC 33.0 (32.0-36.0) g/dL RDW Std Deviation 53.1 H (36.4-46.3) fL RDW Coeff of Yadira 16.3 H (11.5-14.5) % Plt Count 194 (130-400) K/uL MPV 12.1 (9.4-12.4) fL PT 41.5 H (9.0-12.0) Seconds INR 4.4 H (0.9-1.1) Heparin Anti-Xa, Unfract 0.29 L (0.3-0.7) IU/ml Sodium 135 L (136-145) mmol/L Potassium 2.9 L (3.5-5.1) mmol/L Chloride 98 (98-107) mmol/L Carbon Dioxide 29 (21-32) mmol/L Anion Gap 8 (3-11) BUN 17 (6-23) mg/dl Creatinine 0.69 (0.6-1.4) mg/dl Est Cr Clr Drug Dosing 122.4 ml/min eGFR 102.06 BUN/Creatinine Ratio 24.6 H (10-20) Glucose 84 (70-99(Fasting)) mg/dl Lactate 1.3 (0.4-2.0) mmol/L Calcium 8.3 L (8.6-10.3) mg/dl Phosphorus 2.1 L (2.5-4.9) mg/dl Magnesium 2.2 (1.7-2.4) mg/dl B-Natriuretic Peptide 165 H (0-100) pg/ml Procalcitonin 0.58 H (0-0.5) ng/ml Medications Administered Current Inpatient Medications Acetaminophen (Acetaminophen 325 Mg Tab) 650 mg PO Q4H PRN PRN Reason: Moderate Pain (Scale 4, 5, 6) Stop: 05/10/24 16:06 Last Admin: 04/13/24 14:29 Dose: 650 mg Albuterol (Albuterol Hfa 8 Gm Inhaler) 1 puffs INH Q4H PRN PRN Reason: Shortness Of Breath Stop: 05/11/24 03:36 Last Admin: 04/15/24 03:19 Dose: 1 puffs Albuterol (Albut/Ipratrop 3mg/0.5mg Neb 3 Ml Vial) 3 ml NEB Q6R PRN; Protocol PRN Reason: Shortness Of Breath Or Wheezing Stop: 05/15/24 07:34 Last Admin: 04/15/24 07:53 Dose: 3 ml Aspirin (Aspirin 81 Mg Ectab) 81 mg PO DAILY [facility] Stop: 05/11/24 08:59 Last Admin: 04/15/24 10:35 Dose: Not Given Benzonatate (Benzonatate 100 Mg Capsule) 100 mg PO TID [facility] Stop: 05/10/24 16:06 Last Admin: 04/15/24 10:35 Dose: Not Given Brimonidine Tartrate (Brimonidine Tartrate 0.2% 5ml) 1 drops OP TID [facility] Stop: 05/10/24 20:59 Last Admin: 04/15/24 09:08 Dose: 1 drops Carbamazepine (Carbamazepine 200 Mg Tablet) 200 mg PO BID [facility] Stop: 05/10/24 20:59 Last Admin: 04/15/24 10:35 Dose: Not Given Docusate Sodium (Docusate Sodium 100 Mg Cap) 100 mg PO BID [facility] Stop: 05/11/24 20:59 Last Admin: 04/15/24 10:35 Dose: Not Given Fluticasone Furoate (Fluticasone Furoate 100mcg 14 Puffs/Inhaler) 1 puffs INH DAILY [facility] Stop: 05/11/24 08:59 Last Admin: 04/15/24 09:07 Dose: 1 puffs Guaifenesin (Guaifenesin 600 Mg Tabcr) 1,200 mg PO Q12 [facility] Stop: 05/10/24 20:59 Last Admin: 04/15/24 10:35 Dose: Not Given Azithromycin 250 mg/ Dextrose 252.5 mls @ 125 mls/hr IV Q24H [facility] Stop: 04/16/24 19:02 Last Infusion: 04/14/24 18:49 Dose: Infused Piperacillin Sod/Tazobactam Sod (Zosyn) 4.5 gm in 100 mls @ 25 mls/hr IV Q8H [facility]; Protocol Stop: 04/17/24 21:59 Last Infusion: 04/15/24 10:35 Dose: Infused Potassium Chloride (K Isaísa / Wtr) 10 meq in 100 mls @ 100 mls/hr IV Q1H [facility] Stop: 04/15/24 11:44 Last Admin: 04/15/24 10:19 Dose: 100 mls/hr Levetiracetam (Levetiracetam 500 Mg Tab) 500 mg PO BID [facility] Stop: 05/11/24 11:59 Last Admin: 04/15/24 10:35 Dose: Not Given Levothyroxine Sodium (Levothyroxine Sodium 175 Mcg Tablet) 175 mcg PO DAILYBB [facility] Stop: 05/11/24 06:29 Last Admin: 04/15/24 05:50 Dose: Not Given Linaclotide (Linaclotide 145 Mcg Capsule) 145 mcg PO DAILY [facility] Stop: 05/11/24 01:04 Last Admin: 04/15/24 10:35 Dose: Not Given Magnesium Hydroxide (Magnesium Hydroxide Susp 30 Ml Udc) 30 ml PO Q8H [facility] Stop: 05/10/24 16:29 Last Admin: 04/15/24 10:35 Dose: Not Given Olanzapine (Olanzapine 5 Mg Tablet) 15 mg PO HS [facility] Stop: 05/10/24 20:59 Last Admin: 04/14/24 21:07 Dose: 15 mg Ondansetron HCl (Ondansetron Inj 2 Mg/Ml 2 Ml Vial) 4 mg IV Q4H PRN PRN Reason: Nausea And Vomiting Stop: 05/10/24 16:06 Pantoprazole Sodium (Pantoprazole 40 Mg Tab) 40 mg PO BID [facility] Stop: 05/10/24 20:59 Last Admin: 04/15/24 10:36 Dose: Not Given Potassium Chloride (Potassium Chloride 10 Meq Tabcr) 10 meq PO BID [facility] Stop: 05/12/24 20:59 Last Admin: 04/15/24 10:36 Dose: Not Given Rosuvastatin Calcium (Rosuvastatin Calcium 10 Mg Tab) 10 mg PO DAILY [facility] Stop: 05/11/24 08:59 Last Admin: 04/15/24 10:36 Dose: Not Given Sodium Chloride (Sodium Chlor 7% 4 Ml Neb) 4 ml NEB BIDR [facility] Stop: 05/10/24 18:59 Last Admin: 04/15/24 07:53 Dose: 4 ml Warfarin Sodium (Warfarin Sod 5 Mg Tab) 5 mg PO DAILY@1600 [facility] Stop: 05/12/24 15:59 Last Admin: 04/14/24 16:27 Dose: 5 mg
[2024-04-15 08:23] LABS: Hemoglobin 9.9 g/dl (14.0-18.0); Mean Corpuscular Hemoglobin 29.9 pg (25.0-34.0); Mean Corpuscular Volume 90.6 fL (80.0-100.0); Mean Platelet Volume 12.1 fL (9.4-12.4); Platelet Count 194 K/uL (130-400); RDW Coefficient of Variation 16.3 % (11.5-14.5); RDW Standard Deviation 53.1 fL (36.4-46.3); Red Blood Count 3.31 M/uL (4.70-6.10); White Blood Count 15.86 K/ul (4.8-10.8)
--- NOTE | 2024-04-15 08:26 | Pulmonary Consultation ---
Date of Consultation April 15, 2024 Assessment & Plan (1) Multifocal pneumonia: (2) Acute respiratory failure with hypoxia: (3) COPD with emphysema: Plan 68-year-old male admitted to the hospital for pneumonia and was found to have enlarged lower colon. Was admitted initially to the ICU for hypotension and was then downgraded Past medical history: COPD, Hypothyroidism CT chest 04/10/2024 personally reviewed: Motion degraded study Patchy opacities appreciated bilaterally right upper right middle lingula as well as bilateral lower lobes Cardiomegaly With trace bilateral pleural effusion Minimal mediastinal and hilar lymphadenopathy 2D echo 04/11/2024: EF greater than 70%, mild concentric LVH, RV hyperdynamic with normal size --Acute hypoxic respiratory failure Possible aspiration pneumonia with multifocal opacities Respiratory BioFire negative for everything on 04/10/2024 --COPD with emphysema On [place] at home Plan: Follow BNP Follow-up procalcitonin Patient has worsening infiltrates on the chest x-ray Patient seems to be most likely aspirating Continue with antibiotics Given the oxygen requirement and patient looking lethargic, I will transfer the patient to the ICU In the ICU probable intubation and bronchoscopy will be thought of Case was discussed with RN as well as primary team I have personally spent 38 minutes of critical care time in the direct management of this patient. This is a life/limb threatening event. This includes time spent evaluating patient, direct bedside care, chart review, placing orders, interpretation of diagnostic studies, discussion with consultants, patient, and family members, as well as other required patient management activities. This time is exclusive of all separately billable procedures, and teaching time and separate from and in addition to any other critical care service time. Please note the above document was generated using voice recognition software. It may contain grammatical, syntax or spelling errors. History of Present Illness Attending Physician: Jose Miguel Barker MD History of Present Illness 68-year-old male who was initially admitted to hospital for stercoral colitis initially in the ICU requiring vasopressors was then downgraded to the floor Past medical history: COPD, seizure affective disorder, seizure on carbamazepine, GERD, glaucoma, constipation, hypothyroidism, dyslipidemia, hypertension Pulmonary consulted for worsening hypoxia Patient does have issues with swallowing and is aspirating He was to eating by mouth. Since yesterday evening to today patient was getting worse when it comes to patient's oxygen requirement At the time of examination patient was on 30 L, 80% FiO2, saturating around 95- 96% He was alert, mumbling words when answering questions. Was in mild respiratory distress Denied any chest pain Stated that he is coughing up a lot of phlegm. No dysuria, no diarrhea No headache, no blurry vision Allergies Allergy/AdvReac Type Severity Reaction Status Date / Time No Known Allergies Allergy Verified 04/10/24 16:36 Home Medications Medication Instructions Recorded Confirmed Type albuterol 90 mcg/actuation aerosol 90 mcg inhalation Q4H PRN 04/10/24 04/10/24 History inhaler Shortness Of Breath aspirin 81 mg capsule 81 mg PO DAILY 04/10/24 04/10/24 History brimonidine 0.2 % eye drops 1 drp ophthalmic (eye) TID 04/10/24 04/10/24 History calcium polycarbophil 625 mg 1,250 mg PO BID 04/10/24 04/10/24 History tablet (FiberCon) carbamazepine 200 mg tablet 200 mg PO BID 04/10/24 04/10/24 History cholecalciferol (vitamin D3) 25 25 mcg PO DAILY 04/10/24 04/10/24 History mcg (1,000 unit) tablet ciclesonide 80 mcg/actuation 1 puff inhalation Q12H 04/10/24 04/10/24 History aerosol inhaler ([place]ves[place]) levetiracetam 500 mg tablet 500 mg PO BID 04/10/24 04/10/24 History levothyroxine 175 mcg tablet 175 mcg PO DAILY 04/10/24 04/10/24 History linaclotide 145 mcg capsule 145 mcg PO DAILY 04/10/24 04/10/24 History (Linzess) olanzapine 15 mg tablet 15 mg PO HS 04/10/24 04/10/24 History omeprazole 40 mg capsule,delayed 40 mg PO BID 04/10/24 04/10/24 History release rosuvastatin 10 mg tablet 10 mg PO DAILY 04/10/24 04/10/24 History Patient History Medical History Chronic constipation GERD (gastroesophageal reflux disease) HLD (hyperlipidemia) COPD (chronic obstructive pulmonary disease) Social History Smoking Status: Former smoker Hx Alcohol Use: No Hx Substance Use: No Preferred Language: [place]i Communication Ability: Unable Morning Nanny Required: No Beliefs That Will Affect Care: None Current Living Situation: Other Current Living Situation Comment: Jail Assistive Devices: None Review of Systems 2 Review of Systems: All systems reviewed & are unremarkable except as noted in Subjective Physical Exam 2 Physical Exam: Constitutional: Mild respiratory distress HEENT: EOMI, PERRLA Respiratory system: Decreased air entry bilaterally, positive rhonchi bilaterally, more on the right side, no wheeze, positive crackles bilaterally CVS: S1-S2 positive, no murmurs or gallops Abdomen: Soft, nondistended, positive bowel sounds x4, nontender, obese Extremities: +2 pulses bilaterally radialis/ dorsalis pedis, no cyanosis, no edema Neuro: Awake alert oriented to self Psych: Normal mood and affect G/U: Positive [place] Skin: no rashes, warm and dry Lymphatic: no cervical or axillary lymphadenopathy Results & Data Results & Data Vital Signs (Past 12 Hours) Vital Signs Temp Pulse Pulse Pulse Resp BP Pulse Ox 04/15/24 08:17 36.9 C 89 20 104/69 96 04/15/24 05:53 97 04/15/24 03:39 84 22 91 04/15/24 02:51 36.4 C L 80 19 105/68 89 L 04/15/24 02:00 04/14/24 23:40 36.8 C 75 18 94/59 L 93 04/14/24 21:47 79 Pulse Ox O2 Del Method O2 Del Method O2 Flow Rate O2 Flow Rate FiO2 04/15/24 08:17 High Flow Nasal Cannula 30 04/15/24 05:53 High Flow Nasal Cannula 30 90 04/15/24 03:39 High Flow Nasal Cannula 30 100 04/15/24 02:51 Nasal Cannula 4.5 04/15/24 02:00 92 Nasal Cannula 4.5 04/14/24 23:40 Nasal Cannula 4.5 04/14/24 21:47 Laboratory Results 04/15/24 06:55 04/15/24 06:55 PG Care Time/CCT Total # of Minutes Spent Total Time Spent with Patient: Total time spent is greater than 50% in coordination of care (as documented) at patient's floor/unit and/or counseling patient: Coding Level of Care Code 85670 CRITICAL CARE 1ST 30-74M Diagnoses Multifocal pneumonia J18.9 Acute respiratory failure with hypoxia J96.01 COPD with emphysema J43.9
[2024-04-15 08:32] LABS: Calcium 8.3 mg/dl (8.6-10.3); Magnesium 2.2 mg/dl (1.7-2.4); Potassium 2.9 mmol/L (3.5-5.1)
[2024-04-15 08:37] LABS: ANTI-Xa, UFH(UnfractionatedHep 0.29 IU/ml (0.3-0.7); BUN Creatinine Ratio 24.6 (10-20); Creatinine Clr Calc Pharmacy 122.4 ml/min; INR 4.4 (0.9-1.1); Phosphorus 2.1 mg/dl (2.5-4.9); Prothrombin Time 41.5 Seconds (9.0-12.0)
[2024-04-15] MEDS: POTASSIUM CHLORIDE / WTR 10 MEQ/100 ML PLCT IV SCH (09:14)
--- NOTE | 2024-04-15 09:32 | Surgery Progress Note ---
Date of Service April 15, 2024 Assessment & Plan (1) Stercoral colitis: Plan: Pt admitted for pneumonia, near total occlusion of his SMA and a dilated rectosigmoid with severe fecal retention on 04/10 General surgery was following and had signed off Asked to re-evaluate patient this AM 2/2 KUB yesterday still showing dilation of bowel with improvement of previously noted pneumatosis is better seen on the prior study On exam the patient is not reporting any abdominal complaints. He has been having multiple bowel movements, and is passing flatus lactate is 1.3 It is expected that the patient will continue to show bowel dilation on radiology imaging for quite sometime. No acute surgical intervention indicated If patient does require surgical intervention he will require transfer to a tertiary care center. General surgery will sign off [facility] surgery is covering the weekend as above. pt will likely always have colonic dilation. no pain. ro diet. +bm's. pt also not a surgical candidate here please refer to Dr. Day's note. would follow clinically rather than radiographically. please call if any questions. Admission and Anticipated Discharge Date Admission Date: April 10, 2024 Subjective no complaint of abd pain having multiple loose BMs Review of Systems Gastrointestinal: no abdominal pain, no nausea and no vomiting Physical Exam Gastrointestinal (Abdomen): Inspection/Auscultation: + abdomen distended Percussion/Palpation: abdomen soft; abdomen nontender Results & Data Vital Signs (Past 12 Hours) Vital Signs Temp Pulse Pulse Pulse Resp BP Pulse Ox 04/15/24 09:01 04/15/24 08:17 98.4 F 89 20 104/69 96 04/15/24 05:53 97 04/15/24 03:39 84 22 91 04/15/24 02:51 97.5 F L 80 19 105/68 89 L 04/15/24 02:00 04/14/24 23:40 98.2 F 75 18 94/59 L 93 04/14/24 21:47 79 Pulse Ox O2 Del Method O2 Del Method O2 Flow Rate O2 Flow Rate FiO2 04/15/24 09:01 High Flow Nasal Cannula 30 80 04/15/24 08:17 High Flow Nasal Cannula 30 04/15/24 05:53 High Flow Nasal Cannula 30 90 04/15/24 03:39 High Flow Nasal Cannula 30 100 04/15/24 02:51 Nasal Cannula 4.5 04/15/24 02:00 92 Nasal Cannula 4.5 04/14/24 23:40 Nasal Cannula 4.5 04/14/24 21:47 Diagnostic Findings [place], [place] [phone] XRay Report Patient: IRASEMA BECK [id number] Admit Date: 04/10/24 MR#: [id number] Address1: AMPARO RON Acct ID:[id number] Address2: [facility] [address] Date: 1955 [facility] Zip: [place] [address] Age: 68 Location: 2S Sex: M Room/Bed: [facility] Att Phy: Jose Miguel Barker MD Diagnosis: MULTIFOCAL PNEUMONIA Viktoria Phy: AMPARO Ron Service Date: 04/14/24 Fam Phy: Interpreting Phy: Jevon ReddingAdmit Phy: Jon Rodriguez MD Ordering Phy: Jose Miguel Barker MD cc: ~ XR chest 1V portable, XR KUB/Abdomen 1 view HISTORY: 68 years-old Male hypoxia, follow up pna acute shortness of breath COMPARISON: Chest radiograph 04/13/2024, CT chest, abdomen and pelvis 04/10/2024 TECHNIQUE: AP view of the chest FINDINGS: CHEST: Cardiac silhouette is upper limits of normal in size. Pulmonary emphysema. Mixed interstitial and alveolar opacities are redemonstrated within a peripheral predominant distribution there is progressive airspace consolidation throughout the right lung. No pneumothorax or large pleural effusion. Bones appear grossly intact. Gaseous distention of the large bowel. KUB: Gaseous distention of the large bowel. Pneumatosis of the colon better seen on prior CT. Contrast in the cecum. No urolith. No acute fracture. IMPRESSION: 1. Multifocal mixed interstitial and alveolar opacities redemonstrated, mildly progressed within the right lung. 2. Emphysema. 3. Gaseous distention of the colon is redemonstrated which may represent a colonic ileus. The previously noted pneumatosis is better seen on the prior study. Findings appear appears similar to the April 10, 2024 CT abdomen and pelvis. ACT 112: Negative or not required by law. The above report was generated using voice recognition software. It may contain grammatical, syntax or spelling errors. Electronically signed by: Jevon Redding M.D. 04/14/2024 5:56 PM Dictated: 04/14/241751 Transcribed: 04/14/241751 PG Care Time/CCT Total # of Minutes Spent Total Time Spent with Patient: Total time spent is greater than 50% in coordination of care (as documented) at patient's floor/unit and/or counseling patient: Coding Level of Care Code 72651 SUB INP/OBS CARE 25MIN Diagnoses Stercoral colitis K52.89
[2024-04-15] MEDS ORDERED: SODIUM PHOSPHATE 3 MMOL/1 ML INFUSION IV STA (12:59)
[2024-04-15] MEDS: SODIUM PHOSPHATE 15 MMOL in SODIUM CHLORIDE 0.9% 250 ML IV ONE (13:21)
--- NOTE | 2024-04-15 16:53 | CT Scan Report ---
CT SCAN OF THE CHEST WITHOUT IV CONTRAST CLINICAL HISTORY: Hypoxia COMPARISON STUDY: Chest x-ray dated 04/15/2024. Chest CT dated 04/10/2024. TECHNIQUE: CT scan of the thorax was performed from the thoracic inlet to the upper abdomen. Images are reviewed in the axial, sagittal, and coronal planes. IV contrast was not administered for this ex amination as per the referring clinician. A dose lowering technique was utilized adhering to the josselin Flores. The examination is degraded by motion artifact. FINDINGS: Thyroid: Atrophic. Thoracic aorta: There is atherosclerotic calcification of the thoracic aorta, which is normal in evelyn laxmi and demonstrates standard 3-vessel arch anatomy. Heart: The heart is mildly enlarged noting a small to moderate pericardial effusion. The coronary art eries are densely calcified. There is diminished attenuation of the cardiac blood pool as compared to the myocardium suggesting anemia. Lungs and pleural spaces: Evaluation of the lung parenchyma is compromised by motion artifact. Emphys ematous change is observed. Minimal secretions are noted in the trachea. Multifocal airspace consolid ation is seen throughout both lungs, most confluent in the right upper lobe and at the lung bases. Th is has increased from 04/10/2024. There are small to moderate pleural effusions. These have increased from 04/10/2024. Mediastinum: There are mildly enlarged mediastinal lymph nodes. A prevascular node measures 1.0 cm in short axis. A subcarinal node measures 2.1 cm in short axis. Zulma: Not well assessed without IV contrast. Axillae: There is no axillary lymphadenopathy. Upper abdomen: There is a small hiatal hernia. There is marked gaseous distention of the partially im aged colon. Skeletal structures: The skeletal structures are osteopenic. No lytic or blastic bony lesions are see n. Degenerative change is noted in the shoulders and spine. Soft tissues: There is body wall edema. IMPRESSION: 1. Cardiomegaly and emphysema noting a pericardial effusion. 2. Multifocal airspace consolidation is again seen throughout both lungs, and has progressed as arpan red to 04/10/2024. This likely represents pneumonia. Correlate clinically for evidence of superimposed pulmonary edema. Radiographic follow-up to resolution is recommended. 3. Small to moderate pleural effusions. These have increased in size from 04/10/2024. 4. Marked gaseous distention of the colon is noted in the upper abdomen. 5. Mildly enlarged mediastinal lymph nodes are nonspecific and likely reactive. 6. Advanced coronary artery atherosclerosis. 7. Additional findings as above. ACT 112: Negative or not required by law. Electronically signed by: Haresh Milligan M.D. 04/15/2024 4:50 PM
--- NOTE | 2024-04-15 17:19 | CT Scan Report ---
ABDOMEN AND PELVIS CT WITHOUT CONTRAST CT DOSE: 797.38 mGy.cm HISTORY: Acute sepsis Sepsis TECHNIQUE: Multiaxial CT images of the abdomen and pelvis were performed without contrast. A dose lo wering technique was utilized adhering to the principles of ALARA. COMPARISON STUDY: 04/11/2024, 04/10/2024 FINDINGS: Lung bases: The heart is mildly enlarged noting a small to moderate pericardial effusion. T he coronary arteries are densely calcified. There is diminished attenuation of the cardiac blood pool as compared to the myocardium suggesting anemia. Emphysema is noted. Increased size of the moderate pleural effusions with persistent bibasilar groundglass and consolidative opacities with intralobular septal thickening. A small hiatal hernia is noted. Liver: The unenhanced liver is normal in size, contour, and attenuation. There is no intrahepatic jose iary ductal dilatation. Gallbladder: There are calcified gallstones with no CT evidence of acute cholecystitis. Spleen: Normal in size and attenuation. Pancreas: The unenhanced pancreas is mildly atrophic and grossly unremarkable. Adrenal glands: Unremarkable. Kidneys: The unenhanced kidneys are normal in size and without hydronephrosis. There are no renal jose culi identified. There is no evidence of contour deforming renal mass lesion. Abdominal vasculature: The abdominal aorta is normal in course and caliber noting advanced atheroscle rotic calcification. Bowel: There is rectosigmoid fecal impaction and moderate to severe constipation. Noninflamed appendi x. There is progressive gaseous distention of the large bowel. There is irregular circumferential wal l thickening of the anorectal junction as seen on image 342 series 3. There is diffuse rectal wall th ickening. Large bowel loops measure up to 12.8 cm. Several loops of small bowel also are dilated maria esther uring up to 3-4 cm. Slightly decreased fecal retention in the rectum. Peritoneum: No intraperitoneal free air is clearly seen. There is no abdominal ascites. A fat- contai gunjan umbilical hernia is noted. Lymphadenopathy: None. Pelvic viscera: The bladder is decompressed around a Dumont catheter and not well assessed. The prosta te gland is mildly enlarged. Skeletal structures: The skeletal structures are osteopenic. There is moderate lumbosacral spondylosi s. No lytic or blastic lesions are seen. IMPRESSION: 1. There is progressive worsening of the large bowel distention with mildly decreased fecal retention in the rectum compared to the prior studies. Findings result in a functional large bowel obstruction There is irregular circumferential wall thickening of the anorectal junction which may also be secon geetha to the aforementioned proctitis and should be correlated with colonoscopy to exclude an obstruct ing mucosal mass. 2. No pneumatosis or pneumoperitoneum identified. 3. Moderate pleural effusions have increased in size. There are persistent bibasilar airspace opaciti es. 4. Cholelithiasis. 5. Additional findings as above. ACT 112: Negative or not required by law. The above report was generated using voice recognition software. It may contain grammatical, syntax o r spelling errors. Electronically signed by: Jevon Redding M.D. 04/15/2024 5:18 PM
[2024-04-15] MEDS: FUROSEMIDE INJ 20 MG/2 ML VIAL IV ONE (17:29)
[2024-04-15] MEDS: BUDESONIDE 0.5 MG/2 ML VIAL (PULMICORT) NEB SCH (20:07)
[2024-04-15] MEDS: FORMOTEROL 20 MCG/2 ML VIAL INH SCH (20:07)
[2024-04-15] MEDS: POTASSIUM CHLORIDE / WTR 10 MEQ/100 ML PLCT IV ONE (21:18)
[2024-04-15] MEDS: PANTOprazole 40 MG in SYRINGE 0 ML IV SCH (21:26)
[2024-04-15] MEDS: levETIRAcetam IV 500 MG in SODIUM CHLOR 0.9% MINI-B 100 ML IV SCH (23:07)
[2024-04-16 04:29] LABS: Hematocrit (blood only) 27.5 % (42.0-52.0); Hemoglobin 9.3 g/dl (14.0-18.0); Mean Corpuscular Hemoglobin 29.8 pg (25.0-34.0); Mean Corpuscular Hgb Conc 33.8 g/dL (32.0-36.0); Mean Corpuscular Volume 88.1 fL (80.0-100.0); Mean Platelet Volume 12.2 fL (9.4-12.4); Platelet Count 214 K/uL (130-400); RDW Coefficient of Variation 15.9 % (11.5-14.5); RDW Standard Deviation 50.8 fL (36.4-46.3); Red Blood Count 3.12 M/uL (4.70-6.10); White Blood Count 13.85 K/ul (4.8-10.8)
[2024-04-16 04:31] LABS: BUN Creatinine Ratio 26.7 (10-20); Calcium 8.2 mg/dl (8.6-10.3); Creatinine Clr Calc Pharmacy 140.8 ml/min; Magnesium 2.1 mg/dl (1.7-2.4); Potassium 3.2 mmol/L (3.5-5.1)
[2024-04-16 04:42] LABS: Prothrombin Time 54.5 Seconds (9.0-12.0)
[2024-04-16 04:45] LABS: INR 5.9 (0.9-1.1)
[2024-04-16] MEDS: POTASSIUM CHLORIDE / WTR 10 MEQ/100 ML PLCT IV SCH ×2 (05:35→08:34)
--- NOTE | 2024-04-16 07:40 | Critical Care Progress Note ---
Date of Service April 16, 2024 Assessment & Plan (1) Multifocal pneumonia: Plan Reason Critically Ill: 68 YOM admitted for pneumonia, stool impaction found to have pneumatosis on CT scan as well as elnarged colon- now transferred to ICU secondary to refractory hypotension. Neuro - hx of seizure disorder, schizoaffective disorder, glaucoma- no acute needs CAM ICU: Negative - Continue carbamazepine, keppra - For his mood stabilization continue with olanzapine - Continue eye drops for glaucoma Cardiac - 2D echo 04/11/2024: EF greater than 70%, mild concentric LVH, RV hyperdynamic with normal size -- Dyslipidemia Continue with rosuvastatin Respiratory - CT chest 04/10/2024 personally reviewed: Motion degraded study Patchy opacities appreciated bilaterally right upper right middle lingula as well as bilateral lower lobes Cardiomegaly With trace bilateral pleural effusion Minimal mediastinal and hilar lymphadenopathy --Acute hypoxic respiratory failure Aspiration pneumonia with multifocal opacities Bilateral pleural effusion Video swallow did show silent aspiration on 04/12/2024 Respiratory BioFire negative for everything on 04/10/2024 BNP 165 --COPD with emphysema On [place] at home GI - Severe constipation, stercoral colitis, pneumatosis intestinales, enlarged colon - Patient was started on stool softeners and enema on admission-s/p manual disimpaction morning of 04/11/2024 -Surgery has been consulted, No intervention from them for the time being -Will get GI involved - Appears to also have hx of IBS with frequent constipation - continue Linzess - Continue home PPI RENAL/LYTES - -- S/p CRISPIN Trend BUN/creatinine Avoid nephrotoxic medication ENDO - Hypothyroidism - No acute needs- continue home Synthroid HEME - -- Supratherapeutic INR Likely secondary to warfarin use Continue to monitor, if there is any bleeding then vitamin K will be thought of ID - -- Multilobar pneumonia Likely aspiration Procalcitonin 3.15 --> 0.58 Nasal MRSA negative --Prophylaxis VTE: IPC's GI: Pantoprazole Lines: Peripheral Diet: N.p.o. Plan: In/out: - 2.3 L, urine output 4275 Chest x-ray today from today shows improvement in infiltrates especially on the left side Will give 20 mg of Lasix today Potassium being replaced Will give another enema today Will get GI involved INR is 5.9 today Continue to monitor INR, will hold back on vitamin K Continue with antibiotics Will continue to keep the patient in the ICU as his respiratory status is still tenuous. If there is any worsening then intubation will be pursued Please note the above document was generated using voice recognition software. It may contain grammatical, syntax or spelling errors.Any formal questions or concerns about the content, text or information contained within the body of this dictation should be directly addressed to the provider for clarification. Admission and Anticipated Discharge Date Admission Date: April 10, 2024 Subjective Patient seen and examined at bedside. No acute distress, no adverse events overnight He was saturating 87-88% on 30 L, 60% FiO2 I went up on the flow to 35% Overall he says he is feeling better He is coughing and bringing up phlegm Denied any headache, no nausea, no vomiting He is n.p.o. He did get enema yesterday Review of Systems 2 Review of Systems: All systems reviewed & are unremarkable except as noted in Subjective Physical Exam 2 Physical Exam: Constitutional: No acute distress HEENT: EOMI, PERRLA Respiratory system: Decreased air entry bilaterally, positive rhonchi bilaterally, more on the right side, no wheeze, positive crackles bilaterally CVS: S1-S2 positive, no murmurs or gallops Abdomen: Soft, nondistended, positive bowel sounds x4, nontender, obese Extremities: +2 pulses bilaterally radialis/ dorsalis pedis, no cyanosis, no edema Neuro: Awake alert oriented to self Psych: Normal mood and affect G/U: Positive Dumont Skin: no rashes, warm and dry Lymphatic: no cervical or axillary lymphadenopathy Results & Data Results & Data Vital Signs (Past 12 Hours) Vital Signs Pulse Pulse Resp BP Pulse Ox Pulse Ox O2 Del Method 04/16/24 07:31 86 04/16/24 07:23 High Flow Nasal Cannula 04/16/24 07:00 114/67 04/16/24 06:54 85 28 H 91 04/16/24 06:51 85 26 H 98 High Flow Nasal Cannula 04/16/24 06:30 87 26 H 114/67 97 04/16/24 06:00 87 28 H 99 04/16/24 06:00 117/71 04/16/24 04:02 77 22 99 High Flow Nasal Cannula 04/16/24 04:00 82 26 H 103/69 97 High Flow Nasal Cannula 04/16/24 03:00 84 22 110/65 92 High Flow Nasal Cannula 04/16/24 02:00 85 23 121/75 92 High Flow Nasal Cannula 04/16/24 02:00 85 23 121/75 93 High Flow Nasal Cannula 04/16/24 02:00 94 04/16/24 01:00 81 24 110/71 94 High Flow Nasal Cannula 04/15/24 23:50 77 04/15/24 23:24 74 14 97 High Flow Nasal Cannula 04/15/24 23:00 87 19 106/70 92 High Flow Nasal Cannula 04/15/24 22:00 82 20 101/53 L 94 High Flow Nasal Cannula 04/15/24 21:00 86 26 H 129/78 96 High Flow Nasal Cannula 04/15/24 20:08 86 19 96 High Flow Nasal Cannula 04/15/24 20:00 90 24 109/75 90 High Flow Nasal Cannula O2 Del Method O2 Flow Rate O2 Flow Rate FiO2 04/16/24 07:31 04/16/24 07:23 30 60 04/16/24 07:00 04/16/24 06:54 04/16/24 06:51 30 60 04/16/24 06:30 30 60 04/16/24 06:00 04/16/24 06:00 04/16/24 04:02 30 60 04/16/24 04:00 30 60 04/16/24 03:00 30 60 04/16/24 02:00 30 60 04/16/24 02:00 30 60 04/16/24 02:00 High Flow Nasal Cannula 30 04/16/24 01:00 30 60 04/15/24 23:50 04/15/24 23:24 30 50 04/15/24 23:00 30 50 04/15/24 22:00 30 60 04/15/24 21:00 30 70 04/15/24 20:08 30 70 04/15/24 20:00 30 70 Laboratory Results 04/16/24 03:45 04/16/24 03:45 Coding Level of Care Code 51129 SUB INP/OBS CARE 3/50MIN Diagnoses Multifocal pneumonia J18.9
[2024-04-16] MEDS: FUROSEMIDE INJ 20 MG/2 ML VIAL IV ONE (07:48)
--- NOTE | 2024-04-16 07:54 | Hospitalist Progress Note ---
Date of Service April 16, 2024 Assessment & Plan (1) Sepsis: (2) Multifocal pneumonia: (3) Lactic acidosis: (4) Schizoaffective disorder: Plan: Multifocal pneumonia Septic shock--POA Lactic acidosis Acute hypoxic respiratory failure with hypoxia --Chest CT:Cardiomegaly and emphysema. Multifocal airspace consolidation is typical for pneumonia. Clinical correlation will be required and radiographic follow-up to resolution is recommended. Trace pleural effusions. Nonspecific pneumatosis intestinalis is seen in the partially imaged left colon. Mildly enlarged mediastinal lymph nodes are nonspecific and likely reactive. --ECHO: Mild concentric LVH. Left ventricle is hyperdynamic. EF> 70%. No regional wall motion abnormality. No significant valvular pathology. Trace circumferential pericardial effusion. --Video Swallow:Silent aspiration with thin liquid barium. Multiple consistency laryngeal penetration. -- BioFire negative --Blood cultures negative to date Procalcitonin elevated 3.1 -> 1.2 -> 0.5 Nasal MRSA negative Vancomycin discontinued Levophed discontinued Continue azithromycin, Zosyn Received IV fluids, nebs PRN Appreciate critical care input Had swallow evaluation on 04/12 Continue aspiration precautions 04/14 CXR and KUB repeated- cont. to show multifocal pna, colon dilation. lactate normal and procalcitonin down to 1.2. Sputum cultx results - normal nellie. Pt cont. on zosyn and azithro. 04/15/24 Pt's oxygen requirement has increased - overnight placed on highflow oxygen. Discussed with pulmonary/ pitch flaker -> plan to transfer to ICU for further eval and care 04/16 Currently on 9L of suppl. O2 Fecal retention Stercoral colitis Pneumatosis intestinalis of left colon ? Obstipation --CT ABD:There is rectosigmoid fecal reaction and moderate to severe constipation with diffuse colonic distention. There is evidence of a nonspecific proctocolitis, likely stercoral. There is nonspecific pneumatosis intestinalis of left colon as detailed above, which may be related to stercoral proctocolitis. This could also potentially be seen in the setting of bowel ischemia. Clinical correlation will be essential. The small bowel loops normal caliber with no evidence of high-grade obstruction. --S/P manual disimpaction on 04/11/2024 --Lactic acidosis improved/ normal 1.1 -- received IV fluids --Appreciate surgery input Continue bowel regimen KUB repeated as abd. cont. to be distended, shows colonic distention - Pt is passing gas, having liquid BMs. -> re-discussed w/ surgery - Per surgery - It is expected that the patient will continue to show bowel dilation on radiology imaging for quite sometime. No acute surgical intervention indicated CT abdomen obtained in ICU (04/15/24)- 1. There is progressive worsening of the large bowel distention with mildly decreased fecal retention in the rectum compared to the prior studies. Findings result in a functional large bowel obstruction There is irregular circumferential wall thickening of the anorectal junction which may also be secondary to the aforementioned proctitis and should be correlated with colonoscopy to exclude an obstructing mucosal mass. 2. No pneumatosis or pneumoperitoneum identified. GI was consulted (04/16/24) - He may have a relative obstruction due to his fecal impaction with stercoral colitis. As long as he is moving his bowels and passing gas there usually isn't a risk of perforation and we don't typically see perforation in chronic issues--although we don't have prior Xrays to compare to, he says he has been battling with his bowel movements for four years. It would be dangerous to try any type of unprepped exam of his rectum to assess this "thickened" area in his rectum. When he is stable from an overall medical standpoint and can tolerate aggressive enema/laxative treatment then that is how I would proceed. I agree with surgery that his colon is likely to stay dilated for a while and may always be dilated. 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 The remaining mesenteric arteries are patent. -- Continue aspirin, statin Appreciate vascular surgery input:Discussed on 04/11/2024: Recommends long-term anticoagulation No surgical intervention needed currently as per vascular surgery --Continue IV heparin -> now stopped as INR supratherap. Started on Coumadin - now on hold as INR supratherap. Monitor INR Acute kidney injury Likely multifactorial secondary to dehydration, septic shock Cr improved with IV fluids Monitor renal function Avoid nephrotoxic agents as able Resolved Hypokalemia Replete electrolytes as needed Monitor Schizoaffective disorder Normal Tegretol levels - Continue on Zyprexa, Tegretol Seizure disorder -Continue Keppra and carbamazepine Chronic constipation ? IBS on Linzess Continue Linzess Also started on bowel regimen Encouraged to ambulate COPD -Continue home inhalers Peripheral vascular disease Hyperlipidemia -Chronic, stable continue home meds Hypothyroidism Elevated TSH, normal free T4 -Continue levothyroxine Will need repeat thyroid function test as outpatient GERD -Continue home PPI Glaucoma -patient reports that he is legally blind, assist with ambulation DVT Px: IV Heparin+ Coumadin (now on hold as INR supratherap.) CODE STATUS: Full code Admission and Anticipated Discharge Date Admission Date: April 10, 2024 Subjective Patient seen in follow up of pneumonia, stercoral colitis Pt seen in ICU + cough with sputum (villareal color + red) Had swallow evaluation -> silent aspiration Denies any abdominal pain, chest pain, dyspnea Currently on 9L suppl. O2 Abdomen distended, CT obtained yesterday -> GI consulted Review of Systems Review of Systems: All systems reviewed & are unremarkable except as noted in Subjective Physical Exam Physical Exam: General Appearance:Thin, Frail, Chronically ill appearing, no apparent distress but on 9L of suppl. O2 Head: normocephalic, Atraumatic Eyes: normal inspection Neck: supple Respiratory/Chest: + rhonchi, crackles, No accessory muscle use Cardiovascular: S1, S2, No murmur Abdomen/GI:Soft, Non tender, mildly distended, bowel sounds present Extremities/Musculoskeletal:normal inspection, no edema Neurologic/Psych:AAOX3, grossly no focal neurological deficits Skin: warm, dry Results & Data Results & Data Vital Signs (Past 12 Hours) Vital Signs Pulse Pulse Resp BP Pulse Ox Pulse Ox O2 Del Method 04/16/24 07:31 86 04/16/24 07:23 High Flow Nasal Cannula 04/16/24 07:00 114/67 04/16/24 06:54 85 28 H 91 04/16/24 06:51 85 26 H 98 High Flow Nasal Cannula 04/16/24 06:30 87 26 H 114/67 97 04/16/24 06:00 87 28 H 99 04/16/24 06:00 117/71 04/16/24 04:02 77 22 99 High Flow Nasal Cannula 04/16/24 04:00 82 26 H 103/69 97 High Flow Nasal Cannula 04/16/24 03:00 84 22 110/65 92 High Flow Nasal Cannula 04/16/24 02:00 85 23 121/75 92 High Flow Nasal Cannula 04/16/24 02:00 85 23 121/75 93 High Flow Nasal Cannula 04/16/24 02:00 94 04/16/24 01:00 81 24 110/71 94 High Flow Nasal Cannula 04/15/24 23:50 77 04/15/24 23:24 74 14 97 High Flow Nasal Cannula 04/15/24 23:00 87 19 106/70 92 High Flow Nasal Cannula 04/15/24 22:00 82 20 101/53 L 94 High Flow Nasal Cannula 04/15/24 21:00 86 26 H 129/78 96 High Flow Nasal Cannula 04/15/24 20:08 86 19 96 High Flow Nasal Cannula 04/15/24 20:00 90 24 109/75 90 High Flow Nasal Cannula O2 Del Method O2 Flow Rate O2 Flow Rate FiO2 04/16/24 07:31 04/16/24 07:23 30 60 04/16/24 07:00 04/16/24 06:54 04/16/24 06:51 30 60 04/16/24 06:30 30 60 04/16/24 06:00 04/16/24 06:00 04/16/24 04:02 30 60 04/16/24 04:00 30 60 04/16/24 03:00 30 60 04/16/24 02:00 30 60 04/16/24 02:00 30 60 04/16/24 02:00 High Flow Nasal Cannula 30 04/16/24 01:00 30 60 04/15/24 23:50 04/15/24 23:24 30 50 04/15/24 23:00 30 50 04/15/24 22:00 30 60 04/15/24 21:00 30 70 04/15/24 20:08 30 70 04/15/24 20:00 30 70 Laboratory Results 04/16/24 04/15/24 04/15/24 Range/Units 03:45 22:38 09:12 WBC 13.85 H (4.8-10.8) K/ul RBC 3.12 L (4.70-6.10) M/uL Hgb 9.3 L (14.0-18.0) g/dl Hct 27.5 L (42.0-52.0) % MCV 88.1 (80.0-100.0) fL MCH 29.8 (25.0-34.0) pg MCHC 33.8 (32.0-36.0) g/dL RDW Std Deviation 50.8 H (36.4-46.3) fL RDW Coeff of Yadira 15.9 H (11.5-14.5) % Plt Count 214 (130-400) K/uL MPV 12.2 (9.4-12.4) fL PT 54.5 H (9.0-12.0) Seconds INR 5.9 H* (0.9-1.1) Heparin Anti-Xa, Unfract (0.3-0.7) IU/ml Sodium 137 (136-145) mmol/L Potassium 3.2 L (3.5-5.1) mmol/L Chloride 102 (98-107) mmol/L Carbon Dioxide 27 (21-32) mmol/L Anion Gap 8 (3-11) BUN 16 (6-23) mg/dl Creatinine 0.60 (0.6-1.4) mg/dl Est Cr Clr Drug Dosing 140.8 ml/min eGFR 106.46 BUN/Creatinine Ratio 26.7 H (10-20) Glucose 87 (70-99(Fasting)) mg/dl POC Glucose 83 (70-99) mg/dl Lactate 1.3 (0.4-2.0) mmol/L Calcium 8.2 L (8.6-10.3) mg/dl Phosphorus (2.5-4.9) mg/dl Magnesium 2.1 (1.7-2.4) mg/dl B-Natriuretic Peptide 165 H (0-100) pg/ml Procalcitonin 0.58 H (0-0.5) ng/ml 04/15/24 Range/Units 06:55 WBC 15.86 H (4.8-10.8) K/ul RBC 3.31 L (4.70-6.10) M/uL Hgb 9.9 L (14.0-18.0) g/dl Hct 30.0 L (42.0-52.0) % MCV 90.6 (80.0-100.0) fL MCH 29.9 (25.0-34.0) pg MCHC 33.0 (32.0-36.0) g/dL RDW Std Deviation 53.1 H (36.4-46.3) fL RDW Coeff of Yadira 16.3 H (11.5-14.5) % Plt Count 194 (130-400) K/uL MPV 12.1 (9.4-12.4) fL PT 41.5 H (9.0-12.0) Seconds INR 4.4 H (0.9-1.1) Heparin Anti-Xa, Unfract 0.29 L (0.3-0.7) IU/ml Sodium 135 L (136-145) mmol/L Potassium 2.9 L (3.5-5.1) mmol/L Chloride 98 (98-107) mmol/L Carbon Dioxide 29 (21-32) mmol/L Anion Gap 8 (3-11) BUN 17 (6-23) mg/dl Creatinine 0.69 (0.6-1.4) mg/dl Est Cr Clr Drug Dosing 122.4 ml/min eGFR 102.06 BUN/Creatinine Ratio 24.6 H (10-20) Glucose 84 (70-99(Fasting)) mg/dl POC Glucose (70-99) mg/dl Lactate (0.4-2.0) mmol/L Calcium 8.3 L (8.6-10.3) mg/dl Phosphorus 2.1 L (2.5-4.9) mg/dl Magnesium 2.2 (1.7-2.4) mg/dl B-Natriuretic Peptide (0-100) pg/ml Procalcitonin (0-0.5) ng/ml Medications Administered Current Inpatient Medications Acetaminophen (Acetaminophen 325 Mg Tab) 650 mg PO Q4H PRN PRN Reason: Moderate Pain (Scale 4, 5, 6) Stop: 05/10/24 16:06 Last Admin: 04/13/24 14:29 Dose: 650 mg Albuterol (Albuterol Hfa 8 Gm Inhaler) 1 puffs INH Q4H PRN PRN Reason: Shortness Of Breath Stop: 05/11/24 03:36 Last Admin: 04/15/24 03:19 Dose: 1 puffs Albuterol (Albut/Ipratrop 3mg/0.5mg Neb 3 Ml Vial) 3 ml NEB Q6R PRN; Protocol PRN Reason: Shortness Of Breath Or Wheezing Stop: 05/15/24 07:34 Last Admin: 04/15/24 07:53 Dose: 3 ml Aspirin (Aspirin 81 Mg Ectab) 81 mg PO DAILY [facility] Stop: 05/11/24 08:59 Last Admin: 04/15/24 10:35 Dose: Not Given Benzonatate (Benzonatate 100 Mg Capsule) 100 mg PO TID [facility] Stop: 05/10/24 16:06 Last Admin: 04/15/24 21:22 Dose: Not Given Brimonidine Tartrate (Brimonidine Tartrate 0.2% 5ml) 1 drops OP TID KATHRIN Stop: 05/10/24 20:59 Last Admin: 04/15/24 21:23 Dose: 1 drops Budesonide (Budesonide 0.5 Mg/2 Ml Vial (Pulmicort)) 0.5 mg NEB BIDR [facility] Stop: 05/15/24 18:59 Last Admin: 04/16/24 06:51 Dose: 0.5 mg Carbamazepine (Carbamazepine 200 Mg Tablet) 200 mg PO BID [facility] Stop: 05/10/24 20:59 Last Admin: 04/15/24 21:23 Dose: Not Given Docusate Sodium (Docusate Sodium 100 Mg Cap) 100 mg PO BID [facility] Stop: 05/11/24 20:59 Last Admin: 04/15/24 21:23 Dose: Not Given Formoterol Fumarate (Formoterol 20 Mcg/2 Ml Vial) 20 mcg INH BIDR [facility] Stop: 05/15/24 18:59 Last Admin: 04/16/24 06:51 Dose: 20 mcg Guaifenesin (Guaifenesin 600 Mg Tabcr) 1,200 mg PO Q12 [facility] Stop: 05/10/24 20:59 Last Admin: 04/15/24 21:23 Dose: Not Given Azithromycin 250 mg/ Dextrose 252.5 mls @ 125 mls/hr IV Q24H [facility] Stop: 04/16/24 19:02 Last Infusion: 04/15/24 20:00 Dose: Infused Piperacillin Sod/Tazobactam Sod (Zosyn) 4.5 gm in 100 mls @ 25 mls/hr IV Q8H [facility]; Protocol Stop: 04/17/24 21:59 Last Admin: 04/16/24 05:44 Dose: 25 mls/hr Levetiracetam 500 mg/ Sodium (Chloride) 105 mls @ 420 mls/hr IV Q12H [facility] Stop: 05/15/24 22:59 Last Infusion: 04/15/24 23:25 Dose: Infused Pantoprazole Sodium 40 mg/ (Syringe) 10 mls @ 5 mls/min IV BID KATHRIN Stop: 05/15/24 21:14 Last Admin: 04/15/24 21:26 Dose: 5 mls/min Potassium Chloride (K Isaías / Wtr) 10 meq in 100 mls @ 100 mls/hr IV Q1H KATHRIN Stop: 04/16/24 11:44 Levetiracetam (Levetiracetam 500 Mg Tab) 500 mg PO BID KATHRIN Stop: 05/11/24 11:59 Last Admin: 04/15/24 10:35 Dose: Not Given Levothyroxine Sodium (Levothyroxine Sodium 175 Mcg Tablet) 175 mcg PO DAILYBB KATHRIN Stop: 05/11/24 06:29 Last Admin: 04/16/24 05:55 Dose: Not Given Linaclotide (Linaclotide 145 Mcg Capsule) 145 mcg PO DAILY KATHRIN Stop: 05/11/24 01:04 Last Admin: 04/15/24 10:35 Dose: Not Given Magnesium Hydroxide (Magnesium Hydroxide Susp 30 Ml Udc) 30 ml PO Q8H KATHRIN Stop: 05/10/24 16:29 Last Admin: 04/16/24 07:36 Dose: Not Given Olanzapine (Olanzapine 5 Mg Tablet) 15 mg PO HS KATHRIN Stop: 05/10/24 20:59 Last Admin: 04/15/24 21:24 Dose: Not Given Ondansetron HCl (Ondansetron Inj 2 Mg/Ml 2 Ml Vial) 4 mg IV Q4H PRN PRN Reason: Nausea And Vomiting Stop: 05/10/24 16:06 Pantoprazole Sodium (Pantoprazole 40 Mg Tab) 40 mg PO BID KATHRIN Stop: 05/10/24 20:59 Last Admin: 04/15/24 21:24 Dose: Not Given Potassium Chloride (Potassium Chloride 10 Meq Tabcr) 10 meq PO BID KATHRIN Stop: 05/12/24 20:59 Last Admin: 04/15/24 21:24 Dose: Not Given Rosuvastatin Calcium (Rosuvastatin Calcium 10 Mg Tab) 10 mg PO DAILY KATHRIN Stop: 05/11/24 08:59 Last Admin: 04/15/24 10:36 Dose: Not Given Sodium Chloride (Sodium Chlor 7% 4 Ml Neb) 4 ml NEB BIDR [facility] Stop: 05/10/24 18:59 Last Admin: 04/16/24 06:51 Dose: 4 ml Warfarin Sodium (Warfarin Sod 5 Mg Tab) 5 mg PO DAILY@1600 [facility] Stop: 05/12/24 15:59 Last Admin: 04/14/24 16:27 Dose: 5 mg
--- NOTE | 2024-04-16 07:54 | XRay Report ---
XR chest 1V portable HISTORY: 68 years-old Male f/u acute shortness of breath COMPARISON: CT abdomen and pelvis 04/15/2024, chest radiograph 04/15/2024 TECHNIQUE: AP view the chest FINDINGS: Emphysema with multifocal mixed interstitial and alveolar opacities are again noted. There is slightl y improved aeration of the lungs compared to yesterday's study. No pneumothorax or pleural effusion. Heart size is upper limits of normal. Prominent gaseous distention of the colon redemonstrated, brenna r seen on yesterday's CT exam. IMPRESSION: Persistent extensive mixed interstitial and alveolar opacities with slight improvement of the lungs compared to yesterday's study. ACT 112: Negative or not required by law. The above report was generated using voice recognition software. It may contain grammatical, syntax o r spelling errors. Electronically signed by: Jevon Redding M.D. 04/16/2024 7:53 AM
[2024-04-16] MEDS: SOD PHOSPHATE/SOD BIPHOSPHATE ENEMA 132 ML BTL PR STA (08:13)
--- NOTE | 2024-04-16 10:10 | Gastrointestinal Consultation ---
Date of Consultation April 16, 2024 Assessment & Plan (1) Fecal impaction: By definition he is not obstructed as he is passing flatus and having bowel movements. He may have a relative obstruction due to his fecal impaction with stercoral colitis. As long as he is moving his bowels and passing gas there usually isn't a risk of perforation and we don't typically see perforation in chronic issues--although we don't have prior Xrays to compare to, he says he has been battling with his bowel movements for four years. It would be dangerous to try any type of umprepped exam of his rectum to assess this "thickened" area in his rectum. When he is stable from an overall medical standpoint and can t olerate aggressive enema/laxative treatment then that is how I would proceed. I agree with surgery that his colon is likely to stay dilated for a while and may always be dilated. We should follow him clinically and he has no symptoms from his colon problems now. History of Present Illness Reason for Consultation: large bowel obstruction Attending Physician: Jose Miguel Barker MD History of Present Illness 68 year old man in ICU with respiratory issues. Surgery has been following for "dilated colon with fecal impaction" and now GI has been consulted. I am unable to follow the history the patient gives me as to its rambling nature and inability to completely understand what he is telling me. He spent most of the time talking about "aura seizures". He did tell me he has been battling his bowel movements for four years with a lot of loose stools "due to his constipation". Patient had a bowel movement shortly before I came into his ICU room. He denies abdominal pain. He is having multiple bowel movements daily, usually loose. He passes gas frequently as well. He says he has had a "lower GI" at some point in his rambling history Allergies Allergy/AdvReac Type Severity Reaction Status Date / Time No Known Allergies Allergy Verified 04/10/24 16:36 Home Medications Medication Instructions Recorded Confirmed Type albuterol 90 mcg/actuation aerosol 90 mcg inhalation Q4H PRN 04/10/24 04/10/24 History inhaler Shortness Of Breath aspirin 81 mg capsule 81 mg PO DAILY 04/10/24 04/10/24 History brimonidine 0.2 % eye drops 1 drp ophthalmic (eye) TID 04/10/24 04/10/24 History calcium polycarbophil 625 mg 1,250 mg PO BID 04/10/24 04/10/24 History tablet (FiberCon) carbamazepine 200 mg tablet 200 mg PO BID 04/10/24 04/10/24 History cholecalciferol (vitamin D3) 25 25 mcg PO DAILY 04/10/24 04/10/24 History mcg (1,000 unit) tablet ciclesonide 80 mcg/actuation 1 puff inhalation Q12H 04/10/24 04/10/24 History aerosol inhaler (Alvesco) levetiracetam 500 mg tablet 500 mg PO BID 04/10/24 04/10/24 History levothyroxine 175 mcg tablet 175 mcg PO DAILY 04/10/24 04/10/24 History linaclotide 145 mcg capsule 145 mcg PO DAILY 04/10/24 04/10/24 History (Linzess) olanzapine 15 mg tablet 15 mg PO HS 04/10/24 04/10/24 History omeprazole 40 mg capsule,delayed 40 mg PO BID 04/10/24 04/10/24 History release rosuvastatin 10 mg tablet 10 mg PO DAILY 04/10/24 04/10/24 History Patient History Medical History Chronic constipation GERD (gastroesophageal reflux disease) HLD (hyperlipidemia) COPD (chronic obstructive pulmonary disease) Social History Smoking Status: Former smoker Hx Alcohol Use: No Hx Substance Use: No Preferred Language: Latvian Communication Ability: Unable Toddler Nanny Required: No Beliefs That Will Affect Care: None Current Living Situation: Other Current Living Situation Comment: Detention Assistive Devices: None Review of Systems Review of Systems: Unobtainable due to cognitive status Physical Exam Constitutional: + ill appearing, + thin and + disheveled Neck: trachea midline, no thyromegaly Respiratory: normal respiratory effort, lungs clear to auscultation Cardiovascular: RRR, no murmur, no edema Gastrointestinal (Abdomen): Inspection/Auscultation: + abdomen distended and normal bowel sounds Percussion/Palpation: abdomen soft; abdomen nontender Results & Data Vital Signs (Past 12 Hours) Vital Signs Pulse Pulse Resp BP Pulse Ox Pulse Ox O2 Del Method 10/12/24 09:00 86 28 H 122/70 93 04/16/24 08:00 85 33 H 92 04/16/24 08:00 106/67 04/16/24 07:31 86 04/16/24 07:23 High Flow Nasal Cannula 04/16/24 07:00 114/67 04/16/24 06:54 85 28 H 91 04/16/24 06:51 85 26 H 98 High Flow Nasal Cannula 04/16/24 06:30 87 26 H 114/67 97 04/16/24 06:00 87 28 H 99 04/16/24 06:00 117/71 04/16/24 04:02 77 22 99 High Flow Nasal Cannula 04/16/24 04:00 82 26 H 103/69 97 High Flow Nasal Cannula 04/16/24 03:00 84 22 110/65 92 High Flow Nasal Cannula 04/16/24 02:00 85 23 121/75 92 High Flow Nasal Cannula 04/16/24 02:00 85 23 121/75 93 High Flow Nasal Cannula 04/16/24 02:00 94 04/16/24 01:00 81 24 110/71 94 High Flow Nasal Cannula 04/15/24 23:50 77 04/15/24 23:24 74 14 97 High Flow Nasal Cannula 04/15/24 23:00 87 19 106/70 92 High Flow Nasal Cannula O2 Del Method O2 Flow Rate O2 Flow Rate FiO2 04/16/24 09:00 35 60 04/16/24 08:00 04/16/24 08:00 04/16/24 07:31 04/16/24 07:23 30 60 04/16/24 07:00 04/16/24 06:54 04/16/24 06:51 30 60 04/16/24 06:30 30 60 04/16/24 06:00 04/16/24 06:00 04/16/24 04:02 30 60 04/16/24 04:00 30 60 04/16/24 03:00 30 60 04/16/24 02:00 30 60 04/16/24 02:00 30 60 04/16/24 02:00 High Flow Nasal Cannula 30 04/16/24 01:00 30 60 04/15/24 23:50 04/15/24 23:24 30 50 04/15/24 23:00 30 50 Laboratory Results 04/16/24 04/15/24 04/15/24 Range/Units 03:45 22:38 09:12 WBC 13.85 H (4.8-10.8) K/ul RBC 3.12 L (4.70-6.10) M/uL Hgb 9.3 L (14.0-18.0) g/dl Hct 27.5 L (42.0-52.0) % MCV 88.1 (80.0-100.0) fL MCH 29.8 (25.0-34.0) pg MCHC 33.8 (32.0-36.0) g/dL RDW Std Deviation 50.8 H (36.4-46.3) fL RDW Coeff of Yadira 15.9 H (11.5-14.5) % Plt Count 214 (130-400) K/uL MPV 12.2 (9.4-12.4) fL PT 54.5 H (9.0-12.0) Seconds INR 5.9 H* (0.9-1.1) Sodium 137 (136-145) mmol/L Potassium 3.2 L (3.5-5.1) mmol/L Chloride 102 (98-107) mmol/L Carbon Dioxide 27 (21-32) mmol/L Anion Gap 8 (3-11) BUN 16 (6-23) mg/dl Creatinine 0.60 (0.6-1.4) mg/dl Est Cr Clr Drug Dosing 140.8 ml/min eGFR 106.46 BUN/Creatinine Ratio 26.7 H (10-20) Glucose 87 (70-99(Fasting)) mg/dl POC Glucose 83 (70-99) mg/dl Calcium 8.2 L (8.6-10.3) mg/dl Magnesium 2.1 (1.7-2.4) mg/dl Procalcitonin 0.58 H (0-0.5) ng/ml Diagnostic Findings Chest X-Ray 04/10/24 11:41 XR chest 1V portable CLINICAL HISTORY: Sepsis COMPARISON STUDY: No previous studies for comparison. FINDINGS: Multifocal bilateral airspace opacities are greater within the right lung. There is interstitial thickening. No pneumothorax or pleural effusion is identified. Cardiomediastinal silhouette is normal. Prominent gas-filled loops of bowel within the upper abdomen are present. There may be a large amount of stool within the splenic flexure of the colon. IMPRESSION: 1. Extensive bilateral airspace opacities, greater within the right lung, and interstitial thickening. The findings favor multifocal pneumonia. Asymmetric pulmonary edema could appear similar although is considered less likely. Radiographic follow-up to ensure resolution is recommended. 2. Distended loops of bowel within the upper abdomen, likely reflecting colonic loops. Suspected large amount of stool within the splenic flexure of the colon. ACT 112: Negative or not required by law. Electronically signed by: Jaun Bullock M.D. 04/10/2024 12:[address] 04/10/24 11:41 CT OF THE HEAD WITHOUT CONTRAST CLINICAL HISTORY: Altered mental status. COMPARISON STUDY: No previous studies for comparison. CT DOSE: 1016.05 mGy.cm TECHNIQUE: Helical axial images of the head were obtained without IV contrast. Automated exposure control was utilized for the study. A dose lowering technique was utilized adhering to the principles of ALARA. FINDINGS: This exam is mildly compromised by motion artifact. No acute intracranial hemorrhage, midline shift or mass effect is present. Ventricular system is unremarkable. Basal cisterns are patent. There are no extra-axial collections. Asymmetric bilateral basal ganglia calcification is present. There are no findings to suggest acute dural sinus thrombosis or acute territorial infarct. White matter hypodensity suggests small vessel disease. There are no calvarial fractures. Mastoid air cells are clear. Mild sinus opacification is present. IMPRESSION: No acute intracranial findings. Exam mildly compromised by motion artifact. ACT 112: Negative or not required by law. Electronically signed by: Jaun Bullock M.D. 04/10/2024 12:46 PM Abdomen/Pelvis CT 04/10/24 14:07 CT SCAN OF THE ABDOMEN AND PELVIS WITHOUT IV CONTRAST CLINICAL HISTORY: Sepsis. COMPARISON STUDY: No priors. TECHNIQUE: CT scan of the abdomen and pelvis is performed from the lung bases to the proximal femora. Images are reviewed in the axial, sagittal, and coronal planes. IV contrast was not administered for this examination as per the referring clinician. Note that the examination was performed in significantly suboptimal fashion without oral and IV contrast. A dose lowering technique was utilized adhering to the principles of ALARA. CT DOSE: 580.3 mGy.cm FINDINGS: Lung bases: The heart is mildly enlarged noting a small to moderate pericardial effusion. The coronary arteries are densely calcified. There is diminished attenuation of the cardiac blood pool as compared to the myocardium suggesting anemia. Emphysema is noted. Multiple airspace consolidation is seen at the lung bases. There are trace pleural effusions. A small hiatal hernia is noted. Liver: The unenhanced liver is normal in size, contour, and attenuation. There is no intrahepatic biliary ductal dilatation. Gallbladder: There are calcified gallstones with no CT evidence of acute cholecystitis. Spleen: Normal in size and attenuation. Pancreas: The unenhanced pancreas is mildly atrophic and grossly unremarkable. Adrenal glands: Unremarkable. Kidneys: The unenhanced kidneys are normal in size and without hydronephrosis. There are no renal calculi identified. There is no evidence of contour deforming renal mass lesion. Abdominal vasculature: The abdominal aorta is normal in course and caliber noting advanced atherosclerotic calcification. Bowel: There is rectosigmoid fecal impaction and moderate to severe constipation. The rectal wall is thickened with surrounding infiltration. The rectum measures up to 10.7 cm in diameter. There is nonspecific pneumatosis intestinalis seen involving the left colon, greatest involving the splenic flexure and proximal descending colon. The small bowel loops are normal in caliber. The appendix is normal as visualized. Peritoneum: No intraperitoneal free air is clearly seen. There is no abdominal ascites. A fat-containing umbilical hernia is noted. Lymphadenopathy: None. Pelvic viscera: The bladder is decompressed around a Dumont catheter and not well assessed. The prostate gland is mildly enlarged. Skeletal structures: The skeletal structures are osteopenic. There is moderate lumbosacral spondylosis. No lytic or blastic lesions are seen. IMPRESSION: 1. Significant suboptimal examination without oral and IV contrast. 2. There is rectosigmoid fecal reaction and moderate to severe constipation with diffuse colonic distention. 3. There is evidence of a nonspecific proctocolitis, likely stercoral. 4. There is nonspecific pneumatosis intestinalis of left colon as detailed above, which may be related to stercoral proctocolitis. This could also potentially be seen in the setting of bowel ischemia. Clinical correlation will be essential. 5. The small bowel loops normal caliber with no evidence of high-grade obstruction. 6. Cardiomegaly and emphysema. 7. Cholelithiasis. 8. Additional findings as above. ACT 112: Negative or not required by law. Electronically signed by: Haresh Milligan M.D. 04/10/2024 3:[address] 04/10/24 14:07 CT SCAN OF THE CHEST WITHOUT IV CONTRAST CLINICAL HISTORY: Pneumonia. COMPARISON STUDY: Chest x-ray dated 04/10/2024. TECHNIQUE: CT scan of the thorax was performed from the thoracic inlet to the upper abdomen. Images are reviewed in the axial, sagittal, and coronal planes. IV contrast was not administered for this examination as per the referring clinician. A dose lowering technique was utilized adhering to the principles of ALARA. The Examination is significantly compromised by motion artifact. FINDINGS: Thyroid: Not well visualized due to motion artifact. Thoracic aorta: There is atherosclerotic calcification of the thoracic aorta, which is normal in caliber and demonstrates standard 3-vessel arch anatomy. Heart: The heart is mildly enlarged noting a small to moderate pericardial effusion. The coronary arteries are densely calcified. There is diminished attenuation of the cardiac blood pool as compared to the myocardium suggesting anemia. Lungs and pleural spaces: Evaluation of the lung parenchyma is compromised by motion artifact. Emphysematous changes observed. Secretions are noted in the distal trachea and right mainstem bronchus. Multifocal airspace consolidation is seen throughout both lungs, most confluent in the right upper lobe and at the lung bases. There are trace pleural effusions. Mediastinum: There are mildly enlarged mediastinal lymph nodes. A prevascular node measures 1.2 cm in short axis. A subcarinal node measures 2.4 cm in short axis. Zulma: Not well assessed without IV contrast. Axillae: There is no axillary lymphadenopathy. Upper abdomen: Calcified gallstones are partially imaged. There is a small hiatal hernia. Pneumatosis intestinalis is seen within the partially imaged left colon. Skeletal structures: The skeletal structures are osteopenic. No lytic or blastic bony lesions are seen. Degenerative change is noted in the shoulders and spine. IMPRESSION: 1. Cardiomegaly and emphysema. 2. Multifocal airspace consolidation is typical for pneumonia. Clinical correlation will be required and radiographic follow-up to resolution is re commended. 3. Trace pleural effusions. 4. Nonspecific pneumatosis intestinalis is seen in the partially imaged left colon. 5. Mildly enlarged mediastinal lymph nodes are nonspecific and likely reactive. 6. Advanced coronary artery atherosclerosis. 7. Additional findings as above. ACT 112: Negative or not required by law. Electronically signed by: Haresh Milligan M.D. 04/10/2024 3:41 PM Abdomen/Pelvis CTA 04/11/24 03:07 CR Exam(s): CTA ABDOMEN + PELVIS With Contrast IV Amt: 118 ml opti 320 EXAM: CT Angiography Abdomen and Pelvis With Intravenous Contrast CLINICAL HISTORY: Evaluate for ischemic bowel and measure colon size. TECHNIQUE: Axial computed tomographic angiography images of the abdomen and pelvis with intravenous contrast. CTDI is 26.12 mGy and DLP is 973.94 mGy-cm. Automated exposure control was utilized for the study. A dose lowering technique was utilized adhering to the principles of ALARA. MIP reconstructed images were created and reviewed. CONTRAST: Patient received 118 ml opti 320 of IV contrast COMPARISON: No relevant prior studies available. FINDINGS: VASCULATURE: Aorta: Mild atherosclerosis of the aorta. No abdominal aortic aneurysm. No dissection. Celiac trunk and mesenteric arteries: There is mild atherosclerosis of the origin of the celiac trunk, SMA and MARÍA ELENA without significant stenosis. Renal arteries: There is atherosclerosis of the origin of both renal arteries without significant stenosis. Iliac arteries: There is atherosclerosis of the bilateral common, internal and external iliac arteries without significant stenosis. 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 The remaining mesenteric arteries are patent. Lung bases: See below. Pleural space: Small bilateral pleural effusions with bibasilar airspace opacities concerning for multifocal pneumonia and/or aspiration. Mediastinum: Small hiatal hernia. ABDOMEN: Liver: Unremarkable. No mass. Gallbladder and bile ducts: Unremarkable. No calcified stones. No ductal dilation. Pancreas: Unremarkable. No ductal dilation. No mass. Spleen: Unremarkable. No splenomegaly. Adrenals: Unremarkable. No mass. Kidneys and ureters: Unremarkable. No hydronephrosis. No solid mass. Stomach and bowel: There is marked distention of the colon with significant stool in the rectal there is thickening of the wall of the rectosigmoid colon. Fluid-filled distended small bowel without definitive evidence of obstruction. PELVIS: Appendix: Normal appendix. Bladder: A Dumont catheter is present. Reproductive: Unremarkable as visualized. ABDOMEN and PELVIS: Intraperitoneal space: Unremarkable. No significant fluid collection. No free air. Bones/joints: There are degenerative changes of the spine. No acute fracture. No dislocation. Soft tissues: Unremarkable. Lymph nodes: Unremarkable. No enlarged lymph nodes. IMPRESSION: 1. 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 The remaining mesenteric arteries are patent. 2. There is marked distention of the colon with significant stool in the rectal there is thickening of the wall of the rectosigmoid colon. This is concerning for nonspecific colitis, stercoral colitis to be included on the differential. The rectosigmoid colon measures 10 cm in diameter. 3. Small bilateral pleural effusions with bibasilar airspace opacities concerning for multifocal pneumonia and/or aspiration. 4. Fluid-filled distended small bowel without definitive evidence of obstruction. 5. Small hiatal hernia. Communications: Verify Receipt Electronically signed by: Valerie Lu MD 04/11/24 06:44 AM Videofluoroscopic Swallow 04/12/24 10:30 FL video swallow CLINICAL HISTORY: 68 years-old Male with assess for silent aspiration. Dysphagia TECHNIQUE: Video fluoroscopic evaluation of swallowing was performed in the AP and lateral projections by the speech pathology staff. The patient is fed varying consistencies of barium. FLUOROSCOPY TIME: 2.21 minutes. 3,359 images. 7.72 mGy COMPARISON STUDY: None. FINDINGS: There is abnormal hyoid excursion and epiglottic deflection. Silent aspiration with thin liquid barium. Laryngeal penetration with nectar, pudding and solid consistencies. IMPRESSION: 1. Silent aspiration with thin liquid barium. Multiple consistency laryngeal penetration. 2. Please see the speech pathologist report for detailed findings and recommendations. ACT 112: Negative or not required by law. Electronically signed by: Jevon Redding M.D. 04/12/2024 12:29 PM Chest X-Ray 04/13/24 07:00 XR chest 1V portable HISTORY: 68 years-old Male hypoxia acute hypoxia COMPARISON: Chest CT 04/10/2024 TECHNIQUE: AP view of the chest FINDINGS: Cardiac silhouette is upper limits of normal in size. Pulmonary emphysema. Mixed interstitial and alveolar opacities are redemonstrated within a peripheral predominant distribution, mildly progressed from the comparison CT. No pneumothorax or large pleural effusion. Bones appear grossly intact. IMPRESSION: 1. Progressive peripheral predominant bilateral multilobar airspace opacities compatible with multifocal pneumonia, possible viral etiology. 2. Pulmonary emphysema. 3. No pneumothorax. ACT 112: Negative or not required by law. The above report was generated using voice recognition software. It may contain grammatical, syntax or spelling errors. Electronically signed by: Jevon Redding M.D. 04/13/2024 7:22 AM KUB X-Ray 04/14/24 17:14 XR chest 1V portable, XR KUB/Abdomen 1 view HISTORY: 68 years-old Male hypoxia, follow up pna acute shortness of breath COMPARISON: Chest radiograph 04/13/2024, CT chest, abdomen and pelvis 04/10/2024 TECHNIQUE: AP view of the chest FINDINGS: CHEST: Cardiac silhouette is upper limits of normal in size. Pulmonary emphysema. Mixed interstitial and alveolar opacities are redemonstrated within a peripheral predominant distribution there is progressive airspace consolidation throughout the right lung. No pneumothorax or large pleural effusion. Bones appear grossly intact. Gaseous distention of the large bowel. KUB: Gaseous distention of the large bowel. Pneumatosis of the colon better seen on prior CT. Contrast in the cecum. No urolith. No acute fracture. IMPRESSION: 1. Multifocal mixed interstitial and alveolar opacities redemonstrated, mildly progressed within the right lung. 2. Emphysema. 3. Gaseous distention of the colon is redemonstrated which may represent a colonic ileus. The previously noted pneumatosis is better seen on the prior study. Findings appear appears similar to the April 10, 2024 CT abdomen and pelvis. ACT 112: Negative or not required by law. The above report was generated using voice recognition software. It may contain grammatical, syntax or spelling errors. Electronically signed by: Jevon Redding M.D. 04/14/2024 5:56 PM Chest X-Ray 04/14/24 17:27 XR chest 1V portable, XR KUB/Abdomen 1 view HISTORY: 68 years-old Male hypoxia, follow up pna acute shortness of breath COMPARISON: Chest radiograph 04/13/2024, CT chest, abdomen and pelvis 04/10/2024 TECHNIQUE: AP view of the chest FINDINGS: CHEST: Cardiac silhouette is upper limits of normal in size. Pulmonary emphysema. Mixed interstitial and alveolar opacities are redemonstrated within a peripheral predominant distribution there is progressive airspace consolidation throughout the right lung. No pneumothorax or large pleural effusion. Bones appear grossly intact. Gaseous distention of the large bowel. KUB: Gaseous distention of the large bowel. Pneumatosis of the colon better seen on prior CT. Contrast in the cecum. No urolith. No acute fracture. IMPRESSION: 1. Multifocal mixed interstitial and alveolar opacities redemonstrated, mildly progressed within the right lung. 2. Emphysema. 3. Gaseous distention of the colon is redemonstrated which may represent a colonic ileus. The previously noted pneumatosis is better seen on the prior study. Findings appear appears similar to the April 10, 2024 CT abdomen and pelvis. ACT 112: Negative or not required by law. The above report was generated using voice recognition software. It may contain grammatical, syntax or spelling errors. Electronically signed by: Jevon Redding M.D. 04/14/2024 5:56 PM Chest X-Ray 04/15/24 03:30 XR chest 1V portable HISTORY: 68 years-old Male sob acute shortness of breath COMPARISON: 04/14/2024 TECHNIQUE: AP view of the chest FINDINGS: Emphysema with multifocal mixed interstitial and alveolar opacities redemonstrated, generally unchanged. No pneumothorax or pleural effusion. Heart size is upper limits of normal. Prominent gaseous distention of the colon redemonstrated. IMPRESSION: No significant change of the extensive mixed interstitial and alveolar opacities. ACT 112: Negative or not required by law. The above report was generated using voice recognition software. It may contain grammatical, syntax or spelling errors. Electronically signed by: Jevon Redding M.D. 04/15/2024 6:[address] 04/15/24 15:47 CT SCAN OF THE CHEST WITHOUT IV CONTRAST CLINICAL HISTORY: Hypoxia COMPARISON STUDY: Chest x-ray dated 04/15/2024. Chest CT dated 04/10/2024. TECHNIQUE: CT scan of the thorax was performed from the thoracic inlet to the upper abdomen. Images are reviewed in the axial, sagittal, and coronal planes. IV contrast was not administered for this examination as per the referring clinician. A dose lowering technique was utilized adhering to the principles of ALARA. The examination is degraded by motion artifact. FINDINGS: Thyroid: Atrophic. Thoracic aorta: There is atherosclerotic calcification of the thoracic aorta, which is normal in caliber and demonstrates standard 3-vessel arch anatomy. Heart: The heart is mildly enlarged noting a small to moderate pericardial effusion. The coronary arteries are densely calcified. There is diminished attenuation of the cardiac blood pool as compared to the myocardium suggesting anemia. Lungs and pleural spaces: Evaluation of the lung parenchyma is compromised by motion artifact. Emphysematous change is observed. Minimal secretions are noted in the trachea. Multifocal airspace consolidation is seen throughout both lungs, most confluent in the right upper lobe and at the lung bases. This has increased from 04/10/2024. There are small to moderate pleural effusions. These have increased from 04/10/2024. Mediastinum: There are mildly enlarged mediastinal lymph nodes. A prevascular node measures 1.0 cm in short axis. A subcarinal node measures 2.1 cm in short axis. Zulma: Not well assessed without IV contrast. Axillae: There is no axillary lymphadenopathy. Upper abdomen: There is a small hiatal hernia. There is marked gaseous distention of the partially imaged colon. Skeletal structures: The skeletal structures are osteopenic. No lytic or blastic bony lesions are seen. Degenerative change is noted in the shoulders and spine. Soft tissues: There is body wall edema. IMPRESSION: 1. Cardiomegaly and emphysema noting a pericardial effusion. 2. Multifocal airspace consolidation is again seen throughout both lungs, and has progressed as compared to 04/10/2024. This likely represents pneumonia. Correlate clinically for evidence of superimposed pulmonary edema. Radiographic follow-up to resolution is recommended. 3. Small to moderate pleural effusions. These have increased in size from 04/10/2024. 4. Marked gaseous distention of the colon is noted in the upper abdomen. 5. Mildly enlarged mediastinal lymph nodes are nonspecific and likely reactive. 6. Advanced coronary artery atherosclerosis. 7. Additional findings as above. ACT 112: Negative or not required by law. Electronically signed by: Haersh Milligan M.D. 04/15/2024 4:50 PM Abdomen/Pelvis CT 04/15/24 16:[address] WITHOUT CONTRAST CT DOSE: 797.38 mGy.cm HISTORY: Acute sepsis Sepsis TECHNIQUE: Multiaxial CT images of the abdomen and pelvis were performed without contrast. A dose lowering technique was utilized adhering to the principles of ALARA. COMPARISON STUDY: 04/11/2024, 04/10/2024 FINDINGS: Lung bases: The heart is mildly enlarged noting a small to moderate pericardial effusion. The coronary arteries are densely calcified. There is diminished attenuation of the cardiac blood pool as compared to the myocardium suggesting anemia. Emphysema is noted. Increased size of the moderate pleural effusions with persistent bibasilar groundglass and consolidative opacities with intralobular septal thickening. A small hiatal hernia is noted. Liver: The unenhanced liver is normal in size, contour, and attenuation. There is no intrahepatic biliary ductal dilatation. Gallbladder: There are calcified gallstones with no CT evidence of acute cholecystitis. Spleen: Normal in size and attenuation. Pancreas: The unenhanced pancreas is mildly atrophic and grossly unremarkable. Adrenal glands: Unremarkable. Kidneys: The unenhanced kidneys are normal in size and without hydronephrosis. There are no renal calculi identified. There is no evidence of contour deforming renal mass lesion. Abdominal vasculature: The abdominal aorta is normal in course and caliber noting advanced atherosclerotic calcification. Bowel: There is rectosigmoid fecal impaction and moderate to severe constipation. Noninflamed appendix. There is progressive gaseous distention of the large bowel. There is irregular circumferential wall thickening of the anorectal junction as seen on image 342 series 3. There is diffuse rectal wall thickening. Large bowel loops measure up to 12.8 cm. Several loops of small bowel also are dilated measuring up to 3-4 cm. Slightly decreased fecal reten tion in the rectum. Peritoneum: No intraperitoneal free air is clearly seen. There is no abdominal ascites. A fat- containing umbilical hernia is noted. Lymphadenopathy: None. Pelvic viscera: The bladder is decompressed around a Dumont catheter and not well assessed. The prostate gland is mildly enlarged. Skeletal structures: The skeletal structures are osteopenic. There is moderate lumbosacral spondylosis. No lytic or blastic lesions are seen. IMPRESSION: 1. There is progressive worsening of the large bowel distention with mildly decreased fecal retention in the rectum compared to the prior studies. Findings result in a functional large bowel obstruction There is irregular circumferential wall thickening of the anorectal junction which may also be secondary to the aforementioned proctitis and should be correlated with colonoscopy to exclude an obstructing mucosal mass. 2. No pneumatosis or pneumoperitoneum identified. 3. Moderate pleural effusions have increased in size. There are persistent bibasilar airspace opacities. 4. Cholelithiasis. 5. Additional findings as above. ACT 112: Negative or not required by law. The above report was generated using voice recognition software. It may contain grammatical, syntax or spelling errors. Electronically signed by: Jevon Redding M.D. 04/15/2024 5:18 PM Chest X-Ray 04/16/24 07:00 XR chest 1V portable HISTORY: 68 years-old Male f/u acute shortness of breath COMPARISON: CT abdomen and pelvis 04/15/2024, chest radiograph 04/15/2024 TECHNIQUE: AP view the chest FINDINGS: Emphysema with multifocal mixed interstitial and alveolar opacities are again noted. There is slightly improved aeration of the lungs compared to yesterday's study. No pneumothorax or pleural effusion. Heart size is upper limits of normal. Prominent gaseous distention of the colon redemonstrated, better seen on yesterday's CT exam. IMPRESSION: Persistent extensive mixed interstitial and alveolar opacities with slight improvement of the lungs compared to yesterday's study. ACT 112: Negative or not required by law. The above report was generated using voice recognition software. It may contain grammatical, syntax or spelling errors. Electronically signed by: Jevon Redding M.D. 04/16/2024 7:53 AM
[2024-04-17 04:44] LABS: BUN Creatinine Ratio 26.7 (10-20); Calcium 8.4 mg/dl (8.6-10.3); Creatinine Clr Calc Pharmacy 135.7 ml/min; Magnesium 2.1 mg/dl (1.7-2.4); Phosphorus 2.9 mg/dl (2.5-4.9); Potassium 3.5 mmol/L (3.5-5.1)
[2024-04-17 04:56] LABS: Hematocrit (blood only) 28.5 % (42.0-52.0); Hemoglobin 9.6 g/dl (14.0-18.0); Mean Corpuscular Hemoglobin 30.2 pg (25.0-34.0); Mean Corpuscular Hgb Conc 33.7 g/dL (32.0-36.0); Mean Corpuscular Volume 89.6 fL (80.0-100.0); Mean Platelet Volume 11.8 fL (9.4-12.4); Platelet Count 274 K/uL (130-400); RDW Coefficient of Variation 15.9 % (11.5-14.5); RDW Standard Deviation 51.7 fL (36.4-46.3); Red Blood Count 3.18 M/uL (4.70-6.10); White Blood Count 14.12 K/ul (4.8-10.8)
[2024-04-17 04:56] LABS: INR 5.2 (0.9-1.1); Prothrombin Time 48.7 Seconds (9.0-12.0)
[2024-04-17] MEDS: FUROSEMIDE INJ 20 MG/2 ML VIAL IV ONE (07:59)
[2024-04-17] MEDS: POTASSIUM CHLORIDE / WTR 10 MEQ/100 ML PLCT IV SCH (07:59)
--- NOTE | 2024-04-17 08:21 | Critical Care Progress Note ---
Date of Service April 17, 2024 Assessment & Plan (1) Multifocal pneumonia: Plan Reason Critically Ill: 68 YOM admitted for pneumonia, stool impaction found to have pneumatosis on CT scan as well as elnarged colon- now transferred to ICU secondary to refractory hypotension. Neuro - hx of seizure disorder, schizoaffective disorder, glaucoma- no acute needs CAM ICU: Negative - Continue carbamazepine, keppra - For his mood stabilization continue with olanzapine - Continue eye drops for glaucoma Cardiac - 2D echo 04/11/2024: EF greater than 70%, mild concentric LVH, RV hyperdynamic with normal size -- Dyslipidemia Continue with rosuvastatin Respiratory - CT chest 04/10/2024 personally reviewed: Motion degraded study Patchy opacities appreciated bilaterally right upper right middle lingula as well as bilateral lower lobes Cardiomegaly With trace bilateral pleural effusion Minimal mediastinal and hilar lymphadenopathy --Acute hypoxic respiratory failure Aspiration pneumonia with multifocal opacities Bilateral pleural effusion Video swallow did show silent aspiration on 04/12/2024 Respiratory BioFire negative for everything on 04/10/2024 BNP 165 --COPD with emphysema On [place] at home GI - Severe constipation, stercoral colitis, pneumatosis intestinales, enlarged colon - Patient was started on stool softeners and enema on admission-s/p manual disimpaction morning of 04/11/2024 -Surgery has been consulted, No intervention from them for the time being -Will get GI involved - Appears to also have hx of IBS with frequent constipation - continue Linzess - Continue home PPI RENAL/LYTES - -- S/p CRISPIN Trend BUN/creatinine Avoid nephrotoxic medication ENDO - Hypothyroidism - No acute needs- continue home Synthroid HEME - -- Supratherapeutic INR Likely secondary to warfarin use Continue to monitor, if there is any bleeding then vitamin K will be thought of ID - -- Multilobar pneumonia Likely aspiration Procalcitonin 3.15 --> 0.58 Nasal MRSA negative --Prophylaxis VTE: IPC's GI: Pantoprazole Lines: Peripheral Diet: N.p.o. Plan: In/out: -1400, urine output 2575, +1.8 L since coming to the hospital Potassium being replaced 20 mg of Lasix to be given today INR is trending down. No need to give vitamin K Hemodynamically stable to be downgrade to medical floor Please note the above document was generated using voice recognition software. It may contain grammatical, syntax or spelling errors.Any formal questions or concerns about the content, text or information contained within the body of this dictation should be directly addressed to the provider for clarification. Admission and Anticipated Discharge Date Admission Date: April 10, 2024 Subjective Patient seen and examined at bedside. No acute distress, no adverse events overnight He was saturating 91-92% on 9 L. His MAP was 67 at the time of examination Has been coughing up phlegm. Using incentive spirometry as well as flutter valve Denied any chest pain, no abdominal pain Was asking for food Review of Systems 2 Review of Systems: All systems reviewed & are unremarkable except as noted in Subjective Physical Exam 2 Physical Exam: Constitutional: No acute distress HEENT: EOMI, PERRLA Respiratory system: Decreased air entry bilaterally, positive rhonchi bilaterally, more on the right side, no wheeze, positive crackles bilaterally CVS: S1-S2 positive, no murmurs or gallops Abdomen: Soft, minimal distention, positive bowel sounds x4, nontender, obese Extremities: +2 pulses bilaterally radialis/ dorsalis pedis, no cyanosis, no edema Neuro: Awake alert oriented to self Psych: Normal mood and affect G/U: Positive Dumont Skin: no rashes, warm and dry Lymphatic: no cervical or axillary lymphadenopathy Results & Data Results & Data Vital Signs (Past 12 Hours) Vital Signs Pulse Pulse Resp BP Pulse Ox Pulse Ox O2 Del Method 04/17/24 07:20 87 20 92 Nasal Cannula 04/17/24 02:00 95 04/17/24 01:00 81 24 125/74 94 High Flow Nasal Cannula 04/16/24 23:00 81 04/16/24 22:00 84 26 H 124/73 91 High Flow Nasal Cannula 04/16/24 21:00 83 26 H 135/79 96 High Flow Nasal Cannula 04/16/24 20:30 High Flow Nasal Cannula 04/16/24 20:24 84 18 100 Nasal Cannula O2 Del Method O2 Flow Rate O2 Flow Rate 04/17/24 07:20 9 04/17/24 02:00 High Flow Nasal Cannula 7 04/17/24 01:00 7 04/16/24 23:00 04/16/24 22:00 7 04/16/24 21:00 7 04/16/24 20:30 7 04/16/24 20:24 7 Laboratory Results 04/17/24 04:05 04/17/24 04:05 Coding Level of Care Code 64840 SUB INP/OBS CARE 3/50MIN Diagnoses Multifocal pneumonia J18.9
--- NOTE | 2024-04-17 10:11 | Gastroenterology Progress Note ---
Date of Service April 17, 2024 Assessment & Plan (1) Fecal impaction: Plan: Discussed with irrigation equipment installer--he tells me he is having issues with aspiration and is not well enough for aggressive bowel regimen at this time. Will follow and step in when patients overall health allows agressive regimen. I feel this is a chronic problem as he is on linzess and he has no pain despite having a large rectal impaction. Admission and Anticipated Discharge Date Admission Date: April 10, 2024 Subjective Difficult to get history from him as I find it difficult to understand him. He initially said he was doing bad and I think he was indicating his breathing. I asked about his abdomen and he says it doesn't bother him. He says he had his last bowel movement yesterday. Physical Exam Constitutional: + ill appearing and + disheveled Results & Data Vital Signs (Past 12 Hours) Vital Signs Temp Pulse Pulse Resp BP Pulse Ox Pulse Ox 04/17/24 09:18 88 27 H 92 04/17/24 08:00 102 H 33 H 92 04/17/24 08:00 83 04/17/24 08:00 36.5 C 04/17/24 07:20 87 20 92 04/17/24 07:01 120/78 04/17/24 07:01 120/78 04/17/24 07:01 120/78 04/17/24 07:00 80 15 97 04/17/24 02:00 95 04/17/24 01:00 81 24 125/74 94 04/16/24 23:00 81 O2 Del Method O2 Del Method O2 Flow Rate O2 Flow Rate 04/17/24 09:18 04/17/24 08:00 04/17/24 08:00 04/17/24 08:00 04/17/24 07:20 Nasal Cannula 9 04/17/24 07:01 04/17/24 07:01 04/17/24 07:01 04/17/24 07:00 04/17/24 02:00 High Flow Nasal Cannula 7 04/17/24 01:00 High Flow Nasal Cannula 7 04/16/24 23:00
--- NOTE | 2024-04-17 12:39 | Hospitalist Progress Note ---
Date of Service April 17, 2024 Assessment & Plan (1) Sepsis: (2) Multifocal pneumonia: (3) Lactic acidosis: (4) Schizoaffective disorder: Plan: Multifocal pneumonia Septic shock--POA Lactic acidosis Acute hypoxic respiratory failure with hypoxia --Chest CT:Cardiomegaly and emphysema. Multifocal airspace consolidation is typical for pneumonia. Clinical correlation will be required and radiographic follow-up to resolution is recommended. Trace pleural effusions. Nonspecific pneumatosis intestinalis is seen in the partially imaged left colon. Mildly enlarged mediastinal lymph nodes are nonspecific and likely reactive. --ECHO: Mild concentric LVH. Left ventricle is hyperdynamic. EF> 70%. No regional wall motion abnormality. No significant valvular pathology. Trace circumferential pericardial effusion. --Video Swallow:Silent aspiration with thin liquid barium. Multiple consistency laryngeal penetration. -- BioFire negative --Blood cultures negative to date Procalcitonin elevated 3.1 -> 1.2 -> 0.5 Nasal MRSA negative Vancomycin discontinued Levophed discontinued Continue azithromycin, Zosyn Received IV fluids, nebs PRN Appreciate critical care input Had swallow evaluation on 04/12 Continue aspiration precautions 04/14 CXR and KUB repeated- cont. to show multifocal pna, colon dilation. lactate normal and procalcitonin down to 1.2. Sputum cultx results - normal nellie. Pt cont. on zosyn and azithro. 04/15/24 Pt's oxygen requirement has increased - overnight placed on highflow oxygen. Discussed with pulmonary/ software engineer -> plan to transfer to ICU for further eval and care 04/16 -04/17 Currently on 9L of suppl. O2 Fecal retention Stercoral colitis Pneumatosis intestinalis of left colon ? Obstipation --CT ABD:There is rectosigmoid fecal reaction and moderate to severe constipation with diffuse colonic distention. There is evidence of a nonspecific proctocolitis, likely stercoral. There is nonspecific pneumatosis intestinalis of left colon as detailed above, which may be related to stercoral proctocolitis. This could also potentially be seen in the setting of bowel ischemia. Clinical correlation will be essential. The small bowel loops normal caliber with no evidence of high-grade obstruction. --S/P manual disimpaction on 04/11/2024 --Lactic acidosis improved/ normal 1.1 -- received IV fluids --Appreciate surgery input Continue bowel regimen KUB repeated as abd. cont. to be distended, shows colonic distention - Pt is passing gas, having liquid BMs. -> re-discussed w/ surgery - Per surgery - It is expected that the patient will continue to show bowel dilation on radiology imaging for quite sometime. No acute surgical intervention indicated CT abdomen obtained in ICU (04/15/24)- 1. There is progressive worsening of the large bowel distention with mildly decreased fecal retention in the rectum compared to the prior studies. Findings result in a functional large bowel obstruction There is irregular circumferential wall thickening of the anorectal junction which may also be secondary to the aforementioned proctitis and should be correlated with colonoscopy to exclude an obstructing mucosal mass. 2. No pneumatosis or pneumoperitoneum identified. GI was consulted (04/16/24) - He may have a relative obstruction due to his fecal impaction with stercoral colitis. As long as he is moving his bowels and passing gas there usually isn't a risk of perforation and we don't typically see perforation in chronic issues--although we don't have prior Xrays to compare to, he says he has been battling with his bowel movements for four years. It would be dangerous to try any type of unprepped exam of his rectum to assess this "thickened" area in his rectum. When he is stable from an overall medical standpoint and can tolerate aggressive enema/laxative treatment then that is how I would proceed. I agree with surgery that his colon is likely to stay dilated for a while and may always be dilated. 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 The remaining mesenteric arteries are patent. -- Continue aspirin, statin Appreciate vascular surgery input:Discussed on 04/11/2024: Recommends long-term anticoagulation No surgical intervention needed currently as per vascular surgery --Continue IV heparin -> now stopped as INR supratherap. Started on Coumadin - now on hold as INR supratherap. Monitor INR Acute kidney injury Likely multifactorial secondary to dehydration, septic shock Cr improved with IV fluids Monitor renal function Avoid nephrotoxic agents as able Resolved Hypokalemia Replete electrolytes as needed Monitor Schizoaffective disorder Normal Tegretol levels - Continue on Zyprexa, Tegretol Seizure disorder -Continue Keppra and carbamazepine Chronic constipation ? IBS on Linzess Continue Linzess Also started on bowel regimen Encouraged to ambulate COPD -Continue home inhalers Peripheral vascular disease Hyperlipidemia -Chronic, stable continue home meds Hypothyroidism Elevated TSH, normal free T4 -Continue levothyroxine Will need repeat thyroid function test as outpatient GERD -Continue home PPI Glaucoma -patient reports that he is legally blind, assist with ambulation DVT Px: IV Heparin+ Coumadin (now on hold as INR supratherap.) CODE STATUS: Full code Admission and Anticipated Discharge Date Admission Date: April 10, 2024 Subjective Patient seen in follow up of pneumonia, stercoral colitis Pt seen in ICU -> plan to downgrade to PCU, discussed w/ software engineer + cough with sputum (villareal color + red) Had swallow evaluation -> silent aspiration. Now NPO - another speech eval -> to advance diet Denies any abdominal pain, chest pain, dyspnea Currently on 9L suppl. O2 Review of Systems Review of Systems: All systems reviewed & are unremarkable except as noted in Subjective Physical Exam Physical Exam: General Appearance:Thin, Frail, Chronically ill appearing, no apparent distress but on 9L of suppl. O2 Head: normocephalic, Atraumatic Eyes: normal inspection Neck: supple Respiratory/Chest: + rhonchi, crackles, No accessory muscle use Cardiovascular: S1, S2, No murmur Abdomen/GI:Soft, Non tender, mildly distended, bowel sounds present Extremities/Musculoskeletal:normal inspection, no edema Neurologic/Psych:AAOX3, grossly no focal neurological deficits Skin: warm, dry Results & Data Results & Data Vital Signs (Past 12 Hours) Vital Signs Temp Pulse Pulse Resp BP Pulse Ox Pulse Ox 04/17/24 09:18 88 27 H 92 04/17/24 08:16 04/17/24 08:00 102 H 33 H 92 04/17/24 08:00 83 04/17/24 08:00 36.5 C 04/17/24 07:20 87 20 92 04/17/24 07:01 120/78 04/17/24 07:01 120/78 04/17/24 07:01 120/78 04/17/24 07:00 80 15 97 04/17/24 02:00 95 04/17/24 01:00 81 24 125/74 94 O2 Del Method O2 Del Method O2 Flow Rate O2 Flow Rate 04/17/24 09:18 04/17/24 08:16 Nasal Cannula 9 04/17/24 08:00 04/17/24 08:00 04/17/24 08:00 04/17/24 07:20 Nasal Cannula 9 04/17/24 07:01 04/17/24 07:01 04/17/24 07:01 04/17/24 07:00 04/17/24 02:00 High Flow Nasal Cannula 7 04/17/24 01:00 High Flow Nasal Cannula 7 Laboratory Results 04/17/24 04/17/24 04/17/24 Range/Units 04:05 04:04 02:37 WBC 14.12 H (4.8-10.8) K/ul RBC 3.18 L (4.70-6.10) M/uL Hgb 9.6 L (14.0-18.0) g/dl Hct 28.5 L (42.0-52.0) % MCV 89.6 (80.0-100.0) fL MCH 30.2 (25.0-34.0) pg MCHC 33.7 (32.0-36.0) g/dL RDW Std Deviation 51.7 H (36.4-46.3) fL RDW Coeff of Ydaira 15.9 H (11.5-14.5) % Plt Count 274 (130-400) K/uL MPV 11.8 (9.4-12.4) fL PT 48.7 H (9.0-12.0) Seconds INR 5.2 H (0.9-1.1) Sodium 138 (136-145) mmol/L Potassium 3.5 (3.5-5.1) mmol/L Chloride 104 (98-107) mmol/L Carbon Dioxide 27 (21-32) mmol/L Anion Gap 7 (3-11) BUN 16 (6-23) mg/dl Creatinine 0.60 (0.6-1.4) mg/dl Est Cr Clr Drug Dosing 135.7 ml/min eGFR 106.46 BUN/Creatinine Ratio 26.7 H (10-20) Glucose 84 (70-99(Fasting)) mg/dl POC Glucose 87 (70-99) mg/dl Calcium 8.4 L (8.6-10.3) mg/dl Phosphorus 2.9 (2.5-4.9) mg/dl Magnesium 2.1 (1.7-2.4) mg/dl 04/16/24 Range/Units 20:19 WBC (4.8-10.8) K/ul RBC (4.70-6.10) M/uL Hgb (14.0-18.0) g/dl Hct (42.0-52.0) % MCV (80.0-100.0) fL MCH (25.0-34.0) pg MCHC (32.0-36.0) g/dL RDW Std Deviation (36.4-46.3) fL RDW Coeff of Yadira (11.5-14.5) % Plt Count (130-400) K/uL MPV (9.4-12.4) fL PT (9.0-12.0) Seconds INR (0.9-1.1) Sodium (136-145) mmol/L Potassium (3.5-5.1) mmol/L Chloride (98-107) mmol/L Carbon Dioxide (21-32) mmol/L Anion Gap (3-11) BUN (6-23) mg/dl Creatinine (0.6-1.4) mg/dl Est Cr Clr Drug Dosing ml/min eGFR BUN/Creatinine Ratio (10-20) Glucose (70-99(Fasting)) mg/dl POC Glucose 82 (70-99) mg/dl Calcium (8.6-10.3) mg/dl Phosphorus (2.5-4.9) mg/dl Magnesium (1.7-2.4) mg/dl Medications Administered Current Inpatient Medications Acetaminophen (Acetaminophen 325 Mg Tab) 650 mg PO Q4H PRN PRN Reason: Moderate Pain (Scale 4, 5, 6) Stop: 05/10/24 16:06 Last Admin: 04/13/24 14:29 Dose: 650 mg Albuterol (Albuterol Hfa 8 Gm Inhaler) 1 puffs INH Q4H PRN PRN Reason: Shortness Of Breath Stop: 05/11/24 03:36 Last Admin: 04/15/24 03:19 Dose: 1 puffs Albuterol (Albut/Ipratrop 3mg/0.5mg Neb 3 Ml Vial) 3 ml NEB Q6R PRN; Protocol PRN Reason: Shortness Of Breath Or Wheezing Stop: 05/15/24 07:34 Last Admin: 04/15/24 07:53 Dose: 3 ml Aspirin (Aspirin 81 Mg Ectab) 81 mg PO DAILY [facility] Stop: 05/11/24 08:59 Last Admin: 04/17/24 08:59 Dose: Not Given Benzonatate (Benzonatate 100 Mg Capsule) 100 mg PO TID [facility] Stop: 05/10/24 16:06 Last Admin: 04/17/24 08:42 Dose: 100 mg Brimonidine Tartrate (Brimonidine Tartrate 0.2% 5ml) 1 drops OP TID [facility] Stop: 05/10/24 20:59 Last Admin: 04/17/24 08:42 Dose: 1 drops Budesonide (Budesonide 0.5 Mg/2 Ml Vial (Pulmicort)) 0.5 mg NEB BIDR [facility] Stop: 05/15/24 18:59 Last Admin: 04/17/24 07:19 Dose: 0.5 mg Carbamazepine (Carbamazepine 200 Mg Tablet) 200 mg PO BID [facility] Stop: 05/10/24 20:59 Last Admin: 04/17/24 08:45 Dose: 200 mg Docusate Sodium (Docusate Sodium 100 Mg Cap) 100 mg PO BID [facility] Stop: 05/11/24 20:59 Last Admin: 04/17/24 08:45 Dose: 100 mg Formoterol Fumarate (Formoterol 20 Mcg/2 Ml Vial) 20 mcg INH BIDR [facility] Stop: 05/15/24 18:59 Last Admin: 04/17/24 07:19 Dose: 20 mcg Guaifenesin (Guaifenesin 600 Mg Tabcr) 1,200 mg PO Q12 [facility] Stop: 05/10/24 20:59 Last Admin: 04/17/24 08:45 Dose: 1,200 mg Piperacillin Sod/Tazobactam Sod (Zosyn) 4.5 gm in 100 mls @ 25 mls/hr IV Q8H [facility]; Protocol Stop: 04/17/24 21:59 Last Infusion: 04/17/24 10:00 Dose: Infused Levetiracetam 500 mg/ Sodium (Chloride) 105 mls @ 420 mls/hr IV Q12H [facility] Stop: 05/15/24 22:59 Last Admin: 04/17/24 10:56 Dose: 105 mls/hr Pantoprazole Sodium 40 mg/ (Syringe) 10 mls @ 5 mls/min IV BID [facility] Stop: 05/15/24 21:14 Last Admin: 04/17/24 08:46 Dose: 5 mls/min Levetiracetam (Levetiracetam 500 Mg Tab) 500 mg PO BID [facility] Stop: 05/11/24 11:59 Last Admin: 04/15/24 10:35 Dose: Not Given Levothyroxine Sodium (Levothyroxine Sodium 175 Mcg Tablet) 175 mcg PO DAILYBB [facility] Stop: 05/11/24 06:29 Last Admin: 04/17/24 06:12 Dose: Not Given Linaclotide (Linaclotide 145 Mcg Capsule) 145 mcg PO DAILY [facility] Stop: 05/11/24 01:04 Last Admin: 04/17/24 09:00 Dose: Not Given Magnesium Hydroxide (Magnesium Hydroxide Susp 30 Ml Udc) 30 ml PO Q8H [facility] Stop: 05/10/24 16:29 Last Admin: 04/17/24 08:42 Dose: 30 ml Olanzapine (Olanzapine 5 Mg Tablet) 15 mg PO HS [facility] Stop: 05/10/24 20:59 Last Admin: 04/16/24 20:56 Dose: Not Given Ondansetron HCl (Ondansetron Inj 2 Mg/Ml 2 Ml Vial) 4 mg IV Q4H PRN PRN Reason: Nausea And Vomiting Stop: 05/10/24 16:06 Pantoprazole Sodium (Pantoprazole 40 Mg Tab) 40 mg PO BID [facility] Stop: 05/10/24 20:59 Last Admin: 04/15/24 21:24 Dose: Not Given Potassium Chloride (Potassium Chloride 10 Meq Tabcr) 10 meq PO BID [facility] Stop: 05/12/24 20:59 Last Admin: 04/15/24 21:24 Dose: Not Given Rosuvastatin Calcium (Rosuvastatin Calcium 10 Mg Tab) 10 mg PO DAILY [facility] Stop: 05/11/24 08:59 Last Admin: 04/17/24 09:00 Dose: Not Given Sodium Chloride (Sodium Chlor 7% 4 Ml Neb) 4 ml NEB BIDR [facility] Stop: 05/10/24 18:59 Last Admin: 04/17/24 07:19 Dose: 4 ml Warfarin Sodium (Warfarin Sod 5 Mg Tab) 5 mg PO DAILY@1600 [facility] Stop: 05/12/24 15:59 Last Admin: 04/14/24 16:27 Dose: 5 mg
[2024-04-18] MEDS: ACETAMINOPHEN 1,000 MG/100 ML VIAL IV STA (00:20)
[2024-04-18] MEDS: OLANZapine 10 MG/2.1 ML SDV IM STA (02:27)
[2024-04-18 04:43] LABS: BUN Creatinine Ratio 26.1 (10-20); Calcium 8.8 mg/dl (8.6-10.3); Creatinine Clr Calc Pharmacy 119.3 ml/min; Magnesium 2.2 mg/dl (1.7-2.4); Phosphorus 3.1 mg/dl (2.5-4.9); Potassium 3.8 mmol/L (3.5-5.1)
[2024-04-18 04:59] LABS: Hematocrit (blood only) 32.5 % (42.0-52.0); Hemoglobin 10.6 g/dl (14.0-18.0); Mean Corpuscular Hemoglobin 29.6 pg (25.0-34.0); Mean Corpuscular Hgb Conc 32.6 g/dL (32.0-36.0); Mean Corpuscular Volume 90.8 fL (80.0-100.0); Platelet Count 360 K/uL (130-400); RDW Coefficient of Variation 15.9 % (11.5-14.5); RDW Standard Deviation 51.2 fL (36.4-46.3); Red Blood Count 3.58 M/uL (4.70-6.10)
--- NOTE | 2024-04-18 07:14 | XRay Report ---
SINGLE VIEW CHEST CLINICAL HISTORY: Follow-up airspace consolidation. FINDINGS: An AP, portable, upright chest radiograph is compared to study dated 04/16/2024 and correla zahida with chest CT dated 04/15/2024. The heart is enlarged.. Emphysema and chronic interstitial thicke gunjan is similar to previous. Multifocal airspace opacities are again seen throughout both lungs. This is similar appearance to previous. Small pleural effusions are noted. No pneumothorax is seen. The s keletal structures are osteopenic. The bony thorax is grossly intact. There is distention of the jenaro l loops seen below the diaphragm. IMPRESSION: 1. Cardiomegaly and emphysema. 2. Multifocal airspace opacities throughout both lungs are similar to previous. . 3. There is persistent gaseous distention of the bowel loops seen below diaphragm. ACT 112: Negative or not required by law. Electronically signed by: Haresh Milligan M.D. 04/18/2024 7:11 AM
--- NOTE | 2024-04-18 07:34 | Hospitalist Progress Note ---
Date of Service April 18, 2024 Assessment & Plan (1) Sepsis: (2) Multifocal pneumonia: (3) Lactic acidosis: (4) Schizoaffective disorder: Plan: Multifocal pneumonia Septic shock--POA Lactic acidosis Acute hypoxic respiratory failure with hypoxia --Chest CT:Cardiomegaly and emphysema. Multifocal airspace consolidation is typical for pneumonia. Clinical correlation will be required and radiographic follow-up to resolution is recommended. Trace pleural effusions. Nonspecific pneumatosis intestinalis is seen in the partially imaged left colon. Mildly enlarged mediastinal lymph nodes are nonspecific and likely reactive. --ECHO: Mild concentric LVH. Left ventricle is hyperdynamic. EF> 70%. No regional wall motion abnormality. No significant valvular pathology. Trace circumferential pericardial effusion. --Video Swallow:Silent aspiration with thin liquid barium. Multiple consistency laryngeal penetration. -- BioFire negative --Blood cultures negative to date Procalcitonin elevated 3.1 -> 1.2 -> 0.5 -> 0.1 Nasal MRSA negative Vancomycin discontinued Levophed discontinued Appreciate critical care input Had swallow evaluation on 04/12 Continue aspiration precautions Finished course of abx - azithromycin, Zosyn 04/14 CXR and KUB repeated- cont. to show multifocal pna, colon dilation. lactate normal and procalcitonin down to 1.2. Sputum cultx results - normal nellie. Pt cont. on zosyn and azithro. 04/15/24 Pt's oxygen requirement has increased - overnight placed on highflow oxygen. Discussed with pulmonary/ vascular technician -> plan to transfer to ICU for further eval and care 04/16 -04/17 on 9L of suppl. O2 04/18 - on 5L of suppl. O2 via oxymask. Pulmonary med. following, abx finished Fecal retention Stercoral colitis Pneumatosis intestinalis of left colon ? Obstipation --CT ABD:There is rectosigmoid fecal reaction and moderate to severe constipation with diffuse colonic distention. There is evidence of a nonspecific proctocolitis, likely stercoral. There is nonspecific pneumatosis intestinalis of left colon as detailed above, which may be related to stercoral proctocolitis. This could also potentially be seen in the setting of bowel ischemia. Clinical correlation will be essential. The small bowel loops normal caliber with no evidence of high-grade obstruction. --S/P manual disimpaction on 04/11/2024 --Lactic acidosis improved/ normal 1.1 -- received IV fluids --Appreciate surgery input Continue bowel regimen KUB repeated as abd. cont. to be distended, shows colonic distention - Pt is passing gas, having liquid BMs. -> re-discussed w/ surgery - Per surgery - It is expected that the patient will continue to show bowel dilation on radiology imaging for quite sometime. No acute surgical intervention indicated CT abdomen obtained in ICU (04/15/24)- 1. There is progressive worsening of the large bowel distention with mildly decreased fecal retention in the rectum comp ared to the prior studies. Findings result in a functional large bowel obstruction There is irregular circumferential wall thickening of the anorectal junction which may also be secondary to the aforementioned proctitis and should be correlated with colonoscopy to exclude an obstructing mucosal mass. 2. No pneumatosis or pneumoperitoneum identified. GI was consulted (04/16/24) - He may have a relative obstruction due to his fecal impaction with stercoral colitis. As long as he is moving his bowels and passing gas there usually isn't a risk of perforation and we don't typically see perforation in chronic issues--although we don't have prior Xrays to compare to, he says he has been battling with his bowel movements for four years. It would be dangerous to try any type of unprepped exam of his rectum to assess this "thickened" area in his rectum. When he is stable from an overall medical standpoint and can tolerate aggressive enema/laxative treatment then that is how I would proceed. I agree with surgery that his colon is likely to stay dilated for a while and may always be dilated. 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 The remaining mesenteric arteries are patent. -- Continue aspirin, statin Appreciate vascular surgery input:Discussed on 04/11/2024: Recommends long-term anticoagulation No surgical intervention needed currently as per vascular surgery --Continue IV heparin -> now stopped as INR supratherap. Started on Coumadin - now on hold as INR supratherap. Monitor INR Acute kidney injury Likely multifactorial secondary to dehydration, septic shock Cr improved with IV fluids Monitor renal function Avoid nephrotoxic agents as able Resolved Hypokalemia Replete electrolytes as needed Monitor Schizoaffective disorder Normal Tegretol levels - Continue on Zyprexa, Tegretol Seizure disorder -Continue Keppra and carbamazepine Chronic constipation ? IBS on Linzess Continue Linzess Also started on bowel regimen Encouraged to ambulate COPD -Continue home inhalers Peripheral vascular disease Hyperlipidemia -Chronic, stable continue home meds Hypothyroidism Elevated TSH, normal free T4 -Continue levothyroxine Will need repeat thyroid function test as outpatient GERD -Continue home PPI Glaucoma -patient reports that he is legally blind, assist with ambulation DVT Px: IV Heparin+ Coumadin (now on hold as INR supratherap.) CODE STATUS: Full code Admission and Anticipated Discharge Date Admission Date: April 10, 2024 Subjective Patient seen in follow up of pneumonia, stercoral colitis + cough with sputum (villareal color + red) Had swallow evaluation -> silent aspiration -> resumed diet (aspiration prec autions) Denies any abdominal pain, chest pain, dyspnea Currently on 5L of oxymask Downgraded from ICU yesterday, pulmonary medicine following Overnight required zyprexa, currently drowsy, does not answer appropriately. Seen pt with RNnicolette also at the bedside. Review of Systems Review of Systems: All systems reviewed & are unremarkable except as noted in Subjective Physical Exam Physical Exam: General Appearance:Thin, Frail, Chronically ill appearing, no apparent distress but on 5L of suppl. O2 via oxymask Head: normocephalic, Atraumatic Eyes: normal inspection Neck: supple Respiratory/Chest: + rhonchi, crackles, No accessory muscle use Cardiovascular: S1, S2, No murmur Abdomen/GI:Soft, Non tender, mildly distended, bowel sounds present Extremities/Musculoskeletal:normal inspection, no edema Neurologic/Psych:Awake but not able to answer appropriately, grossly no focal neurological deficits Skin: warm, dry Results & Data Results & Data Vital Signs (Past 12 Hours) Vital Signs Temp Pulse Pulse Resp BP BP Pulse Ox 04/18/24 07:28 81 04/18/24 07:28 92 H 21 98 04/18/24 07:03 36.7 C 91 H 29 H 137/79 99 04/18/24 05:00 82 22 146/84 H 99 04/18/24 04:01 81 23 162/83 H 95 04/18/24 02:01 84 21 143/84 H 95 04/18/24 02:00 04/18/24 01:00 120/74 04/18/24 00:00 132/78 04/17/24 23:30 84 04/17/24 23:00 123/79 04/17/24 22:01 140/81 04/17/24 21:00 121/77 04/17/24 20:30 04/17/24 20:01 128/66 Pulse Ox O2 Del Method O2 Del Method O2 Flow Rate O2 Flow Rate 04/18/24 07:28 04/18/24 07:28 Oxymask 9 04/18/24 07:03 Oxymask 9 04/18/24 05:00 Oxymask 9 04/18/24 04:01 Oxymask 9 04/18/24 02:01 High Flow Nasal Cannula 9 04/18/24 02:00 94 High Flow Nasal Cannula 9 04/18/24 01:00 04/18/24 00:00 04/17/24 23:30 04/17/24 23:00 04/17/24 22:01 04/17/24 21:00 04/17/24 20:30 High Flow Nasal Cannula 9 04/17/24 20:01 Laboratory Results 04/18/24 04/18/24 Range/Units 07:20 03:57 WBC 16.60 H (4.8-10.8) K/ul RBC 3.58 L (4.70-6.10) M/uL Hgb 10.6 L (14.0-18.0) g/dl Hct 32.5 L (42.0-52.0) % MCV 90.8 (80.0-100.0) fL MCH 29.6 (25.0-34.0) pg MCHC 32.6 (32.0-36.0) g/dL RDW Std Deviation 51.2 H (36.4-46.3) fL RDW Coeff of Yadira 15.9 H (11.5-14.5) % Plt Count 360 (130-400) K/uL MPV 12.0 (9.4-12.4) fL PT Pending INR Pending Sodium 137 (136-145) mmol/L Potassium 3.8 (3.5-5.1) mmol/L Chloride 103 (98-107) mmol/L Carbon Dioxide 27 (21-32) mmol/L Anion Gap 7 (3-11) BUN 18 (6-23) mg/dl Creatinine 0.69 (0.6-1.4) mg/dl Est Cr Clr Drug Dosing 119.3 ml/min eGFR 102.06 BUN/Creatinine Ratio 26.1 H (10-20) Glucose 96 (70-99(Fasting)) mg/dl Calcium 8.8 (8.6-10.3) mg/dl Phosphorus 3.1 (2.5-4.9) mg/dl Magnesium 2.2 (1.7-2.4) mg/dl Medications Administered Current Inpatient Medications Acetaminophen (Acetaminophen 325 Mg Tab) 650 mg PO Q4H PRN PRN Reason: Moderate Pain (Scale 4, 5, 6) Stop: 05/10/24 16:06 Last Admin: 04/13/24 14:29 Dose: 650 mg Albuterol (Albuterol Hfa 8 Gm Inhaler) 1 puffs INH Q4H PRN PRN Reason: Shortness Of Breath Stop: 05/11/24 03:36 Last Admin: 04/15/24 03:19 Dose: 1 puffs Albuterol (Albut/Ipratrop 3mg/0.5mg Neb 3 Ml Vial) 3 ml NEB Q6R PRN; Protocol PRN Reason: Shortness Of Breath Or Wheezing Stop: 05/15/24 07:34 Last Admin: 04/15/24 07:53 Dose: 3 ml Aspirin (Aspirin 81 Mg Ectab) 81 mg PO DAILY [facility] Stop: 05/11/24 08:59 Last Admin: 04/17/24 08:59 Dose: Not Given Benzonatate (Benzonatate 100 Mg Capsule) 100 mg PO TID [facility] Stop: 05/10/24 16:06 Last Admin: 04/17/24 21:19 Dose: 100 mg Brimonidine Tartrate (Brimonidine Tartrate 0.2% 5ml) 1 drops OP TID [facility] Stop: 05/10/24 20:59 Last Admin: 04/17/24 21:21 Dose: 1 drops Budesonide (Budesonide 0.5 Mg/2 Ml Vial (Pulmicort)) 0.5 mg NEB BIDR [facility] Stop: 05/15/24 18:59 Last Admin: 04/18/24 07:25 Dose: 0.5 mg Carbamazepine (Carbamazepine 200 Mg Tablet) 200 mg PO BID [facility] Stop: 05/10/24 20:59 Last Admin: 04/17/24 21:21 Dose: 200 mg Docusate Sodium (Docusate Sodium 100 Mg Cap) 100 mg PO BID [facility] Stop: 05/11/24 20:59 Last Admin: 04/17/24 21:19 Dose: 100 mg Formoterol Fumarate (Formoterol 20 Mcg/2 Ml Vial) 20 mcg INH BIDR [facility] Stop: 05/15/24 18:59 Last Admin: 04/18/24 07:25 Dose: 20 mcg Furosemide (Furosemide Inj 20 Mg/2 Ml Vial) 20 mg IV ONE ONE Stop: 04/18/24 07:34 Guaifenesin (Guaifenesin 600 Mg Tabcr) 1,200 mg PO Q12 [facility] Stop: 05/10/24 20:59 Last Admin: 04/17/24 21:20 Dose: 1,200 mg Levetiracetam 500 mg/ Sodium (Chloride) 105 mls @ 420 mls/hr IV Q12H [facility] Stop: 05/15/24 22:59 Last Infusion: 04/18/24 00:00 Dose: Infused Pantoprazole Sodium 40 mg/ (Syringe) 10 mls @ 5 mls/min IV BID [facility] Stop: 05/15/24 21:14 Last Admin: 04/17/24 21:22 Dose: 5 mls/min Piperacillin Sod/Tazobactam Sod (Zosyn) 4.5 gm in 100 mls @ 25 mls/hr IV Q8H [facility]; Protocol Stop: 04/25/24 07:29 Potassium Chloride (K Isaías / Wtr) 10 meq in 100 mls @ 100 mls/hr IV Q1H [facility] Stop: 04/18/24 09:44 Levetiracetam (Levetiracetam 500 Mg Tab) 500 mg PO BID [facility] Stop: 05/11/24 11:59 Last Admin: 04/15/24 10:35 Dose: Not Given Levothyroxine Sodium (Levothyroxine Sodium 175 Mcg Tablet) 175 mcg PO DAILYBB [facility] Stop: 05/11/24 06:29 Last Admin: 04/18/24 06:01 Dose: 175 mcg Linaclotide (Linaclotide 145 Mcg Capsule) 145 mcg PO DAILY [facility] Stop: 05/11/24 01:04 Last Admin: 04/17/24 09:00 Dose: Not Given Magnesium Hydroxide (Magnesium Hydroxide Susp 30 Ml Udc) 30 ml PO Q8H [facility] Stop: 05/10/24 16:29 Last Admin: 04/18/24 00:21 Dose: 30 ml Olanzapine (Olanzapine 5 Mg Tablet) 15 mg PO HS [facility] Stop: 05/10/24 20:59 Last Admin: 04/17/24 21:19 Dose: 15 mg Ondansetron HCl (Ondansetron Inj 2 Mg/Ml 2 Ml Vial) 4 mg IV Q4H PRN PRN Reason: Nausea And Vomiting Stop: 05/10/24 16:06 Pantoprazole Sodium (Pantoprazole 40 Mg Tab) 40 mg PO BID [facility] Stop: 05/10/24 20:59 Last Admin: 04/15/24 21:24 Dose: Not Given Potassium Chloride (Potassium Chloride 10 Meq Tabcr) 10 meq PO BID [facility] Stop: 05/12/24 20:59 Last Admin: 04/15/24 21:24 Dose: Not Given Rosuvastatin Calcium (Rosuvastatin Calcium 10 Mg Tab) 10 mg PO DAILY [facility] Stop: 05/11/24 08:59 Last Admin: 04/17/24 09:00 Dose: Not Given Sodium Chloride (Sodium Chlor 7% 4 Ml Neb) 4 ml NEB BIDR [facility] Stop: 05/10/24 18:59 Last Admin: 04/18/24 07:25 Dose: 4 ml Warfarin Sodium (Warfarin Sod 5 Mg Tab) 5 mg PO DAILY@1600 [facility] Stop: 05/12/24 15:59 Last Admin: 04/14/24 16:27 Dose: 5 mg
[2024-04-18] MEDS: FUROSEMIDE INJ 20 MG/2 ML VIAL IV ONE (08:16)
[2024-04-18] MEDS: 4.5GM X1 IV ONE (08:18)
[2024-04-18] MEDS: POTASSIUM CHLORIDE / WTR 10 MEQ/100 ML PLCT IV SCH (08:19)
[2024-04-18 08:28] LABS: INR 3.2 (0.9-1.1); Prothrombin Time 31.5 Seconds (9.0-12.0)
--- NOTE | 2024-04-18 09:55 | Pulmonology Progress Note ---
Date of Service April 18, 2024 Assessment & Plan (1) COPD with emphysema: (2) Acute respiratory failure with hypoxia: (3) Multifocal pneumonia: Plan Impression: 68-year-old male with schizoaffective disorder admitted with pneumatosis and stool impaction now with hypoxemic respiratory failure concerning for potential multifocal aspiration pneumonia. Recommendations: 1. Pneumonia with hypoxemic respiratory failure: Secondary to aspiration and pneumonia. Continue to wean oxygen as tolerated and defend oxygen saturations of 92%. Currently day #9 Zosyn. Completed 7 days of azithromycin. Initial procalcitonin 3.15 now down to 0.16. Discontinue antibiotics at this point time and follow clinically. Continue gentle diuresis 2. Aspiration risk: Management per primary service and speech therapy. 3. Sputum from 04/16 growing staph species, PCR not available. Patient has completed a full course of antimicrobial therapy at this point in time and antibiotics to be discontinued and the patient follow clinically. 4. COPD: Not bronchospastic currently. Continue nebulized therapies (DuoNeb as needed, scheduled budesonide and Perforomist, hypertonic saline). Out of bed to chair as tolerated. Patient's overall prognosis is guarded given the multiple medical issues with which he is suffering. Strongly recommend discussing CODE STATUS with his care team or patient if he is available. I do not think aggressive interventions such as intubation mechanical ventilation would offer him an improvement in overall quality of life. Admission and Anticipated Discharge Date Admission Date: April 10, 2024 Subjective Patient seen and examined. EMR reviewed. Discussed with off going manager heavy duty as well as bedside nurse. The patient continues to mumble incoherently. According to the guards at bedside, this is not unusual for him. They do state that he slightly louder and may be more confused than baseline. Patient offers no complaints. Unable to obtain any additional history from him at this point time. Review of Systems 2 Review of Systems: Unobtainable due to mental health condition Physical Exam 2 Constitutional: + cachectic and + frail appearing Neck: trachea midline, no thyromegaly Respiratory: no respiratory distress, no labored breathing, no cough and not tachypneic Auscultation: + rhonchi; no wheezes Cardiovascular: RRR, no murmur, no edema Gastrointestinal (Abdomen): normal bowel sounds, soft, nontender, no hepatosplenomegaly Musculoskeletal: Extremities: extremities normal to inspection Skin: no rashes, warm and dry Lymphatic: no cervical lymphadenopathy Results & Data Results & Data Vital Signs (Past 12 Hours) Vital Signs Temp Pulse Pulse Resp BP BP Pulse Ox 04/18/24 09:15 04/18/24 09:01 94 H 25 H 137/106 H 89 L 04/18/24 08:00 94 H 21 136/83 92 04/18/24 07:28 81 04/18/24 07:28 92 H 21 98 04/18/24 07:03 36.7 C 91 H 29 H 137/79 99 04/18/24 07:00 91 H 25 H 137/79 95 04/18/24 05:00 82 22 146/84 H 99 04/18/24 04:01 81 23 162/83 H 95 04/18/24 02:01 84 21 143/84 H 95 04/18/24 02:00 04/18/24 01:00 120/74 04/18/24 00:00 132/78 04/17/24 23:30 84 04/17/24 23:00 123/79 04/17/24 22:01 140/81 Pulse Ox O2 Del Method O2 Del Method O2 Flow Rate O2 Flow Rate 04/18/24 09:15 High Flow Nasal Cannula 9 04/18/24 09:01 High Flow Nasal Cannula 9 04/18/24 08:00 High Flow Nasal Cannula 9 04/18/24 07:28 04/18/24 07:28 Oxymask 9 04/18/24 07:03 Oxymask 9 04/18/24 07:00 High Flow Nasal Cannula 9 04/18/24 05:00 Oxymask 9 04/18/24 04:01 Oxymask 9 04/18/24 02:01 High Flow Nasal Cannula 9 04/18/24 02:00 94 High Flow Nasal Cannula 9 04/18/24 01:00 04/18/24 00:00 04/17/24 23:30 04/17/24 23:00 04/17/24 22:01 Laboratory Results 04/18/24 03:57 04/18/24 03:57 Diagnostic Findings Chest x-ray from today was independently reviewed. There is significant colonic distention again noted subdiaphragmatic Li. Airspace opacities not significantly changed. Cardiomegaly with emphysema noted. PG Care Time/CCT Total # of Minutes Spent Total Time Spent with Patient: Total time spent is greater than 50% in coordination of care (as documented) at patient's floor/unit and/or counseling patient: Coding Level of Care Code 96584 SUB INP/OBS CARE 350MIN Diagnoses COPD with emphysema J43.9 Acute respiratory failure with hypoxia J96.01 Multifocal pneumonia J18.9
[2024-04-18] MEDS ORDERED: PIPERACILLIN/TAZOBACTAM 4.5 GM/100 ML BAG IV SCH (13:00)
[2024-04-19 04:28] LABS: BUN Creatinine Ratio 29.4 (10-20); Calcium 8.8 mg/dl (8.6-10.3); Creatinine Clr Calc Pharmacy 122.6 ml/min; Magnesium 2.5 mg/dl (1.7-2.4); Phosphorus 2.8 mg/dl (2.5-4.9); Potassium 3.9 mmol/L (3.5-5.1)
[2024-04-19 04:35] LABS: Hemoglobin 10.1 g/dl (14.0-18.0); Mean Corpuscular Hemoglobin 29.6 pg (25.0-34.0); Mean Corpuscular Hgb Conc 32.6 g/dL (32.0-36.0); Mean Corpuscular Volume 90.9 fL (80.0-100.0); Mean Platelet Volume 11.8 fL (9.4-12.4); Platelet Count 429 K/uL (130-400); RDW Coefficient of Variation 16.1 % (11.5-14.5); RDW Standard Deviation 52.4 fL (36.4-46.3); Red Blood Count 3.41 M/uL (4.70-6.10); White Blood Count 19.25 K/ul (4.8-10.8)
[2024-04-19 04:37] LABS: INR 2.6 (0.9-1.1); Prothrombin Time 26.2 Seconds (9.0-12.0)
[2024-04-19] MEDS: PANTOprazole 40 MG in SYRINGE BID IV SCH (07:44)
--- NOTE | 2024-04-19 09:16 | Pulmonology Progress Note ---
Date of Service April 19, 2024 Assessment & Plan (1) COPD with emphysema: (2) Acute respiratory failure with hypoxia: (3) Multifocal pneumonia: Plan Impression: 68-year-old male inmate with schizoaffective disorder admitted with pneumatosis and stool impaction now with hypoxemic respiratory failure concerning for potential multifocal aspiration pneumonia. He is completed a full course of antimicrobial therapy. Pulmonary toilet remains an issue Recommendations: 1. Pneumonia with hypoxemic respiratory failure: Completed a full course of antimicrobial therapy including Zosyn and azithromycin with decrease in procalcitonin. White blood cell count elevated but the patient remains afebrile. Continue to hold antibiotics. Continue gentle diuresis 2. Aspiration risk: Management per primary service and speech therapy. 3. Patient would benefit from pulmonary toilet including flutter valve and incentive spirometry however his mental status precludes participation in these therapies. He would also benefit from being upright in a chair is much as possible but his incarcerated state inhibits that as well. Ultimately these are large barriers to improving the patient's overall pulmonary status. 4. COPD: Not bronchospastic currently. Continue nebulized therapies (DuoNeb as needed, scheduled budesonide and Perforomist, hypertonic saline). Out of bed to chair as tolerated. Patient's overall prognosis is guarded given the multiple medical issues with which he is suffering. Strongly recommend discussing CODE STATUS with his care team or patient if he is available. I do not think aggressive interventions such as intubation mechanical ventilation would offer him an improvement in overall quality of life. Admission and Anticipated Discharge Date Admission Date: April 10, 2024 Subjective Patient seen and examined. EMR reviewed. Patient appears to be breathing more comfortably. His oxygen has been weaned down to between 8 and 9 L/min. His mental status precludes compliance with pulmonary toilet at this point in time. He denies any respiratory issues including shortness of breath or chest discomfort. Review of Systems 2 Review of Systems: Unobtainable due to mental health condition Physical Exam 2 Constitutional: + cachectic and + frail appearing Neck: trachea midline, no thyromegaly Respiratory: no respiratory distress, no labored breathing, no cough and not tachypneic Auscultation: + rhonchi; no wheezes Cardiovascular: RRR, no murmur, no edema Gastrointestinal (Abdomen): normal bowel sounds, soft, nontender, no hepatosplenomegaly Musculoskeletal: Extremities: extremities normal to inspection Skin: no rashes, warm and dry Lymphatic: no cervical lymphadenopathy Results & Data Results & Data Vital Signs (Past 12 Hours) Vital Signs Temp Pulse Pulse Resp BP Pulse Ox O2 Del Method 04/19/24 08:44 High Flow Nasal Cannula 04/19/24 07:17 91 H 18 92 Oxymask 04/19/24 07:00 102 H 04/19/24 05:00 87 16 95 04/19/24 04:10 36.8 C 04/19/24 04:03 89 15 94 04/19/24 04:00 122/60 04/19/24 04:00 122/60 04/19/24 03:57 90 26 H 95 04/19/24 03:30 97 H 28 H 93 04/19/24 02:00 93 H 26 H 97 04/19/24 01:00 86 36 H 92 04/19/24 00:15 37 C 04/19/24 00:12 86 28 H 97 04/19/24 00:00 118/86 04/18/24 23:33 87 25 H 93 04/18/24 23:03 77 16 93 04/18/24 22:00 88 37 H 93 O2 Flow Rate 04/19/24 08:44 04/19/24 07:17 9 04/19/24 07:00 04/19/24 05:00 04/19/24 04:10 04/19/24 04:03 04/19/24 04:00 04/19/24 04:00 04/19/24 03:57 04/19/24 03:30 04/19/24 02:00 04/19/24 01:00 04/19/24 00:15 04/19/24 00:12 04/19/24 00:00 04/18/24 23:33 04/18/24 23:03 04/18/24 22:00 Laboratory Results 04/19/24 03:48 04/19/24 03:48 Diagnostic Findings No new imaging PG Care Time/CCT Total # of Minutes Spent Total Time Spent with Patient: Total time spent is greater than 50% in coordination of care (as documented) at patient's floor/unit and/or counseling patient: Coding Level of Care Code 31730 SUB INP/OBS CARE 2/35MIN Diagnoses COPD with emphysema J43.9 Acute respiratory failure with hypoxia J96.01 Multifocal pneumonia J18.9
--- NOTE | 2024-04-19 14:14 | Hospitalist Progress Note ---
Date of Service April 19, 2024 Assessment & Plan (1) Sepsis: (2) Multifocal pneumonia: (3) Lactic acidosis: (4) Schizoaffective disorder: Plan: Multifocal pneumonia Septic shock--POA Lactic acidosis Acute hypoxic respiratory failure with hypoxia --Chest CT:Cardiomegaly and emphysema. Multifocal airspace consolidation is typical for pneumonia. Clinical correlation will be required and radiographic follow-up to resolution is recommended. Trace pleural effusions. Nonspecific pneumatosis intestinalis is seen in the partially imaged left colon. Mildly enlarged mediastinal lymph nodes are nonspecific and likely reactive. --ECHO: Mild concentric LVH. Left ventricle is hyperdynamic. EF> 70%. No regional wall motion abnormality. No significant valvular pathology. Trace circumferential pericardial effusion. --Video Swallow:Silent aspiration with thin liquid barium. Multiple consistency laryngeal penetration. -- BioFire negative --Blood cultures negative to date Procalcitonin elevated 3.1 -> 1.2 -> 0.5 -> 0.1 Nasal MRSA negative Vancomycin discontinued Levophed discontinued Appreciate critical care input Had swallow evaluation on 04/12 Continue aspiration precautions Finished course of abx - azithromycin, Zosyn 04/14 CXR and KUB repeated- cont. to show multifocal pna, colon dilation. lactate normal and procalcitonin down to 1.2. Sputum cultx results - normal nellie. Pt cont. on zosyn and azithro. 04/15/24 Pt's oxygen requirement has increased - overnight placed on highflow oxygen. Discussed with pulmonary/ glass polisher -> plan to transfer to ICU for further eval and care 04/16 -04/17 on 9L of suppl. O2 04/18 - on 5L of suppl. O2 via oxymask. Pulmonary med. following, abx finished 04/19 Pt on 8L of suppl. O2. Fecal retention Stercoral colitis Pneumatosis intestinalis of left colon ? Obstipation --CT ABD:There is rectosigmoid fecal reaction and moderate to severe constipation with diffuse colonic distention. There is evidence of a nonspecific proctocolitis, likely stercoral. There is nonspecific pneumatosis intestinalis of left colon as detailed above, which may be related to stercoral proctocolitis. This could also potentially be seen in the setting of bowel ischemia. Clinical correlation will be essential. The small bowel loops normal caliber with no evidence of high-grade obstruction. --S/P manual disimpaction on 04/11/2024 --Lactic acidosis improved/ normal 1.1 -- received IV fluids --Appreciate surgery input Continue bowel regimen KUB repeated as abd. cont. to be distended, shows colonic distention - Pt is passing gas, having liquid BMs. -> re-discussed w/ surgery - Per surgery - It is expected that the patient will continue to show bowel dilation on radiology imaging for quite sometime. No acute surgical intervention indicated CT abdomen obtained in ICU (04/15/24)- 1. There is progressive worsening of the large bowel distention with mildly decreased fecal retention in the rectum compared to the prior studies. Findings result in a functional large bowel obstruction There is irregular circumferential wall thickening of the anorectal junction which may also be secondary to the aforementioned proctitis and should be correlated with colonoscopy to exclude an obstructing mucosal mass. 2. No pneumatosis or pneumoperitoneum identified. GI was consulted (04/16/24) - He may have a relative obstruction due to his fecal impaction with stercoral colitis. As long as he is moving his bowels and passing gas there usually isn't a risk of perforation and we don't typically see perforation in chronic issues--although we don't have prior Xrays to compare to, he says he has been battling with his bowel movements for four years. It would be dangerous to try any type of unprepped exam of his rectum to assess this "thickened" area in his rectum. When he is stable from an overall medical standpoint and can tolerate aggressive enema/laxative treatment then that is how I would proceed. I agree with surgery that his colon is likely to stay dilated for a while and may always be dilated. 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 The remaining mesenteric arteries are patent. -- Continue aspirin, statin Appreciate vascular surgery input:Discussed on 04/11/2024: Recommends long-term anticoagulation No surgical intervention needed currently as per vascular surgery --Continue IV heparin -> now stopped as INR supratherap. Started on Coumadin - now on hold as INR supratherap. Monitor INR Acute kidney injury Likely multifactorial secondary to dehydration, septic shock Cr improved with IV fluids Monitor renal function Avoid nephrotoxic agents as able Resolved Hypokalemia Replete electrolytes as needed Monitor Schizoaffective disorder Normal Tegretol levels - Continue on Zyprexa, Tegretol Seizure disorder -Continue Keppra and carbamazepine Chronic constipation ? IBS on Linzess Continue Linzess Also started on bowel regimen Encouraged to ambulate COPD -Continue home inhalers Peripheral vascular disease Hyperlipidemia -Chronic, stable continue home meds Hypothyroidism Elevated TSH, normal free T4 -Continue levothyroxine Will need repeat thyroid function test as outpatient GERD -Continue home PPI Glaucoma - reportedly legally blind, assist with ambulation DVT Px: IV Heparin+ Coumadin (now on hold as INR supratherap.) CODE STATUS: Full code Admission and Anticipated Discharge Date Admission Date: April 10, 2024 Subjective Patient seen in follow up of pneumonia, stercoral colitis + cough with sputum (villareal color + red) Had swallow evaluation -> silent aspiration -> resumed diet (aspiration precautions) Currently on 8L of suppl. O2 Discussed w/ pt's RN at the bedside Pt confused - not answering appropriately, per RN pt has not been sleeping Also discussed with [facility] physician - pt remains FULL code - as they can not change pt's code status. They are also in process of finding pt's family to update them about pt's medical condition. Review of Systems Review of Systems: Unobtainable due to cognitive status Physical Exam Physical Exam: General Appearance: Thin, Frail, Chronically ill appearing, no apparent distress but on 8L of suppl. O2 via NC Head: normocephalic, Atraumatic Eyes: normal inspection Neck: supple Respiratory/Chest: + rhonchi, crackles, No accessory muscle use Cardiovascular: S1, S2, No murmur Abdomen/GI:Soft, Non tender, mildly distended, bowel sounds present Extremities/Musculoskeletal:normal inspection, no edema Neurologic/Psych: Drowsy not able to answer appropriately, grossly no focal neurological deficits Skin: warm, dry Results & Data Results & Data Vital Signs (Past 12 Hours) Vital Signs Temp Pulse Pulse Resp BP Pulse Ox O2 Del Method 04/19/24 12:00 97 H 22 124/78 95 Nasal Cannula 04/19/24 08:44 High Flow Nasal Cannula 04/19/24 08:06 94 H 25 H 142/83 H 93 04/19/24 07:17 91 H 18 92 Oxymask 04/19/24 07:00 102 H 04/19/24 05:00 87 16 95 04/19/24 04:10 36.8 C 04/19/24 04:03 89 15 94 04/19/24 04:00 122/60 04/19/24 04:00 122/60 04/19/24 03:57 90 26 H 95 04/19/24 03:30 97 H 28 H 93 O2 Flow Rate 04/19/24 12:00 04/19/24 08:44 04/19/24 08:06 04/19/24 07:17 9 04/19/24 07:00 04/19/24 05:00 04/19/24 04:10 04/19/24 04:03 04/19/24 04:00 04/19/24 04:00 04/19/24 03:57 04/19/24 03:30 Laboratory Results 04/19/24 Range/Units 03:48 WBC 19.25 H (4.8-10.8) K/ul RBC 3.41 L (4.70-6.10) M/uL Hgb 10.1 L (14.0-18.0) g/dl Hct 31.0 L (42.0-52.0) % MCV 90.9 (80.0-100.0) fL MCH 29.6 (25.0-34.0) pg MCHC 32.6 (32.0-36.0) g/dL RDW Std Deviation 52.4 H (36.4-46.3) fL RDW Coeff of Yadira 16.1 H (11.5-14.5) % Plt Count 429 H (130-400) K/uL MPV 11.8 (9.4-12.4) fL PT 26.2 H (9.0-12.0) Seconds INR 2.6 H (0.9-1.1) Sodium 138 (136-145) mmol/L Potassium 3.9 (3.5-5.1) mmol/L Chloride 103 (98-107) mmol/L Carbon Dioxide 28 (21-32) mmol/L Anion Gap 7 (3-11) BUN 20 (6-23) mg/dl Creatinine 0.68 (0.6-1.4) mg/dl Est Cr Clr Drug Dosing 122.6 ml/min eGFR 102.52 BUN/Creatinine Ratio 29.4 H (10-20) Glucose 90 (70-99(Fasting)) mg/dl Calcium 8.8 (8.6-10.3) mg/dl Phosphorus 2.8 (2.5-4.9) mg/dl Magnesium 2.5 H (1.7-2.4) mg/dl Medications Administered Current Inpatient Medications Acetaminophen (Acetaminophen 325 Mg Tab) 650 mg PO Q4H PRN PRN Reason: Moderate Pain (Scale 4, 5, 6) Stop: 05/10/24 16:06 Last Admin: 04/13/24 14:29 Dose: 650 mg Albuterol (Albuterol Hfa 8 Gm Inhaler) 1 puffs INH Q4H PRN PRN Reason: Shortness Of Breath Stop: 05/11/24 03:36 Last Admin: 04/15/24 03:19 Dose: 1 puffs Albuterol (Albut/Ipratrop 3mg/0.5mg Neb 3 Ml Vial) 3 ml NEB Q6R PRN; Protocol PRN Reason: Shortness Of Breath Or Wheezing Stop: 05/15/24 07:34 Last Admin: 04/15/24 07:53 Dose: 3 ml Aspirin (Aspirin 81 Mg Ectab) 81 mg PO DAILY [facility] Stop: 05/11/24 08:59 Last Admin: 04/19/24 07:40 Dose: 81 mg Benzonatate (Benzonatate 100 Mg Capsule) 100 mg PO TID [facility] Stop: 05/10/24 16:06 Last Admin: 04/19/24 07:43 Dose: 100 mg Brimonidine Tartrate (Brimonidine Tartrate 0.2% 5ml) 1 drops OP TID [facility] Stop: 05/10/24 20:59 Last Admin: 04/19/24 07:41 Dose: 1 drops Budesonide (Budesonide 0.5 Mg/2 Ml Vial (Pulmicort)) 0.5 mg NEB BIDR [facility] Stop: 05/15/24 18:59 Last Admin: 04/19/24 07:15 Dose: 0.5 mg Carbamazepine (Carbamazepine 200 Mg Tablet) 200 mg PO BID [facility] Stop: 05/10/24 20:59 Last Admin: 04/19/24 07:41 Dose: 200 mg Docusate Sodium (Docusate Sodium 100 Mg Cap) 100 mg PO BID [facility] Stop: 05/11/24 20:59 Last Admin: 04/19/24 07:43 Dose: 100 mg Formoterol Fumarate (Formoterol 20 Mcg/2 Ml Vial) 20 mcg INH BIDR [facility] Stop: 05/15/24 18:59 Last Admin: 04/19/24 07:15 Dose: 20 mcg Guaifenesin (Guaifenesin 600 Mg Tabcr) 1,200 mg PO Q12 [facility] Stop: 05/10/24 20:59 Last Admin: 04/19/24 07:41 Dose: 1,200 mg Levetiracetam 500 mg/ Sodium (Chloride) 105 mls @ 420 mls/hr IV Q12H [facility] Stop: 05/15/24 22:59 Last Infusion: 04/19/24 13:20 Dose: Infused Pantoprazole Sodium (Protonix) 40 mg in 10 mls @ 5 mls/min IV BID@0900,2100 [facility] Stop: 05/19/24 08:59 Last Admin: 04/19/24 07:44 Dose: 5 mls/min Levetiracetam (Levetiracetam 500 Mg Tab) 500 mg PO BID [facility] Stop: 05/11/24 11:59 Last Admin: 04/15/24 10:35 Dose: Not Given Levothyroxine Sodium (Levothyroxine Sodium 175 Mcg Tablet) 175 mcg PO DAILYBB [facility] Stop: 05/11/24 06:29 Last Admin: 04/19/24 06:43 Dose: 175 mcg Linaclotide (Linaclotide 145 Mcg Capsule) 145 mcg PO DAILY [facility] Stop: 05/11/24 01:04 Last Admin: 04/19/24 07:41 Dose: 145 mcg Magnesium Hydroxide (Magnesium Hydroxide Susp 30 Ml Udc) 30 ml PO Q8H [facility] Stop: 05/10/24 16:29 Last Admin: 04/19/24 07:43 Dose: 30 ml Olanzapine (Olanzapine 5 Mg Tablet) 15 mg PO HS [facility] Stop: 05/10/24 20:59 Last Admin: 04/18/24 20:31 Dose: 15 mg Ondansetron HCl (Ondansetron Inj 2 Mg/Ml 2 Ml Vial) 4 mg IV Q4H PRN PRN Reason: Nausea And Vomiting Stop: 05/10/24 16:06 Pantoprazole Sodium (Pantoprazole 40 Mg Tab) 40 mg PO BID [facility] Stop: 05/10/24 20:59 Last Admin: 04/15/24 21:24 Dose: Not Given Potassium Chloride (Potassium Chloride 10 Meq Tabcr) 10 meq PO BID [facility] Stop: 05/12/24 20:59 Last Admin: 04/15/24 21:24 Dose: Not Given Rosuvastatin Calcium (Rosuvastatin Calcium 10 Mg Tab) 10 mg PO DAILY [facility] Stop: 05/11/24 08:59 Last Admin: 04/19/24 07:40 Dose: 10 mg Sodium Chloride (Sodium Chlor 7% 4 Ml Neb) 4 ml NEB BIDR [facility] Stop: 05/10/24 18:59 Last Admin: 04/19/24 07:15 Dose: 4 ml Warfarin Sodium (Warfarin Sod 5 Mg Tab) 5 mg PO DAILY@1600 [facility] Stop: 05/12/24 15:59 Last Admin: 04/14/24 16:27 Dose: 5 mg
[2024-04-20 04:35] LABS: Hematocrit (blood only) 27.8 % (42.0-52.0); Hemoglobin 9.1 g/dl (14.0-18.0); Mean Corpuscular Hemoglobin 29.8 pg (25.0-34.0); Mean Corpuscular Hgb Conc 32.7 g/dL (32.0-36.0); Mean Corpuscular Volume 91.1 fL (80.0-100.0); Mean Platelet Volume 11.9 fL (9.4-12.4); Platelet Count 424 K/uL (130-400); RDW Coefficient of Variation 16.1 % (11.5-14.5); RDW Standard Deviation 52.9 fL (36.4-46.3); Red Blood Count 3.05 M/uL (4.70-6.10); White Blood Count 16.55 K/ul (4.8-10.8)
[2024-04-20 04:52] LABS: BUN Creatinine Ratio 31.3 (10-20); Calcium 8.5 mg/dl (8.6-10.3); Creatinine Clr Calc Pharmacy 108.8 ml/min; Magnesium 2.4 mg/dl (1.7-2.4); Phosphorus 2.9 mg/dl (2.5-4.9)
[2024-04-20 05:05] LABS: INR 1.8 (0.9-1.1); Prothrombin Time 18.1 Seconds (9.0-12.0)
--- NOTE | 2024-04-20 11:09 | Hospitalist Progress Note ---
Date of Service April 20, 2024 Assessment & Plan (1) Sepsis: (2) Multifocal pneumonia: (3) Lactic acidosis: (4) Schizoaffective disorder: Plan: Multifocal pneumonia Septic shock--POA Lactic acidosis Acute hypoxic respiratory failure with hypoxia --Chest CT:Cardiomegaly and emphysema. Multifocal airspace consolidation is typical for pneumonia. Clinical correlation will be required and radiographic follow-up to resolution is recommended. Trace pleural effusions. Nonspecific pneumatosis intestinalis is seen in the partially imaged left colon. Mildly enlarged mediastinal lymph nodes are nonspecific and likely reactive. --ECHO: Mild concentric LVH. Left ventricle is hyperdynamic. EF> 70%. No regional wall motion abnormality. No significant valvular pathology. Trace circumferential pericardial effusion. --Video Swallow:Silent aspiration with thin liquid barium. Multiple consistency laryngeal penetration. -- BioFire negative --Blood cultures negative to date Procalcitonin elevated 3.1 -> 1.2 -> 0.5 -> 0.1 Nasal MRSA negative Vancomycin discontinued Levophed discontinued Appreciate critical care input Had swallow evaluation on 04/12 Continue aspiration precautions Finished course of abx - azithromycin, Zosyn 04/14 CXR and KUB repeated- cont. to show multifocal pna, colon dilation. lactate normal and procalcitonin down to 1.2. Sputum cultx results - normal nellie. Pt cont. on zosyn and azithro. 04/15/24 Pt's oxygen requirement has increased - overnight placed on highflow oxygen. Discussed with pulmonary/ manager mission -> plan to transfer to ICU for further eval and care 04/16 -04/17 on 9L of suppl. O2 04/18 - on 5L of suppl. O2 via oxymask. Pulmonary med. following, abx finished 04/19 Pt on 8L of suppl. O2. 04/20 on 5 L oxymask. Fecal retention Stercoral colitis Pneumatosis intestinalis of left colon ? Obstipation --CT ABD:There is rectosigmoid fecal reaction and moderate to severe constipation with diffuse colonic distention. There is evidence of a nonspecific proctocolitis, likely stercoral. There is nonspecific pneumatosis intestinalis of left colon as detailed above, which may be related to stercoral proctocolitis. This could also potentially be seen in the setting of bowel ischemia. Clinical correlation will be essential. The small bowel loops normal caliber with no evidence of high-grade obstruction. --S/P manual disimpaction on 04/11/2024 --Lactic acidosis improved/ normal 1.1 -- received IV fluids --Appreciate surgery input Continue bowel regimen KUB repeated as abd. cont. to be distended, shows colonic distention - Pt is passing gas, having liquid BMs. -> re-discussed w/ surgery - Per surgery - It is expected that the patient will continue to show bowel dilation on radiology imaging for quite sometime. No acute surgical intervention indicated CT abdomen obtained in ICU (04/15/24)- 1. There is progressive worsening of the large bowel distention with mildly decreased fecal retention in the rectum compared to the prior studies. Findings result in a functional large bowel obstruction There is irregular circumferential wall thickening of the anorectal junction which may also be secondary to the aforementioned proctitis and should be correlated with colonoscopy to exclude an obstructing mucosal mass. 2. No pneumatosis or pneumoperitoneum identified. GI was consulted (04/16/24) - He may have a relative obstruction due to his fecal impaction with stercoral colitis. As long as he is moving his bowels and passing gas there usually isn't a risk of perforation and we don't typically see perforation in chronic issues--although we don't have prior Xrays to compare to, he says he has been battling with his bowel movements for four years. It would be dangerous to try any type of unprepped exam of his rectum to assess this "thickened" area in his rectum. When he is stable from an overall medical standpoint and can tolerate aggressive enema/laxative treatment then that is how I would proceed. I agree with surgery that his colon is likely to stay dilated for a while and may always be dilated. 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 The remaining mesenteric arteries are patent. -- Continue aspirin, statin Appreciate vascular surgery input:Discussed on 04/11/2024: Recommends long-term anticoagulation No surgical intervention needed currently as per vascular surgery --initially on IV heparin Started on Coumadin - was on hold as INR supratherap., now resumed Monitor INR Acute kidney injury Likely multifactorial secondary to dehydration, septic shock Cr improved with IV fluids Monitor renal function Avoid nephrotoxic agents as able Resolved Hypokalemia Replete electrolytes as needed Monitor Schizoaffective disorder Normal Tegretol levels - Continue on Zyprexa, Tegretol Seizure disorder -Continue Keppra and carbamazepine Chronic constipation ? IBS on Linzess Continue Linzess Also started on bowel regimen Encouraged to ambulate COPD -Continue home inhalers Peripheral vascular disease Hyperlipidemia -Chronic, stable continue home meds Hypothyroidism Elevated TSH, normal free T4 -Continue levothyroxine Will need repeat thyroid function test as outpatient GERD -Continue home PPI Glaucoma - reportedly legally blind, assist with ambulation DVT Px: Coumadin CODE STATUS: Full code Admission and Anticipated Discharge Date Admission Date: April 10, 2024 Subjective Patient seen in follow up of pneumonia, stercoral colitis + cough with sputum (villareal color + red) Had swallow evaluation -> silent aspiration -> resumed diet (aspiration precautions) Currently on 5L of suppl. O2 Discussed w/ pt's RN at the bedside Pt confused/ delirious - not answering appropriately Also discussed with [facility] physician yesterday - pt remains FULL code - as they can not change pt's code status. They are also in process of finding pt's family to update them about pt's medical condition. Review of Systems Review of Systems: All systems reviewed & are unremarkable except as noted in Subjective Physical Exam Physical Exam: General Appearance: Thin, Frail, Chronically ill appearing, no apparent distress but on 5L of suppl. O2 via oxymask Head: normocephalic, Atraumatic Eyes: normal inspection Neck: supple Respiratory/Chest: + mild rhonchi, crackles, No accessory muscle use Cardiovascular: S1, S2, No murmur Abdomen/GI:Soft, Non tender, mildly distended, bowel sounds present Extremities/Musculoskeletal:normal inspection, no edema Neurologic/Psych: Drowsy not able to answer appropriately, grossly no focal neurological deficits Skin: warm, dry Results & Data Results & Data Vital Signs (Past 12 Hours) Vital Signs Temp Pulse Pulse Resp BP Pulse Ox O2 Del Method 04/20/24 08:31 37.2 C 04/20/24 08:15 92 H 25 H 93 04/20/24 08:00 143/113 H 04/20/24 08:00 143/113 H 04/20/24 08:00 143/113 H 04/20/24 07:50 Oxymask 04/20/24 07:39 85 40 H 92 10/16/24 07:05 85 18 92 Oxymask 04/20/24 07:03 85 38 H 91 04/20/24 06:50 88 04/20/24 06:09 89 23 90 04/20/24 05:45 28 H 94 04/20/24 04:03 81 20 91 04/20/24 04:00 90/58 L 04/20/24 04:00 90/58 L 04/20/24 04:00 90/58 L 04/20/24 03:51 68 18 99 04/20/24 03:00 78 11 L 92 04/20/24 02:06 75 12 97 04/20/24 01:09 75 14 96 04/20/24 00:28 81/56 L 04/20/24 00:24 76 14 97 04/20/24 00:03 74 10 L 100 04/20/24 00:00 80/50 L 04/20/24 00:00 80/50 L 04/20/24 00:00 80/50 L 04/19/24 23:45 77 14 88 L 04/19/24 23:24 36.8 C O2 Flow Rate 04/20/24 08:31 04/20/24 08:15 04/20/24 08:00 04/20/24 08:00 04/20/24 08:00 04/20/24 07:50 10 04/20/24 07:39 04/20/24 07:05 10 04/20/24 07:03 04/20/24 06:50 04/20/24 06:09 04/20/24 05:45 04/20/24 04:03 04/20/24 04:00 04/20/24 04:00 04/20/24 04:00 04/20/24 03:51 04/20/24 03:00 04/20/24 02:06 04/20/24 01:09 04/20/24 00:28 04/20/24 00:24 04/20/24 00:03 04/20/24 00:00 04/20/24 00:00 04/20/24 00:00 04/19/24 23:45 04/19/24 23:24 Laboratory Results 04/20/24 Range/Units 03:50 WBC 16.55 H (4.8-10.8) K/ul RBC 3.05 L (4.70-6.10) M/uL Hgb 9.1 L (14.0-18.0) g/dl Hct 27.8 L (42.0-52.0) % MCV 91.1 (80.0-100.0) fL MCH 29.8 (25.0-34.0) pg MCHC 32.7 (32.0-36.0) g/dL RDW Std Deviation 52.9 H (36.4-46.3) fL RDW Coeff of Yadira 16.1 H (11.5-14.5) % Plt Count 424 H (130-400) K/uL MPV 11.9 (9.4-12.4) fL PT 18.1 H (9.0-12.0) Seconds INR 1.8 H (0.9-1.1) Sodium 140 (136-145) mmol/L Potassium 4.0 (3.5-5.1) mmol/L Chloride 106 (98-107) mmol/L Carbon Dioxide 28 (21-32) mmol/L Anion Gap 6 (3-11) BUN 21 (6-23) mg/dl Creatinine 0.67 (0.6-1.4) mg/dl Est Cr Clr Drug Dosing 108.8 ml/min eGFR 102.98 BUN/Creatinine Ratio 31.3 H (10-20) Glucose 90 (70-99(Fasting)) mg/dl Calcium 8.5 L (8.6-10.3) mg/dl Phosphorus 2.9 (2.5-4.9) mg/dl Magnesium 2.4 (1.7-2.4) mg/dl Medications Administered Current Inpatient Medications Acetaminophen (Acetaminophen 325 Mg Tab) 650 mg PO Q4H PRN PRN Reason: Moderate Pain (Scale 4, 5, 6) Stop: 05/10/24 16:06 Last Admin: 04/13/24 14:29 Dose: 650 mg Albuterol (Albuterol Hfa 8 Gm Inhaler) 1 puffs INH Q4H PRN PRN Reason: Shortness Of Breath Stop: 05/11/24 03:36 Last Admin: 04/15/24 03:19 Dose: 1 puffs Albuterol (Albut/Ipratrop 3mg/0.5mg Neb 3 Ml Vial) 3 ml NEB Q6R PRN; Protocol PRN Reason: Shortness Of Breath Or Wheezing Stop: 05/15/24 07:34 Last Admin: 04/20/24 07:03 Dose: 3 ml Aspirin (Aspirin 81 Mg Ectab) 81 mg PO DAILY [facility] Stop: 05/11/24 08:59 Last Admin: 04/20/24 07:56 Dose: 81 mg Benzonatate (Benzonatate 100 Mg Capsule) 100 mg PO TID [facility] Stop: 05/10/24 16:06 Last Admin: 04/20/24 07:58 Dose: 100 mg Brimonidine Tartrate (Brimonidine Tartrate 0.2% 5ml) 1 drops OP TID [facility] Stop: 05/10/24 20:59 Last Admin: 04/20/24 07:56 Dose: 1 drops Budesonide (Budesonide 0.5 Mg/2 Ml Vial (Pulmicort)) 0.5 mg NEB BIDR [facility] Stop: 05/15/24 18:59 Last Admin: 04/20/24 07:03 Dose: 0.5 mg Carbamazepine (Carbamazepine 200 Mg Tablet) 200 mg PO BID [facility] Stop: 05/10/24 20:59 Last Admin: 04/20/24 07:56 Dose: 200 mg Docusate Sodium (Docusate Sodium 100 Mg Cap) 100 mg PO BID [facility] Stop: 05/11/24 20:59 Last Admin: 04/20/24 07:58 Dose: 100 mg Formoterol Fumarate (Formoterol 20 Mcg/2 Ml Vial) 20 mcg INH BIDR [facility] Stop: 05/15/24 18:59 Last Admin: 04/20/24 07:03 Dose: 20 mcg Guaifenesin (Guaifenesin 600 Mg Tabcr) 1,200 mg PO Q12 [facility] Stop: 05/10/24 20:59 Last Admin: 04/20/24 07:56 Dose: 1,200 mg Levetiracetam 500 mg/ Sodium (Chloride) 105 mls @ 420 mls/hr IV Q12H [facility] Stop: 05/15/24 22:59 Last Infusion: 04/20/24 10:56 Dose: Infused Pantoprazole Sodium (Protonix) 40 mg in 10 mls @ 5 mls/min IV BID@0900,2100 [facility] Stop: 05/19/24 08:59 Last Admin: 04/20/24 07:59 Dose: 5 mls/min Levetiracetam (Levetiracetam 500 Mg Tab) 500 mg PO BID [facility] Stop: 05/11/24 11:59 Last Admin: 04/15/24 10:35 Dose: Not Given Levothyroxine Sodium (Levothyroxine Sodium 175 Mcg Tablet) 175 mcg PO DAILYBB [facility] Stop: 05/11/24 06:29 Last Admin: 04/20/24 06:47 Dose: Not Given Linaclotide (Linaclotide 145 Mcg Capsule) 145 mcg PO DAILY [facility] Stop: 05/11/24 01:04 Last Admin: 04/20/24 07:56 Dose: 145 mcg Magnesium Hydroxide (Magnesium Hydroxide Susp 30 Ml Udc) 30 ml PO Q8H [facility] Stop: 05/10/24 16:29 Last Admin: 04/20/24 07:55 Dose: 30 ml Olanzapine (Olanzapine 5 Mg Tablet) 15 mg PO HS [facility] Stop: 05/10/24 20:59 Last Admin: 04/19/24 21:09 Dose: 15 mg Ondansetron HCl (Ondansetron Inj 2 Mg/Ml 2 Ml Vial) 4 mg IV Q4H PRN PRN Reason: Nausea And Vomiting Stop: 05/10/24 16:06 Pantoprazole Sodium (Pantoprazole 40 Mg Tab) 40 mg PO BID [facility] Stop: 05/10/24 20:59 Last Admin: 04/15/24 21:24 Dose: Not Given Potassium Chloride (Potassium Chloride 10 Meq Tabcr) 10 meq PO BID [facility] Stop: 05/12/24 20:59 Last Admin: 04/15/24 21:24 Dose: Not Given Rosuvastatin Calcium (Rosuvastatin Calcium 10 Mg Tab) 10 mg PO DAILY [facility] Stop: 05/11/24 08:59 Last Admin: 04/20/24 07:56 Dose: 10 mg Sodium Chloride (Sodium Chlor 7% 4 Ml Neb) 4 ml NEB BIDR [facility] Stop: 05/10/24 18:59 Last Admin: 04/20/24 07:00 Dose: 4 ml Warfarin Sodium (Warfarin Sod 3 Mg Tab) 3 mg PO DAILY@1600 [facility] Stop: 05/20/24 15:59
--- NOTE | 2024-04-20 11:35 | Pulmonology Progress Note ---
Date of Service April 20, 2024 Assessment & Plan (1) COPD with emphysema: (2) Acute respiratory failure with hypoxia: (3) Multifocal pneumonia: Plan Impression: 68-year-old male inmate with schizoaffective disorder admitted with pneumatosis and stool impaction now with hypoxemic respiratory failure concerning for potential multifocal aspiration pneumonia. He is completed a full course of antimicrobial therapy. Compliance with pulmonary toilet is limited due to the patient's underlying mental status issues and underlying delirium. Recommendations: 1. Pneumonia with hypoxemic respiratory failure: Completed a full course of antimicrobial therapy including Zosyn and azithromycin with decrease in procalcitonin. White blood cell count decreasing and the patient remains afebrile. Continue to hold antibiotics. Continue gentle diuresis 2. Aspiration risk: Management per primary service and speech therapy. 3. Patient would benefit from pulmonary toilet including flutter valve and incentive spirometry however his mental status and delirium precludes participa tion in these therapies. He would also benefit from being upright in a chair is much as possible. Discussed with guards and they say as long as the patient can be Safely and they can secure him with restraints, he may be up to a chair. Will defer to the primary service and nursing. 4. COPD: Not bronchospastic currently. Continue nebulized therapies (DuoNeb as needed, scheduled budesonide and Perforomist). Out of bed to chair as tolerated. Discontinue hypertonic saline at this point time Patient's pulmonary status at this point time is limited by his ability to participate in effective pulmonary toilet exacerbated by his underlying delirium and mental status issues. Not much else to add at this point in time. Will follow peripherally. Feel free to contact us with specific questions Admission and Anticipated Discharge Date Admission Date: April 10, 2024 Subjective Patient remains delirious. He does report some occasional cough and sputum production. He is intermittently removing his facemask. He does not report significant shortness of breath. Review of Systems Review of Systems: Unobtainable due to mental health condition Physical Exam Constitutional: + cachectic and + frail appearing Neck: trachea midline, no thyromegaly Respiratory: no respiratory distress, no labored breathing, no cough and not tachypneic Auscultation: + rhonchi; no wheezes Cardiovascular: RRR, no murmur, no edema Gastrointestinal (Abdomen): normal bowel sounds, soft, nontender, no hepatosplenomegaly Musculoskeletal: Extremities: extremities normal to inspection Skin: no rashes, warm and dry Lymphatic: no cervical lymphadenopathy Results & Data Results & Data Vital Signs (Past 12 Hours) Vital Signs Temp Pulse Pulse Resp BP Pulse Ox O2 Del Method 04/20/24 08:31 37.2 C 04/20/24 08:15 92 H 25 H 93 04/20/24 08:00 143/113 H 04/20/24 08:00 143/113 H 04/20/24 08:00 143/113 H 04/20/24 07:50 Oxymask 04/20/24 07:39 85 40 H 92 04/20/24 07:05 85 18 92 Oxymask 04/20/24 07:03 85 38 H 91 04/20/24 06:50 88 04/20/24 06:09 89 23 90 04/20/24 05:45 28 H 94 04/20/24 04:03 81 20 91 04/20/24 04:00 90/58 L 04/20/24 04:00 90/58 L 04/20/24 04:00 90/58 L 04/20/24 03:51 68 18 99 04/20/24 03:00 78 11 L 92 04/20/24 02:06 75 12 97 04/20/24 01:09 75 14 96 04/20/24 00:28 81/56 L 04/20/24 00:24 76 14 97 04/20/24 00:03 74 10 L 100 04/20/24 00:00 80/50 L 04/20/24 00:00 80/50 L 04/20/24 00:00 80/50 L 04/19/24 23:45 77 14 88 L O2 Flow Rate 04/20/24 08:31 04/20/24 08:15 04/20/24 08:00 04/20/24 08:00 04/20/24 08:00 04/20/24 07:50 10 04/20/24 07:39 04/20/24 07:05 10 04/20/24 07:03 04/20/24 06:50 04/20/24 06:09 04/20/24 05:45 04/20/24 04:03 04/20/24 04:00 04/20/24 04:00 04/20/24 04:00 04/20/24 03:51 04/20/24 03:00 04/20/24 02:06 04/20/24 01:09 04/20/24 00:28 04/20/24 00:24 04/20/24 00:03 04/20/24 00:00 04/20/24 00:00 04/20/24 00:00 04/19/24 23:45 Critical Care Results & Data Vital Signs (Past 12 Hours) Vital Signs Temp Pulse Pulse Resp BP Pulse Ox O2 Del Method 04/20/24 08:31 37.2 C 04/20/24 08:15 92 H 25 H 93 04/20/24 08:00 143/113 H 04/20/24 08:00 143/113 H 04/20/24 08:00 143/113 H 04/20/24 07:50 Oxymask 04/20/24 07:39 85 40 H 92 04/20/24 07:05 85 18 92 Oxymask 04/20/24 07:03 85 38 H 91 04/20/24 06:50 88 04/20/24 06:09 89 23 90 04/20/24 05:45 28 H 94 04/20/24 04:03 81 20 91 04/20/24 04:00 90/58 L 04/20/24 04:00 90/58 L 04/20/24 04:00 90/58 L 04/20/24 03:51 68 18 99 04/20/24 03:00 78 11 L 92 04/20/24 02:06 75 12 97 04/20/24 01:09 75 14 96 04/20/24 00:28 81/56 L 04/20/24 00:24 76 14 97 04/20/24 00:03 74 10 L 100 04/20/24 00:00 80/50 L 04/20/24 00:00 80/50 L 04/20/24 00:00 80/50 L 04/19/24 23:45 77 14 88 L O2 Flow Rate 04/20/24 08:31 04/20/24 08:15 04/20/24 08:00 04/20/24 08:00 04/20/24 08:00 04/20/24 07:50 10 04/20/24 07:39 04/20/24 07:05 10 04/20/24 07:03 04/20/24 06:50 04/20/24 06:09 04/20/24 05:45 04/20/24 04:03 04/20/24 04:00 04/20/24 04:00 04/20/24 04:00 04/20/24 03:51 04/20/24 03:00 04/20/24 02:06 04/20/24 01:09 04/20/24 00:28 04/20/24 00:24 04/20/24 00:03 04/20/24 00:00 04/20/24 00:00 04/20/24 00:00 04/19/24 23:45 Lab & Micro Results (Past 24 Hours) RBC 3.05 M/uL (4.70-6.10) L 04/20/24 WBC 16.55 K/ul (4.8-10.8) H 04/20/24 Hgb 9.1 g/dl (14.0-18.0) L 04/20/24 Hct 27.8 % (42.0-52.0) L 04/20/24 MCV 91.1 fL (80.0-100.0) 04/20/24 MCH 29.8 pg (25.0-34.0) 04/20/24 MCHC 32.7 g/dL (32.0-36.0) 04/20/24 RDW Standard Deviation 52.9 fL (36.4-46.3) H 04/20/24 RDW Coefficient of Variation 16.1 % (11.5-14.5) H 04/20/24 Plt Count 424 K/uL (130-400) H 04/20/24 MPV 11.9 fL (9.4-12.4) 04/20/24 Na 140 mmol/L (136-145) 04/20/24 K 4.0 mmol/L (3.5-5.1) 04/20/24 Cl 106 mmol/L (98-107) 04/20/24 CO2 28 mmol/L (21-32) 04/20/24 Anion Gap 6 (3-11) 04/20/24 BUN 21 mg/dl (6-23) 04/20/24 Creatinine 0.67 mg/dl (0.6-1.4) 04/20/24 BUN/Creatinine Ratio 31.3 (10-20) H 04/20/24 Glu 90 mg/dl (70-99(Fasting)) 04/20/24 Ca 8.5 mg/dl (8.6-10.3) L 04/20/24 Phosphorus Level 2.9 mg/dl (2.5-4.9) 04/20/24 Mg 2.4 mg/dl (1.7-2.4) 04/20/24 03:50 Calcium Level 8.5 mg/dl (8.6-10.3) L 04/20/24 03:50 Prothromb Time International Ratio 1.8 (0.9-1.1) H 04/20/24 03 :50 I & O Totals 24 Hours 04/19/24 04/20/24 04/21/24 06:59 06:59 06:59 Intake Total 405 / 405 210 / 210 105 / 105 Output Total 2800 / 2800 2300 / 2300 Balance -2395 / -2395 -2090 / -2090 105 / 105 Cumulative 04/10/24 11:26 thru 04/20/24 10:56 Intake Total 03692.030 Output Total 31445 Balance -3147.970 RT Ventilator Mngmt (Last Documented) Ventilator Ordered Settings Respiratory Rate 25 04/20/24 08:15 Fraction of Inspired Oxygen 45 04/16/24 14:34 Ventilator - PT Measurements Respiratory Rate 25 PG Care Time/CCT Total # of Minutes Spent Total Time Spent with Patient: Total time spent is greater than 50% in coordination of care (as documented) at patient's floor/unit and/or counseling patient: Coding Level of Care Code 67413 SUB INP/OBS CARE 2/35MIN Diagnoses COPD with emphysema J43.9 Acute respiratory failure with hypoxia J96.01 Multifocal pneumonia J18.9
[2024-04-20] MEDS: WARFARIN SOD 3 MG TAB PO SCH (16:03)
[2024-04-20] MEDS: levETIRAcetam 500 MG TAB PO SCH (21:42)
--- NOTE | 2024-04-21 08:06 | Pulmonology Progress Note ---
Date of Service April 21, 2024 Assessment & Plan (1) COPD with emphysema: (2) Acute respiratory failure with hypoxia: (3) Multifocal pneumonia: Plan Impression: 68-year-old male inmate with schizoaffective disorder admitted with pneumatosis and stool impaction now with hypoxemic respiratory failure concerning for potential multifocal aspiration pneumonia. He is completed a full course of antimicrobial therapy. Compliance with pulmonary toilet is limited due to the patient's underlying mental status issues and underlying delirium. Recommendations: 1. Pneumonia with hypoxemic respiratory failure: Completed a full course of antimicrobial therapy including Zosyn and azithromycin with decrease in procalcitonin. White blood cell count decreasing and the patient remains afebrile. Continue to hold antibiotics. Continue gentle diuresis 2. Aspiration risk: Management per primary service and speech therapy. 3. Patient would benefit from pulmonary toilet including flutter valve and incentive spirometry however his mental status and delirium precludes participation in these therapies. He would also benefit from being upright in a chair is much as possible. Discussed with guards and they say as long as the patient can be Safely and they can secure him with restraints, he may be up to a chair. Will defer to the primary service and nursing. 4. COPD: Not bronchospastic currently. Continue nebulized therapies (DuoNeb as needed, scheduled budesonide and Perforomist). Out of bed to chair as tolerated. Discontinue hypertonic saline at this point time Patient significantly improving at this point in time. Continue to wean oxygen as tolerated. Pulmonary will sign off. Feel free to contact us with questions or concerns Admission and Anticipated Discharge Date Admission Date: April 10, 2024 Subjective Patient seen and examined. EMR reviewed. Patient remains delirious but is somewhat better today. His oxygen requirement significantly decreased. He is not expressing any new concerns Review of Systems 2 Review of Systems: Unobtainable due to mental health condition Physical Exam 2 Constitutional: + cachectic and + frail appearing Neck: trachea midline, no thyromegaly Respiratory: no respiratory distress, no labored breathing, no cough and not tachypneic Auscultation: + rhonchi; no wheezes Cardiovascular: RRR, no murmur, no edema Gastrointestinal (Abdomen): normal bowel sounds, soft, nontender, no hepatosplenomegaly Musculoskeletal: Extremities: extremities normal to inspection Skin: no rashes, warm and dry Lymphatic: no cervical lymphadenopathy Results & Data Results & Data Vital Signs (Past 12 Hours) Vital Signs Temp Pulse Pulse Resp BP Pulse Ox O2 Del Method 04/21/24 07:44 36.7 C 92 H 20 93/67 L 98 Oxymask 04/21/24 07:08 83 18 98 Oxymask 04/21/24 03:59 37.0 C 86 20 105/65 91 Nasal Cannula 04/20/24 23:00 83 04/20/24 22:51 36.9 C 83 20 98/65 L 92 Oxymask 04/20/24 21:00 Oxymask O2 Flow Rate 04/21/24 07:44 3.5 04/21/24 07:08 4 04/21/24 03:59 4 04/20/24 23:00 04/20/24 22:51 4 04/20/24 21:00 5 Laboratory Results 04/20/24 03:50 04/20/24 03:50 PG Care Time/CCT Total # of Minutes Spent Total Time Spent with Patient: Total time spent is greater than 50% in coordination of care (as documented) at patient's floor/unit and/or counseling patient: Coding Level of Care Code 87790 SUB INP/OBS CARE 2/35MIN Diagnoses COPD with emphysema J43.9 Acute respiratory failure with hypoxia J96.01 Multifocal pneumonia J18.9
[2024-04-21 08:33] LABS: BUN Creatinine Ratio 27.4 (10-20); Creatinine Clr Calc Pharmacy 93.3 ml/min; Magnesium 2.9 mg/dl (1.7-2.4); Potassium 3.3 mmol/L (3.5-5.1)
[2024-04-21 08:34] LABS: Hematocrit (blood only) 32.4 % (42.0-52.0); Hemoglobin 10.3 g/dl (14.0-18.0); Mean Corpuscular Hemoglobin 29.3 pg (25.0-34.0); Mean Corpuscular Hgb Conc 31.8 g/dL (32.0-36.0); Mean Corpuscular Volume 92.3 fL (80.0-100.0); Mean Platelet Volume 11.7 fL (9.4-12.4); Platelet Count 588 K/uL (130-400); RDW Coefficient of Variation 16.5 % (11.5-14.5); RDW Standard Deviation 54.3 fL (36.4-46.3); Red Blood Count 3.51 M/uL (4.70-6.10)
[2024-04-21 08:42] LABS: INR 1.8 (0.9-1.1); Prothrombin Time 18.6 Seconds (9.0-12.0)
[2024-04-21 08:52] LABS: White Blood Count 15.39 K/ul (4.8-10.8)
[2024-04-21 11:36] VITALS: RESP 17; TEMP 99.5; O2SAT 91
--- NOTE | 2024-04-21 12:33 | Discharge Summary ---
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 Patient was admitted to the hospital. Given broad-spectrum antibiotics for multifocal pneumonia that was presumed to be aspiration pneumonia. He was given interventions to help clear out his bowels. Patient became hypotensive requiring ICU level care. Placed on pressors. He also needed high flow oxygen support for his respiratory failure associated with his multifocal pneumonia. Speech And Language Tutor were consulted involved in his care. GI consultation was obtained for his fecal impaction. Surgical consultation was also obtained. Both and recommended ongoing conservative treatment for his impaction. Patient did have evidence of SMA occlusion on imaging. Surgery recommended no intervention, however did recommend long-term oral anticoagulation. He was seen by speech and his diet was modified. As he was treated for his infection he is stabilized. His placed on a regular bowel regimen. He is transferred out of the ICU. His oxygen requirements slowly improved as he improved. He completed a full course of antibiotics here in the hospital. With his cognitive abilities limited but his psychiatric disease he was transition to nebulizer treatments to manage his chronic COPD. He seemed to do much better with this versus inhalers. On the day of discharge he was saturating well on 3 L. He is back to his baseline mental status. Tolerating diet. He was moving his bowels regularly and daily. [facility]. Patient was signed out to Dr. Hutchinson. Hiro Hamilton. Notes For Next Care Provider Continue to ensure patient is having daily bowel movements Encouraged activity is much as possible Check PT/INR in 2 to 3 days. Goal INR 2-3 Oxygen 3L at all times titrate to off as able Medication Changes From Visit Pulmicort nebulizers started Formoterol nebulizer started DuoNeb utilized as needed MiraLAX, Colace, senna daily for his chronic constipation issues Admission HPI Per Admitting Provider This is a 68-year-old male with PMHx of schizoaffective disorder, seizure, last seizure was many years ago, COPD, GERD, glaucoma, chronic constipation, hypothyroidism, HLD from [facility] facility who presents to the hospital with worsening altered mental status, increased confusion compared to his baseline via [facility]. Pt states that he did not feel well for past few days, vomited x 1 today, and may have passed out at the prision. He states that he was admitted to a hospital 4 days ago but I cannot see any documentation from any recent hospitalization. Pt was found to be hypotensive with SBP in the 60s, hypoxic with O2 sats in the 80s, and was placed on a nonrebreather and administered sepsis protocol fluid resuscitation here in the ER. CXR is concerning for multifocal pneumonia with questionable pulmonary edema. He was started on cefepime and azithromycin IV for treatment of such. He is currently on an oxy mask at 6 L with O2 sats at 94%. Blood pressure has improved to 106/70 status post 1.5 L normal saline. Surgical Hx: Unknown Family Hx: Noncontributory Social Hx: Denies alcohol, ilicit drug use, previous smoking hx Admission Exam Per Admitting Provider See H&P Discharge Exam Constitutional: Alert, nontoxic, somewhat frail HEENT: Mucous membranes moist. Lungs: Decreased breath sounds, prolonged expiratory phase, no wheezes few rhonchi that clears with cough CV: S1-S2, regular Abdomen: Soft, nontender, nondistended Extremities: No significant edema Neuro: No focal deficits Psych: Cooperative, at baseline Updated Medication List Medication Instructions Recorded Confirmed Type albuterol 90 mcg/actuation aerosol 90 mcg inhalation Q4H PRN 04/10/24 04/10/24 History inhaler Shortness Of Breath aspirin 81 mg capsule 81 mg PO DAILY 04/10/24 04/10/24 History brimonidine 0.2 % eye drops 1 drp ophthalmic (eye) TID 04/10/24 04/10/24 History calcium polycarbophil 625 mg 1,250 mg PO BID 04/10/24 04/10/24 History tablet (FiberCon) carbamazepine 200 mg tablet 200 mg PO BID 04/10/24 04/10/24 History cholecalciferol (vitamin D3) 25 25 mcg PO DAILY 04/10/24 04/10/24 History mcg (1,000 unit) tablet ciclesonide 80 mcg/actuation 1 puff inhalation Q12H 04/10/24 04/10/24 History aerosol inhaler (Alvesco) levetiracetam 500 mg tablet 500 mg PO BID 04/10/24 04/10/24 History levothyroxine 175 mcg tablet 175 mcg PO DAILY 04/10/24 04/10/24 History linaclotide 145 mcg capsule 145 mcg PO DAILY 04/10/24 04/10/24 History (Linzess) olanzapine 15 mg tablet 15 mg PO HS 04/10/24 04/10/24 History omeprazole 40 mg capsule,delayed 40 mg PO BID 04/10/24 04/10/24 History release rosuvastatin 10 mg tablet 10 mg PO DAILY 04/10/24 04/10/24 History budesonide 0.5 mg/2 mL suspension 0.5 mg (2 mL) NEB BIDR 30 days #60 04/21/24 Rx for nebulization mL docusate sodium 100 mg capsule 100 mg PO BID 30 days #60 caps 04/21/24 Rx formoterol fumarate 20 mcg/2 mL 20 mcg (2 mL) inhalation BIDR 30 04/21/24 Rx solution for nebulization days #120 mL (Perforomist) ipratropium 0.5 mg-albuterol 3 mg 3 ml NEB Q6H PRN Shortness Of 04/21/24 Rx (2.5 mg base)/3 mL nebulization Breath Or Wheezing #180 mL soln polyethylene glycol 3350 17 17 g PO DAILY #850 grams 04/21/24 Rx gram/dose oral powder (Miralax) sennosides 8.6 mg tablet (senna) 8.6 mg PO BID #60 tabs 04/21/24 Rx warfarin 3 mg tablet 3 mg PO DAILY@1600 30 days #30 tabs 04/21/24 Rx Hospital Stay Data Consultations 04/10/24 13:44 ED Decision to Admit Stat 04/11/24 02:59 Consult Speech And Language Tutor Routine 04/11/24 07:18 Consult General Surgery Routine 04/11/24 09:38 Consult Vascular Surgery Routine 04/15/24 07:12 Consult Pulmonology Routine 04/15/24 10:21 Consult Speech And Language Tutor Routine 04/16/24 08:13 Consult Gastroenterology Routine Diagnostic Imagining Performed 04/10/24 11:41 CT head/brain wo con Stat 04/10/24 14:07 CT abd pelvis wo con Stat CT chest diagnostic wo con Stat 04/11/24 03:07 CT angio abdomen pelvis w con Stat 04/12/24 10:30 FL video swallow Routine 04/15/24 15:47 CT chest diagnostic wo con Urgent 04/15/24 16:34 CT abd pelvis wo con Stat Reviewed imaging, laboratory and diagnostic studies. Pertinent findings as below. INR 1.8 WBCs 15.3, steadily improving Hemoglobin 10.3 Creatinine 0.73 Echocardiogram showed ejection fraction 70%, no wall motion abnormalities. I refer to the full report for details Blood cultures no growth Pending Results Patient Have Any Pending Studies at Discharge: No Discharge Instructions Given to Patient (Per Discharging Provider) Encourage activity Encourage patient to sit up in the chair, take deep breaths, attempted do flutter valve. Patient may benefit from chest physical therapy Recommend physical therapy and Occupational Therapy Total Time Total Time Spent Total Time Spent (In Minutes): 45
[2024-04-21 12:53] VITALS: BP 110/70; PULSE 83
[2024-04-21] MEDS: POTASSIUM CHLORIDE CRTAB 20 MEQ TABCR PO STA (13:19)
== END 2024-04-21 14:48 | DRG 871 ==
LOC: ED 11:26 → 2E 13:52 → SUATTDRO 13:52 → 2E 15:25 → 1E 04-11 03:11 → 2S 04-11 14:18 → 1E 04-15 12:10 → 4W 04-20 17:23